=== PATIENT | female | born 1950 | race Caucasian/White ===

== ENCOUNTER → 2017-10-22 10:01 | Outpatient (CLI) | payer OTHER, SELFPAY ==
[2017-10-22 11:21] LABS: Add Manual Diff / Slide Review NO; Basophils Percent Auto 0.7 % (0-2); Eosinophils Percent Auto 2.8 % (2-4); Hematocrit 38.4 % (36-46); Hemoglobin 13.3 g/dL (12.0-16.0); Mean Corpuscular HGB Conc 34.7 % (30-36); Mean Corpuscular Hemoglobin 31.6 PG (26-34); Mean Corpuscular Volume 91.2 fL (80-100); Monocytes Percent Auto 7.3 % (3-14); Neutrophils Absolute Auto 2100 /uL (3000-5900); Neutrophils Percent Auto 48.2 % (50-75); Platelet Count 231 X10^3/uL (150-400); Red Blood Cell Count 4.21 X10^6/uL (4.0-5.2); Red Cell Distribution Width 13.8 % (11.6-14.8); White Blood Cell Count 4.4 X10^3/uL (4.5-11.0)
[2017-10-22 11:26] LABS: Alanine Aminotransferase 29 IU/L (9-52); Albumin 4.1 g/dL (3.5-5.0); Albumin Globulin Ratio 1.5 (1.0-2.8); Alkaline Phosphatase 59 U/L (38-126); Aspartate Aminotransferase 22 IU/L (14-36); Bilirubin Total 0.4 mg/dL (0.2-1.3); Bilirubin Unconjugated 0.1 mg/dL (0.0-1.1); Globulin 2.8 g/dL (1.7-4.1); HEMOLYSIS < 15 (0-50); Total Protein 6.9 g/dL (6.3-8.2)
[2017-10-22 11:48] LABS: Thyroid Stimulating Hormone 1.51 uIU/mL (0.47-4.68)
[2017-10-22 12:36] LABS: Erythrocyte Sedimentation Rate 41 MM/HR (0-20)
== END ==
PROVIDERS: Family Provider Family Medicine; PCP Family Medicine; Visit Provider Physician Assistant Medical
DX: L50.8 Other urticaria (principal)
CPT/HCPCS: 36415; 80076; 84443; 85025; 85651

== ENCOUNTER → 2017-11-09 10:58 | Outpatient (CLI) | payer OTHER, SELFPAY ==
--- NOTE | 2017-11-09 | DI.MG.S_ITS ---
BILATERAL DIGITAL SCREENING MAMMOGRAM 3D/2D WITH CAD: 11/09/2017 CLINICAL: Routine screening. Comparison is made to exams dated: 11/04/2016 mammogram, 11/04/2015 mammogram, and 11/02/2014 mammogram - [facility]. There are scattered fibroglandular elements in both breasts. Current study was also evaluated with a Computer Aided Detection (CAD) system. No significant masses, calcifications, or other findings are seen in either breast. There has been no significant interval change. IMPRESSION: NEGATIVE There is no mammographic evidence of malignancy. A 1 year screening mammogram is recommended. This exam was interpreted at Station ID: [id number]. NOTE: For mammograms, a report in lay terms will be sent to the patient. Approximately 15% of breast malignancies will not be visualized mammographically. In the management of a palpable breast mass, a negative mammogram must not discourage biopsy of a clinically suspicious lesion. Electronically Signed By: Hernán [email or web address]:11/09/2017 15:58:26 letter sent: Normal Exam ACR BI-RADS Category 1: Negative [id number]
== END ==
PROVIDERS: Family Provider Family Medicine; PCP Family Medicine; Visit Provider Family Medicine
DX: Z12.31 Encounter for screening mammogram for malignant neoplasm of breast (principal)
CPT/HCPCS: 77063; 77067

== ENCOUNTER 2018-02-10 11:15 | Outpatient (RCR) | payer OTHER, SELFPAY ==
--- NOTE | 2018-01-17 16:56 | PT.OIE ---
Current Diagnoses Trochanteric bursitis, right hip (01/17/18) Difficulty in walking, not elsewhere classified (01/17/18) Weakness (01/17/18) Past Medical History (Last Reviewed 11/18/17 @ 11:58 by Zackary Soni MD) Mixed hyperlipidemia (Chronic 04/11/15) Osteopenia (Chronic 04/11/15) Other seasonal allergic rhinitis (Chronic 04/11/15) Chronic fatigue (Chronic 11/07/15) Weakness of shoulder (Chronic 11/07/15) Weakness of both hips (Chronic 11/07/15) History of cervical spinal arthrodesis (Chronic 03/06/16) Vertigo (Chronic 03/06/16) Gastroesophageal reflux disease (Chronic 06/05/16) Paresthesia of upper extremity (Chronic 10/08/16) Hearing loss (Chronic 06/10/17) Sacroiliac joint pain (Chronic 06/10/17) Hives (Chronic 08/09/17) Allergic rhinitis (Chronic Unknown) DJD (degenerative joint disease) of cervical spine (Chronic Unknown) GERD (gastroesophageal reflux disease) (Chronic Unknown) Hyperlipemia (Chronic Unknown) Migraines (Chronic Unknown) Osteopenia (Chronic Unknown) Osteoporosis (Chronic Unknown) Persistent postural-perceptual dizziness (Chronic Unknown) Psoriasis (Chronic Unknown) Carpal tunnel syndrome (Resolved Unknown) Past Surgical History (Last Reviewed 11/18/17 @ 11:58 by Zackary Soni MD) Hx of cervical discectomy (Resolved Unknown) Provider Visit Care Team Role Provider Type Zackary Soni MD Family Provider Physician Primary Care Provider Specialty: Family Practice Address: [address] [place] [address], [id number] Email: [email or web address] Brayden Hooks MD Attending Provider Physician Specialty: Orthopedic Surgery Address: [address] [place] [address], [id number] Email: Physical Therapy Initial Evaluation PT-OP-A Visit Information Start: 01/17/18 15:17 Freq: Status: Active Protocol: Document 01/17/18 15:18 [facility] (Rec: 01/17/18 15:19 [facility] [id number]) Out-Patient Physical Therapy Visit Information Visit Information Visit Type Initial Evaluation Visit Start Time 15:18 Visit Stop Time 16:15 Total Visit Minutes 57 Visit Number 1 Evaluation Information Evaluation Date 01/17/18 PT-OP-B Current Condition Start: 01/17/18 15:17 Freq: Status: Active Protocol: Document 01/17/18 15:18 [facility] (Rec: 01/17/18 16:18 [facility] [id number]) Current Condition History of Current Condition History of Current Condition May 2017, right knee buckled almost fell experiencing severe pain, felt like bones rubbing together. After that states she just lived with the pain hoping it would go away. Had similar pain may 2015 eliminated with cortisone shot. Had shot again 08/18/17, no improvement . In constant fear of leg giving out again, difficulty driving and getting in and out of car, not taking walks as previously, feels like leg constantly wanting to do a charley horse, uncomfortable in bed. Prior PT for other issues including vertigo, not for this current pain. Pain varies 2-9/10. No significant N/T. Cervical spine surgery May 2012. Prior Treatments and Tests x-ray right hip and spine negative Treatment Goals Patient/Caregiver Goals Decrease pain, allow her to resume usual activities including walking for 1 hour, driving without increase in pain. Prior Functional Status Baseline Function- ADL's Independent Baseline Function- Mobility Independent Baseline Function- Gait indep, no device up to 1 hour, hills. 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 PT-OP-C Subjective Start: 01/17/18 15:17 Freq: Status: Active Protocol: Document 01/17/18 15:18 [facility] (Rec: 01/17/18 16:54 [facility] [id number]) Patient Questionnaires Lower Extremity Functional Scale LEFS Impairment 40 to 59% Impaired (Score 32- 47) OP-PT Pain Assessment Pain Assessment Grid Paper Pain Assessment Grid Completed Yes Location Right Lateral Hip Pain Location Details entire right LE Intensity 9 Scale Used Numeric (1 - 10) Description Aching Burning Pressure Radiating Spasm Tender Throbbing Frequency Frequent Pain Aggravating Factors Activity Standing Walking Pain Alleviating Factors Inactivity Lying Supine Home Pain Medication Use Pain Medications Used No Pain Behaviors Pain Behaviors Facial Grimacing Guarding Wincing PT-OP-F Manual Assessment Start: 01/17/18 15:17 Freq: Status: Active Protocol: Document 01/17/18 15:18 [facility] (Rec: 01/17/18 16:54 [facility] [id number]) Manual Assessments Soft Tissue Assessment Soft Tissue Mobility Assessment Palpable tightness hollie IT bands right greater than left PT-OP-G Mobility & Gait Start: 01/17/18 15:17 Freq: Status: Active Protocol: Document 01/17/18 15:18 [facility] (Rec: 01/17/18 16:54 [facility] [id number]) OP Mobility Evaluation Bed Mobility Rolling indep Supine to and from Sit indep OP Gait Assessment Gait Gait Assistance Required: Independent Assistive Devices Assistive Device None Orthotic/Prosthetic Devices or Brace: No Gait Deviations General Gait Pattern Antalgic Factors Limiting Gait Function Factors Limiting Gait Function Decreased Strength Pain Comments Gait Comments increased eversion right foot and ER right hip with gait. PT-OP-H Neuro Start: 01/17/18 15:17 Freq: Status: Active Protocol: Document 01/17/18 15:18 [facility] (Rec: 01/17/18 16:54 [facility] [id number]) Sensation Evaluation Gross Sensation Gross Sensation WNL PT-OP-J Posture/Palpation/Skin Start: 01/17/18 15:17 Freq: Status: Active Protocol: Document 01/17/18 15:18 [facility] (Rec: 01/17/18 16:54 [facility] [id number]) Posture Evaluation Position Standing Head/C-Spine Posture Forward Head T-Spine Posture Increased Kyphosis Shoulder Posture (R) Rounded (R) Elevated Hip Posture (R) Externally Rotated Foot Arch (L) Medium Arch (R) Medium Arch Palpation Assessment Location One Palpation Location lateral hip, greater trochanter Palpation Findings Tenderness PT-OP-K Range of Motion Start: 01/17/18 15:17 Freq: Status: Active Protocol: Document 01/17/18 15:18 [facility] (Rec: 01/17/18 16:54 [facility] [id number]) Lumbar Spine Range of Motion Lumbar Spine Active ROM Limitations Soft Tissue Tightness Comments mild decrease all motions Hip Goniometric Range of Motion Hip Measured in Degrees Left Hip ROM WFL No Flexion w/Knee Flexed 120 Straight Leg Raise 70 Extension 0 Internal Rotation 20 External Rotation 55 Right Hip ROM WFL No Testing Position Supine Flexion w/Knee Flexed 100 Straight Leg Raise 65 Extension 0 Internal Rotation 10 External Rotation 40 Hip ROM Limitations Hip ROM Limitations Soft Tissue Tightness Muscle Weakness Pain Knee Goniometric Range of Motion Knee ROM Limitations Comments hollie knee ROM WNL Ankle and Foot Goniometric Range of Motion Ankle and Foot ROM Limitations ROM Limitations Soft Tissue Tightness Comments hollie ankles limited in df: left 5, right 0 PT-OP-M Strength Start: 01/17/18 15:17 Freq: Status: Active Protocol: Document 01/17/18 15:18 [facility] (Rec: 01/17/18 16:54 [facility] [id number]) Trunk Strength Trunk Manual Muscle Testing Flexion 3+ Fair+ Extension 3 Fair Hip Strength Hip Manual Muscle Testing Left Flexion (L2) 4+ Good+ Extension (S1) 4- Good- Abduction 4- Good- External Rotation 4- Good- Internal Rotation 4+ Good+ Right Flexion (L2) 4- Good- Extension (S1) 3+ Fair+ Abduction 3+ Fair+ External Rotation 3+ Fair+ Internal Rotation 4 Good Knee Strength Knee Manual Muscle Testing Left Flexion (S2) 5 Normal Extension (L3) 5 Normal Right Flexion (S2) 4 Good Extension (L3) 4 Good Ankle/Foot Strength Ankle and Foot Manual Muscle Testing Left Dorsiflexion (L4) 5 Normal Plantarflexion (S1) 5 Normal Inversion 5 Normal Eversion (S1) 5 Normal Right Dorsiflexion (L4) 4- Good- Plantarflexion (S1) 4- Good- Inversion 4- Good- Eversion (S1) 4 Good PT-OP-Q Treatments Start: 01/17/18 15:17 Freq: Status: Active Protocol: Document 01/17/18 15:18 [facility] (Rec: 01/17/18 16:54 [facility] [id number]) Self-Care/Home Management Treatment Education Patient Education Home Exercise Program Other Education Bed positioning; pillow between legs on side PT-OP-R Modalities Start: 01/17/18 15:17 Freq: Status: Active Protocol: Document 01/17/18 15:18 [facility] (Rec: 01/17/18 16:54 [facility] [id number]) Hot Pack/Cold Pack Treatment Cold Pack Location right lateral hip Patient Position Hooklying Treatment Duration (minutes) 10 PT-OP-T Assessment and Plan Start: 01/17/18 15:17 Freq: Status: Active Protocol: Document 01/17/18 15:18 [facility] (Rec: 01/17/18 16:54 [facility] [id number]) Physical Therapy Assessment Rehab Potential Rehabilitation Potential Good Evaluation Complexity Number of Personal Factors/Comorbidities 1-2 Number of Body Systems Impaired 4 or More Clinical Presentation at Evaluation Evolving Impairments Impairments Activity Tolerance Functional Mobility Gait Pain ROM Strength Goals Five Impairment Interrupted sleep due to pain Short Term Goal (STG) Instruct patient in correct, supported sleeping positions STG Duration 2 wks Mcfp Goal (LTG) Patient able to resume normal sleeping pattern without being limited by pain LTG Duration 12 wks Four Impairment Strength Short Term Goal (STG) Initiate LE strengthening including instructing in HEP STG Duration 2 wks Interior Mechanic Goal (LTG) Patient to demonstrate 5/5 muscle strength hollie LE's and be independent with HEP for mcc fitness and pain management LTG Duration 12 wks Three Impairment ROM Short Term Goal (STG) Instruct patient in HEP for ROM/flexibility for right hip STG Duration 2 wks Interior Mechanic Goal (LTG) Patient to demonstrate WNL ROM right hip and be independent in HEP LTG Duration 12 wks Two Impairment Gait Short Term Goal (STG) Patient to decrease limp by 50 % STG Duration 6 wks Mcfp Goal (LTG) Patient able to ambulate without limp LTG Duration 12 wks One Impairment Activity tolerance Short Term Goal (STG) Patient able to increase her walking ability to 60 min level surfaces with minimal to no increase in pain STG Duration 6 wks Interior Mechanic Goal (LTG) Patient to resume prior walks of 60 min including hills with minimal to no increase in pain LTG Duration 12 wks Assessment Summary Assessment Patient presents with function -limiting right pain with symptoms indicative of trochanteric bursitis right. She would benefit from PT for pain management, ROM, flexibility, strengthening, gait training, patient education to help her resume her normal mobility and activity tolerance without pain. Physical Therapy Plan Frequency and Duration Frequency of Treatment 2x/Week Duration of Treatment 12 wks Plan of Care Start Date 01/17/18 Plan of Care End Date 04/19/18 Therapeutic Interventions Therapeutic Interventions Aquatic Therapy Gait Training Home Exercise Program Manual Therapy Neuromuscular Re-education Patient/Caregiver Education Self-Care/Home Management Soft Tissue Mobilization Therapeutic Activities Therapeutic Exercises Modalities Cold Pack/Ice Massage Electric Stimulation Hot Packs Iontophoresis Ultrasound Next Visit Focus/Plan Next Note Type Treatment Note Next Visit Plan Review HEP, progress ther ex for strengthening, ROM, flexibility, gait, modalities and manual therapy as indicated.
--- NOTE | 2018-01-17 16:56 | PT.OPPOC ---
Current Diagnoses Trochanteric bursitis, right hip (01/17/18) Difficulty in walking, not elsewhere classified (01/17/18) Weakness (01/17/18) Provider Visit Care Team Role Provider Type Zackary Soni MD Family Provider Physician Primary Care Provider Specialty: Family Practice Address: [address] [place] [address], [id number] Email: [email or web address] Brayden Hooks MD Attending Provider Physician Specialty: Orthopedic Surgery Address: [address] [place] [address], [id number] Email: [email or web address] Plan Of Care PT-OP-T Assessment and Plan Start: 01/17/18 15:17 Freq: Status: Active Protocol: Document 01/17/18 15:18 [facility] (Rec: 01/17/18 16:54 [facility] [id number]) Physical Therapy Assessment Rehab Potential Rehabilitation Potential Good Evaluation Complexity Number of Personal Factors/Comorbidities 1-2 Number of Body Systems Impaired 4 or More Clinical Presentation at Evaluation Evolving Impairments Impairments Activity Tolerance Functional Mobility Gait Pain ROM Strength Goals Five Impairment Interrupted sleep due to pain Short Term Goal (STG) Instruct patient in correct, supported sleeping positions STG Duration 2 wks Shoe Clerk Goal (LTG) Patient able to resume normal sleeping pattern without being limited by pain LTG Duration 12 wks Four Impairment Strength Short Term Goal (STG) Initiate LE strengthening including instructing in HEP STG Duration 2 wks Shoe Clerk Goal (LTG) Patient to demonstrate 5/5 muscle strength hollie LE's and be independent with HEP for manager intermediate fitness and pain management LTG Duration 12 wks Three Impairment ROM Short Term Goal (STG) Instruct patient in HEP for ROM/flexibility for right hip STG Duration 2 wks Mcc Goal (LTG) Patient to demonstrate WNL ROM right hip and be independent in HEP LTG Duration 12 wks Two Impairment Gait Short Term Goal (STG) Patient to decrease limp by 50 % STG Duration 6 wks Shoe Clerk Goal (LTG) Patient able to ambulate without limp LTG Duration 12 wks One Impairment Activity tolerance Short Term Goal (STG) Patient able to increase her walking ability to 60 min level surfaces with minimal to no increase in pain STG Duration 6 wks Shoe Clerk Goal (LTG) Patient to resume prior walks of 60 min including hills with minimal to no increase in pain LTG Duration 12 wks Assessment Summary Assessment Patient presents with function -limiting right pain with symptoms indicative of trochanteric bursitis right. She would benefit from PT for pain management, ROM, flexibility, strengthening, gait training, patient education to help her resume her normal mobility and activity tolerance without pain. Physical Therapy Plan Frequency and Duration Frequency of Treatment 2x/Week Duration of Treatment 12 wks Plan of Care Start Date 01/17/18 Plan of Care End Date 04/19/18 Therapeutic Interventions Therapeutic Interventions Aquatic Therapy Gait Training Home Exercise Program Manual Therapy Neuromuscular Re-education Patient/Caregiver Education Self-Care/Home Management Soft Tissue Mobilization Therapeutic Activities Therapeutic Exercises Modalities Cold Pack/Ice Massage Electric Stimulation Hot Packs Iontophoresis Ultrasound Next Visit Focus/Plan Next Note Type Treatment Note Next Visit Plan Review HEP, progress ther ex for strengthening, ROM, flexibility, gait, modalities and manual therapy as indicated. Plan of Care Dates Plan of Care Start Date 01/17/18 Plan of Care End Date 04/19/18 Please Sign and Return: I have reviewed this Plan of Care and certify that the skilled therapy services above are required to meet the patient?s needs. Physician Signature Date Printed Name and Credentials Clinical Instructor Signature Printed Name and Credentials
--- NOTE | 2018-01-20 16:15 | PT.OTN ---
Current Diagnoses Trochanteric bursitis, right hip (01/20/18) Physical Therapy Treatment Note PT-OP-A Visit Information Start: 01/17/18 15:17 Freq: Status: Active Protocol: Document 01/20/18 15:14 SAK (Rec: 01/20/18 16:[address] 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 After that states she just lived with the pain hoping it would go away. Had similar pain may 2015 eliminated with cortisone shot. Had shot again 08/18/17, no improvement . In constant fear of leg giving out again, difficulty driving and getting in and out of car, not taking walks as previously, feels like leg constantly wanting to do a charley horse, uncomfortable in bed. Prior PT for other issues including vertigo, not for this current pain. Pain varies 2-9/10. No significant N/T. Cervical spine surgery May 2012. Prior Treatments and Tests x-ray right hip and spine negative Treatment Goals Patient/Caregiver Goals Decrease pain, allow her to resume usual activities including walking for 1 hour, driving without increase in pain. Prior Functional Status Baseline Function- ADL's Independent Baseline Function- Mobility Independent Baseline Function- Gait indep, no device up to 1 hour, hills. 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 (Rec: 01/17/18 16:[address] [facility] [id number]) Manual Assessments Soft Tissue Assessment Soft Tissue Mobility Assessment Palpable tightness hollie IT bands right greater than left PT-OP-G Mobility & Gait Start: 01/17/18 15:17 Freq: Status: Active Protocol: Document 01/17/18 15:[address] [facility] (Rec: 01/17/18 16:[address] [facility] [id number]) OP Mobility Evaluation Bed Mobility Rolling indep Supine to and from Sit indep OP Gait Assessment Gait Gait Assistance Required: Independent Assistive Devices Assistive Device None Orthotic/Prosthetic Devices or Brace: No Gait Deviations General Gait Pattern Antalgic Factors Limiting Gait Function Factors Limiting Gait Function Decreased Strength Pain Comments Gait Comments increased eversion right foot and ER right hip with gait. PT-OP-H Neuro Start: 01/17/18 15:17 Freq: Status: Active Protocol: Document 01/17/18 15:[address] [facility] (Rec: 01/17/18 16:[address] [facility] [id number]) Sensation Evaluation Gross Sensation Gross Sensation WNL PT-OP-J Posture/Palpation/Skin Start: 01/17/18 15:17 Freq: Status: Active Protocol: Document 01/17/18 15:[address] [facility] (Rec: 01/17/18 16:[address] [facility] [id number]) Posture Evaluation Position Standing Head/C-Spine Posture Forward Head T-Spine Posture Increased Kyphosis Shoulder Posture (R) Rounded (R) Elevated Hip Posture (R) Externally Rotated Foot Arch (L) Medium Arch (R) Medium Arch Palpation Assessment Location One Palpation Location lateral hip, greater trochanter Palpation Findings Tenderness PT-OP-K Range of Motion Start: 01/17/18 15:17 Freq: Status: Active Protocol: Document 01/17/18 15:[address] [facility] (Rec: 01/17/18 16:[address] [facility] [id number]) Lumbar Spine Range of Motion Lumbar Spine Active ROM Limitations Soft Tissue Tightness Comments mild decrease all motions Hip Goniometric Range of Motion Hip Measured in Degrees Left Hip ROM WFL No Flexion w/Knee Flexed 120 Straight Leg Raise 70 Extension 0 Internal Rotation 20 External Rotation 55 Right Hip ROM WFL No Testing Position Supine Flexion w/Knee Flexed 100 Straight Leg Raise 65 Extension 0 Internal Rotation 10 External Rotation 40 Hip ROM Limitations Hip ROM Limitations Soft Tissue Tightness Muscle Weakness Pain Knee Goniometric Range of Motion Knee ROM Limitations Comments hollie knee ROM WNL Ankle and Foot Goniometric Range of Motion Ankle and Foot ROM Limitations ROM Limitations Soft Tissue Tightness Comments hollie ankles limited in df: left 5, right 0 PT-OP-M Strength Start: 01/17/18 15:17 Freq: Status: Active Protocol: Document 01/17/18 15:[address] [facility] (Rec: 01/17/18 16:[address] [facility] [id number]) Trunk Strength Trunk Manual Muscle Testing Flexion 3+ Fair+ Extension 3 Fair Hip Strength Hip Manual Muscle Testing Left Flexion (L2) 4+ Good+ Extension (S1) 4- Good- Abduction 4- Good- External Rotation 4- Good- Internal Rotation 4+ Good+ Right Flexion (L2) 4- Good- Extension (S1) 3+ Fair+ Abduction 3+ Fair+ External Rotation 3+ Fair+ Internal Rotation 4 Good Knee Strength Knee Manual Muscle Testing Left Flexion (S2) 5 Normal Extension (L3) 5 Normal Right Flexion (S2) 4 Good Extension (L3) 4 Good Ankle/Foot Strength Ankle and Foot Manual Muscle Testing Left Dorsiflexion (L4) 5 Normal Plantarflexion (S1) 5 Normal Inversion 5 Normal Eversion (S1) 5 Normal Right Dorsiflexion (L4) 4- Good- Plantarflexion (S1) 4- Good- Inversion 4- Good- Eversion (S1) 4 Good PT-OP-Q Treatments Start: 01/17/18 15:17 Freq: Status: Active Protocol: Document 01/20/18 15:[address] [facility] (Rec: 01/20/18 16:[address] [facility] [id number]) Cardio Equipment Recumbent Stepper (Sci-Fit) Duration (Minutes) 7 Resistance 2 Seat Position 7 Gym Equipment Shuttle Recovery Unilateral Squats Resistance 37 Shuttle Recovery Platform Stable Bilateral Squats Resistance 50 Shuttle Recovery Platform Stable Therapeutic Exercises Supine Exercises 2 Supine Exercise Name SKTC, piriformis stretch, hamstring stretch Reps/Minutes 2x 1 Supine Exercise Name gluteal set, pillow squeeze Reps/Minutes 10x Sidelying Exercises 1 Sidelying Exercise Name clamshell, reverse clamshell Reps/Minutes 10x Standing Exercises 1 Standing Exercise Name HC stretch Equipment Used CAM Reps/Minutes 2x Self-Care/Home Management Treatment Education Patient Education Home Exercise Program Pain Management Other Education Corrections made to HEP performance, cues to exercise in pain-free ROM and intensity PT-OP-R Modalities Start: 01/17/18 15:17 Freq: Status: Active Protocol: Document 01/20/18 15:14 SAK (Rec: 01/20/18 16:15 [facility]AK [id number]) Hot Pack/Cold Pack Treatment Cold Pack Location right lateral hip Patient Position Hooklying Treatment Duration (minutes) 10 Ultrasound Therapy Treatment Right Lateral Hip Treatment Duration (minutes) 8 Patient Position Sidelying Mode Setting Pulsed Duty Cycle 50% Intensity Setting (w/cm2) 1.5 Comments piriformis PT-OP-T Assessment and Plan Start: 01/17/18 15:17 Freq: Status: Active Protocol: Document 01/20/18 15:[address] [facility] (Rec: 01/20/18 16:[address] 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 LTG Duration 12 wks Three Impairment ROM Short Term Goal (STG) Instruct patient in HEP for ROM/flexibility for right hip STG Duration 2 wks Half-Way Goal (LTG) Patient to demonstrate WNL ROM right hip and be independent in HEP LTG Duration 12 wks Two Impairment Gait Short Term Goal (STG) Patient to decrease limp by 50 % STG Duration 6 wks Vehicle Trimmer Goal (LTG) Patient able to ambulate without limp LTG Duration 12 wks One Impairment Activity tolerance Short Term Goal (STG) Patient able to increase her walking ability to 60 min level surfaces with minimal to no increase in pain STG Duration 6 wks Half-Way Goal (LTG) Patient to resume prior walks of 60 min including hills with minimal to no increase in pain LTG Duration 12 wks Assessment Summary Assessment Patient required frequent verbal and manual cues for correct form with exercise performance. Did not like iontophoresis; states patch started to itch after 10 min and she removed it. Physical Therapy Plan Frequency and Duration Frequency of Treatment 2x/Week Duration of Treatment 12 wks Plan of Care Start Date 01/17/18 Plan of Care End Date 04/19/18 Therapeutic Interventions Therapeutic Interventions Aquatic Therapy Gait Training Home Exercise Program Manual Therapy Neuromuscular Re-education Patient/Caregiver Education Self-Care/Home Management Soft Tissue Mobilization Therapeutic Activities Therapeutic Exercises Modalities Cold Pack/Ice Massage Electric Stimulation Hot Packs Iontophoresis Ultrasound Next Visit Focus/Plan Next Note Type Treatment Note Next Visit Plan Assess response to today's appointment, gently progress exercises as tolerated. Consider kinesiotape, e-stim.
--- NOTE | 2018-01-27 16:36 | PT.OTN ---
Current Diagnoses Trochanteric bursitis, right hip (01/27/18) Physical Therapy Treatment Note PT-OP-A Visit Information Start: 01/17/18 15:17 Freq: Status: Active Protocol: Document 01/27/18 15:17 [facility] (Rec: 01/27/18 16:34 [facility] [id number]) Out-Patient Physical Therapy Visit Information Visit Information Visit Type Treatment Note Visit Start Time 15:15 Visit Stop Time 16:08 Total Visit Minutes 53 Visit Number 3 Number of CLINICAL VETERINARIAN Visits 0 Evaluation Information Evaluation Date 01/17/18 PT-OP-B Current Condition Start: 01/17/18 15:17 Freq: Status: Active Protocol: Document 01/17/18 15:18 SAK (Rec: 01/17/18 16:18 [facility] [id number]) Current Condition History of Current Condition History of Current Condition May 2017, right knee buckled almost fell experiencing severe pain, felt like bones rubbing together. After that states she just lived with the pain hoping it would go away. Had similar pain may 2015 eliminated with cortisone shot. Had shot again 08/18/17, no improvement . In constant fear of leg giving out again, difficulty driving and getting in and out of car, not taking walks as previously, feels like leg constantly wanting to do a charley horse, uncomfortable in bed. Prior PT for other issues including vertigo, not for this current pain. Pain varies 2-9/10. No significant N/T. Cervical spine surgery May 2012. Prior Treatments and Tests x-ray right hip and spine negative Treatment Goals Patient/Caregiver Goals Decrease pain, allow her to resume usual activities including walking for 1 hour, driving without increase in pain. Prior Functional Status Baseline Function- ADL's Independent Baseline Function- Mobility Independent Baseline Function- Gait indep, no device up to 1 hour, hills. 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 Feels her exercises help loosen up her hip. PT-OP-F Manual Assessment Start: 01/17/18 15:17 Freq: Status: Active Protocol: Document 01/17/18 15:18 [facility] (Rec: 01/17/18 16:54 [facility] [id number]) Manual Assessments Soft Tissue Assessment Soft Tissue Mobility Assessment Palpable tightness hollie IT bands right greater than left PT-OP-G Mobility & Gait Start: 01/17/18 15:17 Freq: Status: Active Protocol: Document 01/17/18 15:18 [facility] (Rec: 01/17/18 16:54 [facility] [id number]) OP Mobility Evaluation Bed Mobility Rolling indep Supine to and from Sit indep OP Gait Assessment Gait Gait Assistance Required: Independent Assistive Devices Assistive Device None Orthotic/Prosthetic Devices or Brace: No Gait Deviations General Gait Pattern Antalgic Factors Limiting Gait Function Factors Limiting Gait Function Decreased Strength Pain Comments Gait Comments increased eversion right foot and ER right hip with gait. PT-OP-H Neuro Start: 01/17/18 15:17 Freq: Status: Active Protocol: Document 01/17/18 15:18 [facility] (Rec: 01/17/18 16:54 [facility] [id number]) Sensation Evaluation Gross Sensation Gross Sensation WNL PT-OP-J Posture/Palpation/Skin Start: 01/17/18 15:17 Freq: Status: Active Protocol: Document 01/17/18 15:18 [facility] (Rec: 01/17/18 16:54 [facility] [id number]) Posture Evaluation Position Standing Head/C-Spine Posture Forward Head T-Spine Posture Increased Kyphosis Shoulder Posture (R) Rounded (R) Elevated Hip Posture (R) Externally Rotated Foot Arch (L) Medium Arch (R) Medium Arch Palpation Assessment Location One Palpation Location lateral hip, greater trochanter Palpation Findings Tenderness PT-OP-K Range of Motion Start: 01/17/18 15:17 Freq: Status: Active Protocol: Document 01/17/18 15:18 [facility] (Rec: 01/17/18 16:54 [facility] [id number]) Lumbar Spine Range of Motion Lumbar Spine Active ROM Limitations Soft Tissue Tightness Comments mild decrease all motions Hip Goniometric Range of Motion Hip Measured in Degrees Left Hip ROM WFL No Flexion w/Knee Flexed 120 Straight Leg Raise 70 Extension 0 Internal Rotation 20 External Rotation 55 Right Hip ROM WFL No Testing Position Supine Flexion w/Knee Flexed 100 Straight Leg Raise 65 Extension 0 Internal Rotation 10 External Rotation 40 Hip ROM Limitations Hip ROM Limitations Soft Tissue Tightness Muscle Weakness Pain Knee Goniometric Range of Motion Knee ROM Limitations Comments hollie knee ROM WNL Ankle and Foot Goniometric Range of Motion Ankle and Foot ROM Limitations ROM Limitations Soft Tissue Tightness Comments hollie ankles limited in df: left 5, right 0 PT-OP-M Strength Start: 01/17/18 15:17 Freq: Status: Active Protocol: Document 01/17/18 15:18 [facility] (Rec: 01/17/18 16:54 [facility] [id number]) Trunk Strength Trunk Manual Muscle Testing Flexion 3+ Fair+ Extension 3 Fair Hip Strength Hip Manual Muscle Testing Left Flexion (L2) 4+ Good+ Extension (S1) 4- Good- Abduction 4- Good- External Rotation 4- Good- Internal Rotation 4+ Good+ Right Flexion (L2) 4- Good- Extension (S1) 3+ Fair+ Abduction 3+ Fair+ External Rotation 3+ Fair+ Internal Rotation 4 Good Knee Strength Knee Manual Muscle Testing Left Flexion (S2) 5 Normal Extension (L3) 5 Normal Right Flexion (S2) 4 Good Extension (L3) 4 Good Ankle/Foot Strength Ankle and Foot Manual Muscle Testing Left Dorsiflexion (L4) 5 Normal Plantarflexion (S1) 5 Normal Inversion 5 Normal Eversion (S1) 5 Normal Right Dorsiflexion (L4) 4- Good- Plantarflexion (S1) 4- Good- Inversion 4- Good- Eversion (S1) 4 Good PT-OP-Q Treatments Start: 01/17/18 15:17 Freq: Status: Active Protocol: Document 01/27/18 15:17 [facility] (Rec: 01/27/18 16:34 [facility] [id number]) Cardio Equipment Recumbent Stepper (Sci-Fit) Duration (Minutes) 8 Resistance 2 Seat Position 7 Gym Equipment Shuttle Recovery Unilateral Squats Resistance 37 Shuttle Recovery Platform Stable Bilateral Squats Resistance 50 Shuttle Recovery Platform Stable Therapeutic Exercises Supine Exercises 6 Supine Exercise Name SLR Reps/Minutes 10x 4 Supine Exercise Name bridge Reps/Minutes 10 3 Supine Exercise Name manual hamstring stretch Reps/Minutes 2x 2 Supine Exercise Name SKTC, piriformis stretch, hamstring stretch Reps/Minutes 2x 1 Supine Exercise Name gluteal set, pillow squeeze Reps/Minutes 10x Standing Exercises 1 Standing Exercise Name HC stretch Equipment Used CAM Reps/Minutes 2x Self-Care/Home Management Treatment Education Patient Education Home Exercise Program Other Education updated HEP with SLR and bridge added PT-OP-R Modalities Start: 01/17/18 15:17 Freq: Status: Active Protocol: Document 01/27/18 15:17 [facility] (Rec: 01/27/18 16:34 [facility] [id number]) Hot Pack/Cold Pack Treatment Cold Pack Location right lateral hip Patient Position Hooklying Treatment Duration (minutes) 10 Ultrasound Therapy Treatment Right Lateral Hip Treatment Duration (minutes) 8 Patient Position Sidelying Mode Setting Pulsed Duty Cycle 50% Intensity Setting (w/cm2) 1.5 Comments piriformis PT-OP-T Assessment and Plan Start: 01/17/18 15:17 Freq: Status: Active Protocol: Document 01/27/18 15:17 [facility] (Rec: 01/27/18 16:34 [facility] [id number]) Physical Therapy Assessment Goals Five Impairment Interrupted sleep due to pain Short Term Goal (STG) Instruct patient in correct, supported sleeping positions STG Duration 2 wks Half-Way Goal (LTG) Patient able to resume normal sleeping pattern without being limited by pain LTG Duration 12 wks Four Impairment Strength Short Term Goal (STG) Initiate LE strengthening including instructing in HEP STG Duration 2 wks Half-Way Goal (LTG) Patient to demonstrate 5/5 muscle strength hollie LE's and be independent with HEP for senior living fitness and pain management LTG Duration 12 wks Three Impairment ROM Short Term Goal (STG) Instruct patient in HEP for ROM/flexibility for right hip STG Duration 2 wks Half-Way Goal (LTG) Patient to demonstrate WNL ROM right hip and be independent in HEP LTG Duration 12 wks Two Impairment Gait Short Term Goal (STG) Patient to decrease limp by 50 % STG Duration 6 wks Half-Way Goal (LTG) Patient able to ambulate without limp LTG Duration 12 wks One Impairment Activity tolerance Short Term Goal (STG) Patient able to increase her walking ability to 60 min level surfaces with minimal to no increase in pain STG Duration 6 wks Paid Search Specialist Goal (LTG) Patient to resume prior walks of 60 min including hills with minimal to no increase in pain LTG Duration 12 wks Assessment Summary Assessment Good tolerance for HEP. Pain easily exacerbated with activity. Physical Therapy Plan Frequency and Duration Frequency of Treatment 2x/Week Duration of Treatment 12 wks Plan of Care Start Date 01/17/18 Plan of Care End Date 04/19/18 Therapeutic Interventions Therapeutic Interventions Aquatic Therapy Gait Training Home Exercise Program Manual Therapy Neuromuscular Re-education Patient/Caregiver Education Self-Care/Home Management Soft Tissue Mobilization Therapeutic Activities Therapeutic Exercises Modalities Cold Pack/Ice Massage Electric Stimulation Hot Packs Iontophoresis Ultrasound Next Visit Focus/Plan Next Note Type Treatment Note Next Visit Plan Progression of ther ex as tolerated, modalities and manual therapy as needed.
--- NOTE | 2018-01-31 16:33 | PT.OTN ---
Current Diagnoses Trochanteric bursitis, right hip (01/31/18) Physical Therapy Treatment Note PT-OP-A Visit Information Start: 01/17/18 15:17 Freq: Status: Active Protocol: Document 01/31/18 15:25 SAK (Rec: 01/31/18 16:13 [facility] [id number]) Out-Patient Physical Therapy Visit Information Visit Information Visit Type Treatment Note Visit Start Time 15:15 Visit Stop Time 16:10 Total Visit Minutes 55 Visit Number 4 Number of ENVIRONMENT ARTIST Visits 0 Evaluation Information Evaluation Date 01/17/18 PT-OP-B Current Condition Start: 01/17/18 15:17 Freq: Status: Active Protocol: Document 01/17/18 15:18 SAK (Rec: 01/17/18 16:18 [facility] [id number]) Current Condition History of Current Condition History of Current Condition May 2017, right knee buckled almost fell experiencing severe pain, felt like bones rubbing together. After that states she just lived with the pain hoping it would go away. Had similar pain may 2015 eliminated with cortisone shot. Had shot again 08/18/17, no improvement . In constant fear of leg giving out again, difficulty driving and getting in and out of car, not taking walks as previously, feels like leg constantly wanting to do a charley horse, uncomfortable in bed. Prior PT for other issues including vertigo, not for this current pain. Pain varies 2-9/10. No significant N/T. Cervical spine surgery May 2012. Prior Treatments and Tests x-ray right hip and spine negative Treatment Goals Patient/Caregiver Goals Decrease pain, allow her to resume usual activities including walking for 1 hour, driving without increase in pain. Prior Functional Status Baseline Function- ADL's Independent Baseline Function- Mobility Independent Baseline Function- Gait indep, no device up to 1 hour, hills. 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 [id number]) OP-PT Subjective Patient Comments Patient Comments Increased pain yesterday and today, unsure why. PT-OP-F Manual Assessment Start: 01/17/18 15:17 Freq: Status: Active Protocol: Document 01/17/18 15:18 [facility] (Rec: 01/17/18 16:54 [facility] [id number]) Manual Assessments Soft Tissue Assessment Soft Tissue Mobility Assessment Palpable tightness hollie IT bands right greater than left PT-OP-G Mobility & Gait Start: 01/17/18 15:17 Freq: Status: Active Protocol: Document 01/17/18 15:18 [facility] (Rec: 01/17/18 16:54 [facility] [id number]) OP Mobility Evaluation Bed Mobility Rolling indep Supine to and from Sit indep OP Gait Assessment Gait Gait Assistance Required: Independent Assistive Devices Assistive Device None Orthotic/Prosthetic Devices or Brace: No Gait Deviations General Gait Pattern Antalgic Factors Limiting Gait Function Factors Limiting Gait Function Decreased Strength Pain Comments Gait Comments increased eversion right foot and ER right hip with gait. PT-OP-H Neuro Start: 01/17/18 15:17 Freq: Status: Active Protocol: Document 01/17/18 15:18 [facility] (Rec: 01/17/18 16:54 [facility] [id number]) Sensation Evaluation Gross Sensation Gross Sensation WNL PT-OP-J Posture/Palpation/Skin Start: 01/17/18 15:17 Freq: Status: Active Protocol: Document 01/17/18 15:18 [facility] (Rec: 01/17/18 16:54 [facility] [id number]) Posture Evaluation Position Standing Head/C-Spine Posture Forward Head T-Spine Posture Increased Kyphosis Shoulder Posture (R) Rounded (R) Elevated Hip Posture (R) Externally Rotated Foot Arch (L) Medium Arch (R) Medium Arch Palpation Assessment Location One Palpation Location lateral hip, greater trochanter Palpation Findings Tenderness PT-OP-K Range of Motion Start: 01/17/18 15:17 Freq: Status: Active Protocol: Document 01/17/18 15:18 [facility] (Rec: 01/17/18 16:54 [facility] [id number]) Lumbar Spine Range of Motion Lumbar Spine Active ROM Limitations Soft Tissue Tightness Comments mild decrease all motions Hip Goniometric Range of Motion Hip Measured in Degrees Left Hip ROM WFL No Flexion w/Knee Flexed 120 Straight Leg Raise 70 Extension 0 Internal Rotation 20 External Rotation 55 Right Hip ROM WFL No Testing Position Supine Flexion w/Knee Flexed 100 Straight Leg Raise 65 Extension 0 Internal Rotation 10 External Rotation 40 Hip ROM Limitations Hip ROM Limitations Soft Tissue Tightness Muscle Weakness Pain Knee Goniometric Range of Motion Knee ROM Limitations Comments hollie knee ROM WNL Ankle and Foot Goniometric Range of Motion Ankle and Foot ROM Limitations ROM Limitations Soft Tissue Tightness Comments hollie ankles limited in df: left 5, right 0 PT-OP-M Strength Start: 01/17/18 15:17 Freq: Status: Active Protocol: Document 01/17/18 15:18 [facility] (Rec: 01/17/18 16:54 [facility] [id number]) Trunk Strength Trunk Manual Muscle Testing Flexion 3+ Fair+ Extension 3 Fair Hip Strength Hip Manual Muscle Testing Left Flexion (L2) 4+ Good+ Extension (S1) 4- Good- Abduction 4- Good- External Rotation 4- Good- Internal Rotation 4+ Good+ Right Flexion (L2) 4- Good- Extension (S1) 3+ Fair+ Abduction 3+ Fair+ External Rotation 3+ Fair+ Internal Rotation 4 Good Knee Strength Knee Manual Muscle Testing Left Flexion (S2) 5 Normal Extension (L3) 5 Normal Right Flexion (S2) 4 Good Extension (L3) 4 Good Ankle/Foot Strength Ankle and Foot Manual Muscle Testing Left Dorsiflexion (L4) 5 Normal Plantarflexion (S1) 5 Normal Inversion 5 Normal Eversion (S1) 5 Normal Right Dorsiflexion (L4) 4- Good- Plantarflexion (S1) 4- Good- Inversion 4- Good- Eversion (S1) 4 Good PT-OP-Q Treatments Start: 01/17/18 15:17 Freq: Status: Active Protocol: Document 01/31/18 15:25 [facility] (Rec: 01/31/18 16:13 [facility] [id number]) Cardio Equipment Recumbent Stepper (Sci-Fit) Duration (Minutes) 5 Resistance 2 Seat Position 7 Bicycle (Upright) Duration (Minutes) 5 Resistance 3 Seat Position 3 Gym Equipment Shuttle Recovery Unilateral Squats Resistance 37 Shuttle Recovery Platform Stable Reps/Time 10x2 Bilateral Squats Resistance 62 Shuttle Recovery Platform Stable Reps/Time 10x2 Therapeutic Exercises Supine Exercises 2 Supine Exercise Name SKTC, piriformis stretch, ITband stretch Reps/Minutes 2x Sitting Exercises 1 Sitting Exercise Name HS curl Resistance 20 Reps/Minutes 2 x 10 Standing Exercises 3 Standing Exercise Name monster walks side, fwd, bck Resistance L1 band Comments sideways painful and discontinued 2 Standing Exercise Name HS stretch Equipment Used stair Reps/Minutes 2x 1 Standing Exercise Name HC stretch Equipment Used CAM Reps/Minutes 2x PT-OP-R Modalities Start: 01/17/18 15:17 Freq: Status: Active Protocol: Document 01/31/18 15:25 [facility] (Rec: 01/31/18 16:13 [facility] [id number]) Hot Pack/Cold Pack Treatment Hot Pack Location right ITband Patient Position Sidelying Treatment Duration (minutes) 15 Patient Tolerance Good Comments After treatment reported she prefers ice. Ultrasound Therapy Treatment Right Lateral Hip Treatment Duration (minutes) 8 Patient Position Sidelying Mode Setting Pulsed Duty Cycle 50% Intensity Setting (w/cm2) 1.2 Comments trochanteric bursa PT-OP-T Assessment and Plan Start: 01/17/18 15:17 Freq: Status: Active Protocol: Document 01/31/18 15:25 [facility] (Rec: 01/31/18 16:32 [facility] [id number]) Physical Therapy Assessment Goals Five Impairment Interrupted sleep due to pain Short Term Goal (STG) Instruct patient in correct, supported sleeping positions STG Duration 2 wks Senior Care Goal (LTG) Patient able to resume normal sleeping pattern without being limited by pain LTG Duration 12 wks Four Impairment Strength Short Term Goal (STG) Initiate LE strengthening including instructing in HEP STG Duration 2 wks Senior Care Goal (LTG) Patient to demonstrate 5/5 muscle strength hollie LE's and be independent with HEP for retirement fitness and pain management LTG Duration 12 wks Three Impairment ROM Short Term Goal (STG) Instruct patient in HEP for ROM/flexibility for right hip STG Duration 2 wks Timber Appraiser Goal (LTG) Patient to demonstrate WNL ROM right hip and be independent in HEP LTG Duration 12 wks Two Impairment Gait Short Term Goal (STG) Patient to decrease limp by 50 % STG Duration 6 wks Senior Care Goal (LTG) Patient able to ambulate without limp LTG Duration 12 wks One Impairment Activity tolerance Short Term Goal (STG) Patient able to increase her walking ability to 60 min level surfaces with minimal to no increase in pain STG Duration 6 wks Senior Care Goal (LTG) Patient to resume prior walks of 60 min including hills with minimal to no increase in pain LTG Duration 12 wks Assessment Summary Assessment Better tolerance for exercise bike vs recumbant stepper. Appears ITband may be contributing to pain more than piriformis. Trial heat today after ultrasound instead of ice, though after session patient reports she prefers ice. Physical Therapy Plan Frequency and Duration Frequency of Treatment 2x/Week Duration of Treatment 12 wks Plan of Care Start Date 01/17/18 Plan of Care End Date 04/19/18 Therapeutic Interventions Therapeutic Interventions Aquatic Therapy Gait Training Home Exercise Program Manual Therapy Neuromuscular Re-education Patient/Caregiver Education Self-Care/Home Management Soft Tissue Mobilization Therapeutic Activities Therapeutic Exercises Modalities Cold Pack/Ice Massage Electric Stimulation Hot Packs Iontophoresis Ultrasound Next Visit Focus/Plan Next Note Type Treatment Note Next Visit Plan Return to use of ice at end of session. Initiate manual treatment of ITband
--- NOTE | 2018-02-03 16:29 | PT.OTN ---
Current Diagnoses Trochanteric bursitis, right hip (02/03/18) Physical Therapy Treatment Note PT-OP-A Visit Information Start: 01/17/18 15:17 Freq: Status: Active Protocol: Document 02/03/18 14:34 SAK (Rec: 02/03/18 15:15 [facility] [id number]) Out-Patient Physical Therapy Visit Information Visit Information Visit Type Treatment Note Visit Start Time 14:30 Visit Stop Time 15:25 Total Visit Minutes 55 Visit Number 5 Number of CASING TIER Visits 0 Evaluation Information Evaluation Date 01/17/18 PT-OP-B Current Condition Start: 01/17/18 15:17 Freq: Status: Active Protocol: Document 01/17/18 15:18 SAK (Rec: 01/17/18 16:18 [facility] [id number]) Current Condition History of Current Condition History of Current Condition May 2017, right knee buckled almost fell experiencing severe pain, felt like bones rubbing together. After that states she just lived with the pain hoping it would go away. Had similar pain may 2015 eliminated with cortisone shot. Had shot again 08/18/17, no improvement . In constant fear of leg giving out again, difficulty driving and getting in and out of car, not taking walks as previously, feels like leg constantly wanting to do a charley horse, uncomfortable in bed. Prior PT for other issues including vertigo, not for this current pain. Pain varies 2-9/10. No significant N/T. Cervical spine surgery May 2012. Prior Treatments and Tests x-ray right hip and spine negative Treatment Goals Patient/Caregiver Goals Decrease pain, allow her to resume usual activities including walking for 1 hour, driving without increase in pain. Prior Functional Status Baseline Function- ADL's Independent Baseline Function- Mobility Independent Baseline Function- Gait indep, no device up to 1 hour, hills. 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 [id number]) OP-PT Subjective Patient Comments Patient Comments Worst pain is in afternoon/ evening; this has been going on a long time. Reports her has gotten her exercise bike set up, has not used yet. PT-OP-F Manual Assessment Start: 01/17/18 15:17 Freq: Status: Active Protocol: Document 01/17/18 15:18 [facility] (Rec: 01/17/18 16:54 [facility] [id number]) Manual Assessments Soft Tissue Assessment Soft Tissue Mobility Assessment Palpable tightness hollie IT bands right greater than left PT-OP-G Mobility & Gait Start: 01/17/18 15:17 Freq: Status: Active Protocol: Document 01/17/18 15:18 [facility] (Rec: 01/17/18 16:54 [facility] [id number]) OP Mobility Evaluation Bed Mobility Rolling indep Supine to and from Sit indep OP Gait Assessment Gait Gait Assistance Required: Independent Assistive Devices Assistive Device None Orthotic/Prosthetic Devices or Brace: No Gait Deviations General Gait Pattern Antalgic Factors Limiting Gait Function Factors Limiting Gait Function Decreased Strength Pain Comments Gait Comments increased eversion right foot and ER right hip with gait. PT-OP-H Neuro Start: 01/17/18 15:17 Freq: Status: Active Protocol: Document 01/17/18 15:18 [facility] (Rec: 01/17/18 16:54 [facility] [id number]) Sensation Evaluation Gross Sensation Gross Sensation WNL PT-OP-J Posture/Palpation/Skin Start: 01/17/18 15:17 Freq: Status: Active Protocol: Document 01/17/18 15:18 [facility] (Rec: 01/17/18 16:54 [facility] [id number]) Posture Evaluation Position Standing Head/C-Spine Posture Forward Head T-Spine Posture Increased Kyphosis Shoulder Posture (R) Rounded (R) Elevated Hip Posture (R) Externally Rotated Foot Arch (L) Medium Arch (R) Medium Arch Palpation Assessment Location One Palpation Location lateral hip, greater trochanter Palpation Findings Tenderness PT-OP-K Range of Motion Start: 01/17/18 15:17 Freq: Status: Active Protocol: Document 01/17/18 15:18 [facility] (Rec: 01/17/18 16:54 [facility] [id number]) Lumbar Spine Range of Motion Lumbar Spine Active ROM Limitations Soft Tissue Tightness Comments mild decrease all motions Hip Goniometric Range of Motion Hip Measured in Degrees Left Hip ROM WFL No Flexion w/Knee Flexed 120 Straight Leg Raise 70 Extension 0 Internal Rotation 20 External Rotation 55 Right Hip ROM WFL No Testing Position Supine Flexion w/Knee Flexed 100 Straight Leg Raise 65 Extension 0 Internal Rotation 10 External Rotation 40 Hip ROM Limitations Hip ROM Limitations Soft Tissue Tightness Muscle Weakness Pain Knee Goniometric Range of Motion Knee ROM Limitations Comments hollie knee ROM WNL Ankle and Foot Goniometric Range of Motion Ankle and Foot ROM Limitations ROM Limitations Soft Tissue Tightness Comments hollie ankles limited in df: left 5, right 0 PT-OP-M Strength Start: 01/17/18 15:17 Freq: Status: Active Protocol: Document 01/17/18 15:18 [facility] (Rec: 01/17/18 16:54 [facility] [id number]) Trunk Strength Trunk Manual Muscle Testing Flexion 3+ Fair+ Extension 3 Fair Hip Strength Hip Manual Muscle Testing Left Flexion (L2) 4+ Good+ Extension (S1) 4- Good- Abduction 4- Good- External Rotation 4- Good- Internal Rotation 4+ Good+ Right Flexion (L2) 4- Good- Extension (S1) 3+ Fair+ Abduction 3+ Fair+ External Rotation 3+ Fair+ Internal Rotation 4 Good Knee Strength Knee Manual Muscle Testing Left Flexion (S2) 5 Normal Extension (L3) 5 Normal Right Flexion (S2) 4 Good Extension (L3) 4 Good Ankle/Foot Strength Ankle and Foot Manual Muscle Testing Left Dorsiflexion (L4) 5 Normal Plantarflexion (S1) 5 Normal Inversion 5 Normal Eversion (S1) 5 Normal Right Dorsiflexion (L4) 4- Good- Plantarflexion (S1) 4- Good- Inversion 4- Good- Eversion (S1) 4 Good PT-OP-Q Treatments Start: 01/17/18 15:17 Freq: Status: Active Protocol: Document 02/03/18 14:34 [facility] (Rec: 02/03/18 15:15 [facility] [id number]) Cardio Equipment Bicycle (Upright) Duration (Minutes) 6 Resistance 3 Seat Position min Gym Equipment Shuttle Recovery Unilateral Squats Resistance 37 Shuttle Recovery Platform Stable Reps/Time 10x2 Bilateral Squats Resistance 62 Shuttle Recovery Platform Stable Reps/Time 10x2 Therapeutic Exercises Supine Exercises 5 Supine Exercise Name TA activation, TA with march Reps/Minutes 5x 6 Supine Exercise Name SLR Reps/Minutes 10x 4 Supine Exercise Name bridge Reps/Minutes 10 2 Supine Exercise Name SKTC, piriformis stretch, ITband stretch Reps/Minutes 2x Sitting Exercises 1 Sitting Exercise Name HS curl Resistance 20 Reps/Minutes 2 x 10 Standing Exercises 2 Standing Exercise Name HS stretch Equipment Used stair Reps/Minutes 2x PT-OP-R Modalities Start: 01/17/18 15:17 Freq: Status: Active Protocol: Document 02/03/18 14:34 [facility] (Rec: 02/03/18 15:15 [facility] [id number]) Hot Pack/Cold Pack Treatment Cold Pack Location right lateral hip Patient Position Hooklying Treatment Duration (minutes) 10 Ultrasound Therapy Treatment Right Lateral Hip Treatment Duration (minutes) 8 Patient Position Sidelying Mode Setting Pulsed Duty Cycle 50% Intensity Setting (w/cm2) 1.2 Comments trochanteric bursa PT-OP-T Assessment and Plan Start: 01/17/18 15:17 Freq: Status: Active Protocol: Document 02/03/18 14:34 [facility] (Rec: 02/03/18 16:29 [facility] [id number]) Physical Therapy Assessment Goals Five Impairment Interrupted sleep due to pain Short Term Goal (STG) Instruct patient in correct, supported sleeping positions STG Duration 2 wks Assisted Goal (LTG) Patient able to resume normal sleeping pattern without being limited by pain LTG Duration 12 wks Four Impairment Strength Short Term Goal (STG) Initiate LE strengthening including instructing in HEP STG Duration 2 wks Head Of Visual Merchandising Goal (LTG) Patient to demonstrate 5/5 muscle strength hollie LE's and be independent with HEP for fdc fitness and pain management LTG Duration 12 wks Three Impairment ROM Short Term Goal (STG) Instruct patient in HEP for ROM/flexibility for right hip STG Duration 2 wks Head Of Visual Merchandising Goal (LTG) Patient to demonstrate WNL ROM right hip and be independent in HEP LTG Duration 12 wks Two Impairment Gait Short Term Goal (STG) Patient to decrease limp by 50 % STG Duration 6 wks Assisted Goal (LTG) Patient able to ambulate without limp LTG Duration 12 wks One Impairment Activity tolerance Short Term Goal (STG) Patient able to increase her walking ability to 60 min level surfaces with minimal to no increase in pain STG Duration 6 wks Head Of Visual Merchandising Goal (LTG) Patient to resume prior walks of 60 min including hills with minimal to no increase in pain LTG Duration 12 wks Assessment Summary Assessment [employer] time on exercise bike, progression of ther ex today. Trial kinesiotape for pain management. Physical Therapy Plan Frequency and Duration Frequency of Treatment 2x/Week Duration of Treatment 12 wks Plan of Care Start Date 01/17/18 Plan of Care End Date 04/19/18 Therapeutic Interventions Therapeutic Interventions Aquatic Therapy Gait Training Home Exercise Program Manual Therapy Neuromuscular Re-education Patient/Caregiver Education Self-Care/Home Management Soft Tissue Mobilization Therapeutic Activities Therapeutic Exercises Modalities Cold Pack/Ice Massage Electric Stimulation Hot Packs Iontophoresis Ultrasound Next Visit Focus/Plan Next Note Type Treatment Note Next Visit Plan Manual treatment of IT band
--- NOTE | 2018-02-07 16:11 | PT.OTN ---
Current Diagnoses Trochanteric bursitis, right hip (02/07/18) Physical Therapy Treatment Note PT-OP-A Visit Information Start: 01/17/18 15:17 Freq: Status: Active Protocol: Document 02/07/18 15:17 [facility] (Rec: 02/07/18 15:46 [facility] [id number]) Out-Patient Physical Therapy Visit Information Visit Information Visit Type Treatment Note Visit Start Time 14:30 Visit Stop Time 15:25 Total Visit Minutes 53 Visit Number 6 Number of RRT Visits 0 Evaluation Information Evaluation Date 01/17/18 PT-OP-B Current Condition Start: 01/17/18 15:17 Freq: Status: Active Protocol: Document 01/17/18 15:18 [facility] (Rec: 01/17/18 16:18 [facility] [id number]) Current Condition History of Current Condition History of Current Condition May 2017, right knee buckled almost fell experiencing severe pain, felt like bones rubbing together. After that states she just lived with the pain hoping it would go away. Had similar pain may 2015 eliminated with cortisone shot. Had shot again 08/18/17, no improvement . In constant fear of leg giving out again, difficulty driving and getting in and out of car, not taking walks as previously, feels like leg constantly wanting to do a charley horse, uncomfortable in bed. Prior PT for other issues including vertigo, not for this current pain. Pain varies 2-9/10. No significant N/T. Cervical spine surgery May 2012. Prior Treatments and Tests x-ray right hip and spine negative Treatment Goals Patient/Caregiver Goals Decrease pain, allow her to resume usual activities including walking for 1 hour, driving without increase in pain. Prior Functional Status Baseline Function- ADL's Independent Baseline Function- Mobility Independent Baseline Function- Gait indep, no device up to 1 hour, hills. 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 Worse after a walk, forgot to ice. PT-OP-F Manual Assessment Start: 01/17/18 15:17 Freq: Status: Active Protocol: Document 01/17/18 15:18 [facility] (Rec: 01/17/18 16:54 [facility] [id number]) Manual Assessments Soft Tissue Assessment Soft Tissue Mobility Assessment Palpable tightness hollie IT bands right greater than left PT-OP-G Mobility & Gait Start: 01/17/18 15:17 Freq: Status: Active Protocol: Document 01/17/18 15:18 [facility] (Rec: 01/17/18 16:54 [facility] [id number]) OP Mobility Evaluation Bed Mobility Rolling indep Supine to and from Sit indep OP Gait Assessment Gait Gait Assistance Required: Independent Assistive Devices Assistive Device None Orthotic/Prosthetic Devices or Brace: No Gait Deviations General Gait Pattern Antalgic Factors Limiting Gait Function Factors Limiting Gait Function Decreased Strength Pain Comments Gait Comments increased eversion right foot and ER right hip with gait. PT-OP-H Neuro Start: 01/17/18 15:17 Freq: Status: Active Protocol: Document 01/17/18 15:18 [facility] (Rec: 01/17/18 16:54 [facility] [id number]) Sensation Evaluation Gross Sensation Gross Sensation WNL PT-OP-J Posture/Palpation/Skin Start: 01/17/18 15:17 Freq: Status: Active Protocol: Document 01/17/18 15:18 [facility] (Rec: 01/17/18 16:54 [facility] [id number]) Posture Evaluation Position Standing Head/C-Spine Posture Forward Head T-Spine Posture Increased Kyphosis Shoulder Posture (R) Rounded (R) Elevated Hip Posture (R) Externally Rotated Foot Arch (L) Medium Arch (R) Medium Arch Palpation Assessment Location One Palpation Location lateral hip, greater trochanter Palpation Findings Tenderness PT-OP-K Range of Motion Start: 01/17/18 15:17 Freq: Status: Active Protocol: Document 01/17/18 15:18 [facility] (Rec: 01/17/18 16:54 [facility] [id number]) Lumbar Spine Range of Motion Lumbar Spine Active ROM Limitations Soft Tissue Tightness Comments mild decrease all motions Hip Goniometric Range of Motion Hip Measured in Degrees Left Hip ROM WFL No Flexion w/Knee Flexed 120 Straight Leg Raise 70 Extension 0 Internal Rotation 20 External Rotation 55 Right Hip ROM WFL No Testing Position Supine Flexion w/Knee Flexed 100 Straight Leg Raise 65 Extension 0 Internal Rotation 10 External Rotation 40 Hip ROM Limitations Hip ROM Limitations Soft Tissue Tightness Muscle Weakness Pain Knee Goniometric Range of Motion Knee ROM Limitations Comments hollie knee ROM WNL Ankle and Foot Goniometric Range of Motion Ankle and Foot ROM Limitations ROM Limitations Soft Tissue Tightness Comments hollie ankles limited in df: left 5, right 0 PT-OP-M Strength Start: 01/17/18 15:17 Freq: Status: Active Protocol: Document 01/17/18 15:18 [facility] (Rec: 01/17/18 16:54 [facility] [id number]) Trunk Strength Trunk Manual Muscle Testing Flexion 3+ Fair+ Extension 3 Fair Hip Strength Hip Manual Muscle Testing Left Flexion (L2) 4+ Good+ Extension (S1) 4- Good- Abduction 4- Good- External Rotation 4- Good- Internal Rotation 4+ Good+ Right Flexion (L2) 4- Good- Extension (S1) 3+ Fair+ Abduction 3+ Fair+ External Rotation 3+ Fair+ Internal Rotation 4 Good Knee Strength Knee Manual Muscle Testing Left Flexion (S2) 5 Normal Extension (L3) 5 Normal Right Flexion (S2) 4 Good Extension (L3) 4 Good Ankle/Foot Strength Ankle and Foot Manual Muscle Testing Left Dorsiflexion (L4) 5 Normal Plantarflexion (S1) 5 Normal Inversion 5 Normal Eversion (S1) 5 Normal Right Dorsiflexion (L4) 4- Good- Plantarflexion (S1) 4- Good- Inversion 4- Good- Eversion (S1) 4 Good PT-OP-Q Treatments Start: 01/17/18 15:17 Freq: Status: Active Protocol: Document 02/07/18 15:17 [facility] (Rec: 02/07/18 15:46 [facility] [id number]) Cardio Equipment Bicycle (Upright) Duration (Minutes) 8 Resistance 3 Seat Position min Gym Equipment Shuttle Recovery Unilateral Squats Resistance 37 Shuttle Recovery Platform Stable Reps/Time 15x2 Bilateral Squats Resistance 62 Shuttle Recovery Platform Stable Reps/Time 15x2 Therapeutic Exercises Supine Exercises 2 Supine Exercise Name SKTC, piriformis stretch, ITband stretch Reps/Minutes 2x 1 Supine Exercise Name gluteal set, pillow squeeze Reps/Minutes 10x Sitting Exercises 1 Sitting Exercise Name HS curl Resistance 20 Reps/Minutes 2 x 10 Standing Exercises 3 Standing Exercise Name monster walks fwd, bck Resistance L1 band 2 Standing Exercise Name HS stretch Equipment Used stair Reps/Minutes 2x 1 Standing Exercise Name HC stretch Equipment Used CAM Reps/Minutes 2x Manual Therapy Treatment Taping greater trochanter Treatment Focus space correction Type of Tape Kinesio Tape Comments star pattern PT-OP-R Modalities Start: 01/17/18 15:17 Freq: Status: Active Protocol: Document 02/07/18 15:17 [facility] (Rec: 02/07/18 15:46 [facility] [id number]) Hot Pack/Cold Pack Treatment Cold Pack Location right lateral hip Patient Position Hooklying Treatment Duration (minutes) 10 Ultrasound Therapy Treatment Right Lateral Hip Treatment Duration (minutes) 8 Patient Position Sidelying Mode Setting Pulsed Duty Cycle 50% Intensity Setting (w/cm2) 1.2 Comments trochanteric bursa PT-OP-T Assessment and Plan Start: 01/17/18 15:17 Freq: Status: Active Protocol: Document 02/07/18 15:17 [facility] (Rec: 02/07/18 15:46 [facility] [id number]) Physical Therapy Assessment Goals Five Impairment Interrupted sleep due to pain Short Term Goal (STG) Instruct patient in correct, supported sleeping positions STG Duration 2 wks Senior Care Goal (LTG) Patient able to resume normal sleeping pattern without being limited by pain LTG Duration 12 wks Four Impairment Strength Short Term Goal (STG) Initiate LE strengthening including instructing in HEP STG Duration 2 wks Senior Care Goal (LTG) Patient to demonstrate 5/5 muscle strength hollie LE's and be independent with 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 management LTG Duration 12 wks Three Impairment ROM Short Term Goal (STG) Instruct patient in HEP for ROM/flexibility for right hip STG Duration 2 wks Senior Care Goal (LTG) Patient to demonstrate WNL ROM right hip and be independent in HEP LTG Duration 12 wks Two Impairment Gait Short Term Goal (STG) Patient to decrease limp by 50 % STG Duration 6 wks Senior Care Goal (LTG) Patient able to ambulate without limp LTG Duration 12 wks One Impairment Activity tolerance Short Term Goal (STG) Patient able to increase her walking ability to 60 min level surfaces with minimal to no increase in pain STG Duration 6 wks Senior Care Goal (LTG) Patient to resume prior walks of 60 min including hills with minimal to no increase in pain LTG Duration 12 wks Assessment Summary Assessment Good pain relief last session. Patient continues to need reminders to use ice at home afer activity. [place] kinesiotape helpful Physical Therapy Plan Frequency and Duration Frequency of Treatment 2x/Week Duration of Treatment 12 wks Plan of Care Start Date 01/17/18 Plan of Care End Date 04/19/18 Therapeutic Interventions Therapeutic Interventions Aquatic Therapy Gait Training Home Exercise Program Manual Therapy Neuromuscular Re-education Patient/Caregiver Education Self-Care/Home Management Soft Tissue Mobilization Therapeutic Activities Therapeutic Exercises Modalities Cold Pack/Ice Massage Electric Stimulation Hot Packs Iontophoresis Ultrasound Next Visit Focus/Plan Next Note Type Treatment Note Next Visit Plan progress ther ex as tolerated, continue pain management modalities and manual therapy as indicated.
--- NOTE | 2018-02-10 12:00 | PT.OTN ---
Current Diagnoses Trochanteric bursitis, right hip (02/10/18) Physical Therapy Treatment Note PT-OP-A Visit Information Start: 01/17/18 15:17 Freq: Status: Active Protocol: Document 02/10/18 12:00 [facility] (Rec: 02/10/18 13:28 [facility] [id number]) Out-Patient Physical Therapy Visit Information Visit Information Visit Type Treatment Note Visit Start Time 11:16 Visit Stop Time 12:00 Total Visit Minutes 44 Visit Number 7 Number of LEAD BI DEVELOPER Visits 0 Evaluation Information Evaluation Date 01/17/18 PT-OP-B Current Condition Start: 01/17/18 15:17 Freq: Status: Active Protocol: Document 01/17/18 15:18 [facility] (Rec: 01/17/18 16:18 [facility] [id number]) Current Condition History of Current Condition History of Current Condition May 2017, right knee buckled almost fell experiencing severe pain, felt like bones rubbing together. After that states she just lived with the pain hoping it would go away. Had similar pain may 2015 eliminated with cortisone shot. Had shot again 08/18/17, no improvement . In constant fear of leg giving out again, difficulty driving and getting in and out of car, not taking walks as previously, feels like leg constantly wanting to do a charley horse, uncomfortable in bed. Prior PT for other issues including vertigo, not for this current pain. Pain varies 2-9/10. No significant N/T. Cervical spine surgery May 2012. Prior Treatments and Tests x-ray right hip and spine negative Treatment Goals Patient/Caregiver Goals Decrease pain, allow her to resume usual activities including walking for 1 hour, driving without increase in pain. Prior Functional Status Baseline Function- ADL's Independent Baseline Function- Mobility Independent Baseline Function- Gait indep, no device up to 1 hour, hills. 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 PT-OP-F Manual Assessment Start: 01/17/18 15:17 Freq: Status: Active Protocol: Document 01/17/18 15:18 [facility] (Rec: 01/17/18 16:54 [facility] [id number]) Manual Assessments Soft Tissue Assessment Soft Tissue Mobility Assessment Palpable tightness hollie IT bands right greater than left PT-OP-G Mobility & Gait Start: 01/17/18 15:17 Freq: Status: Active Protocol: Document 01/17/18 15:18 [facility] (Rec: 01/17/18 16:54 [facility] [id number]) OP Mobility Evaluation Bed Mobility Rolling indep Supine to and from Sit indep OP Gait Assessment Gait Gait Assistance Required: Independent Assistive Devices Assistive Device None Orthotic/Prosthetic Devices or Brace: No Gait Deviations General Gait Pattern Antalgic Factors Limiting Gait Function Factors Limiting Gait Function Decreased Strength Pain Comments Gait Comments increased eversion right foot and ER right hip with gait. PT-OP-H Neuro Start: 01/17/18 15:17 Freq: Status: Active Protocol: Document 01/17/18 15:18 [facility] (Rec: 01/17/18 16:54 [facility] [id number]) Sensation Evaluation Gross Sensation Gross Sensation WNL PT-OP-J Posture/Palpation/Skin Start: 01/17/18 15:17 Freq: Status: Active Protocol: Document 01/17/18 15:18 [facility] (Rec: 01/17/18 16:54 [facility] [id number]) Posture Evaluation Position Standing Head/C-Spine Posture Forward Head T-Spine Posture Increased Kyphosis Shoulder Posture (R) Rounded (R) Elevated Hip Posture (R) Externally Rotated Foot Arch (L) Medium Arch (R) Medium Arch Palpation Assessment Location One Palpation Location lateral hip, greater trochanter Palpation Findings Tenderness PT-OP-K Range of Motion Start: 01/17/18 15:17 Freq: Status: Active Protocol: Document 01/17/18 15:18 [facility] (Rec: 01/17/18 16:54 [facility] [id number]) Lumbar Spine Range of Motion Lumbar Spine Active ROM Limitations Soft Tissue Tightness Comments mild decrease all motions Hip Goniometric Range of Motion Hip Measured in Degrees Left Hip ROM WFL No Flexion w/Knee Flexed 120 Straight Leg Raise 70 Extension 0 Internal Rotation 20 External Rotation 55 Right Hip ROM WFL No Testing Position Supine Flexion w/Knee Flexed 100 Straight Leg Raise 65 Extension 0 Internal Rotation 10 External Rotation 40 Hip ROM Limitations Hip ROM Limitations Soft Tissue Tightness Muscle Weakness Pain Knee Goniometric Range of Motion Knee ROM Limitations Comments hollie knee ROM WNL Ankle and Foot Goniometric Range of Motion Ankle and Foot ROM Limitations ROM Limitations Soft Tissue Tightness Comments hollie ankles limited in df: left 5, right 0 PT-OP-M Strength Start: 01/17/18 15:17 Freq: Status: Active Protocol: Document 01/17/18 15:18 [facility] (Rec: 01/17/18 16:54 [facility] [id number]) Trunk Strength Trunk Manual Muscle Testing Flexion 3+ Fair+ Extension 3 Fair Hip Strength Hip Manual Muscle Testing Left Flexion (L2) 4+ Good+ Extension (S1) 4- Good- Abduction 4- Good- External Rotation 4- Good- Internal Rotation 4+ Good+ Right Flexion (L2) 4- Good- Extension (S1) 3+ Fair+ Abduction 3+ Fair+ External Rotation 3+ Fair+ Internal Rotation 4 Good Knee Strength Knee Manual Muscle Testing Left Flexion (S2) 5 Normal Extension (L3) 5 Normal Right Flexion (S2) 4 Good Extension (L3) 4 Good Ankle/Foot Strength Ankle and Foot Manual Muscle Testing Left Dorsiflexion (L4) 5 Normal Plantarflexion (S1) 5 Normal Inversion 5 Normal Eversion (S1) 5 Normal Right Dorsiflexion (L4) 4- Good- Plantarflexion (S1) 4- Good- Inversion 4- Good- Eversion (S1) 4 Good PT-OP-Q Treatments Start: 01/17/18 15:17 Freq: Status: Active Protocol: Document 02/10/18 12:00 [facility] (Rec: 02/10/18 13:28 [facility] [id number]) Cardio Equipment Bicycle (Upright) Duration (Minutes) 8 Resistance 3 Seat Position min Gym Equipment Shuttle Recovery Unilateral Squats Resistance 37 Shuttle Recovery Platform Stable Reps/Time 15x2 Bilateral Squats Resistance 50 Shuttle Recovery Platform Stable Reps/Time 15x2 Therapeutic Exercises Supine Exercises 2 Supine Exercise Name SKTC, piriformis stretch, ITband stretch Reps/Minutes 2x Standing Exercises 2 Standing Exercise Name HS stretch Equipment Used stair Reps/Minutes 2x 1 Standing Exercise Name HC stretch Equipment Used CAM Reps/Minutes 2x Manual Therapy Treatment Taping greater trochanter Treatment Focus space correction Type of Tape Kinesio Tape Comments star pattern PT-OP-R Modalities Start: 01/17/18 15:17 Freq: Status: Active Protocol: Document 02/10/18 12:00 [facility] (Rec: 02/10/18 13:28 [facility] [id number]) Ultrasound Therapy Treatment Right Lateral Hip Treatment Duration (minutes) 8 Patient Position Sidelying Mode Setting Pulsed Duty Cycle 50% Intensity Setting (w/cm2) 1.2 Comments trochanteric bursa PT-OP-T Assessment and Plan Start: 01/17/18 15:17 Freq: Status: Active Protocol: Document 02/10/18 12:00 [facility] (Rec: 02/10/18 13:28 [facility] [id number]) Physical Therapy Assessment Assessment Summary Assessment Pt with less antalgic gait with taping and after ultrasound. She tolerated less resistance on leg press today , due to weakness and not pain . Physical Therapy Plan Frequency and Duration Frequency of Treatment 2x/Week Duration of Treatment 12 wks Plan of Care Start Date 01/17/18 Plan of Care End Date 04/19/18 Next Visit Focus/Plan Next Note Type Treatment Note Next Visit Plan cont. hip strengthening and management of pain and tension with modalities and stretching.
--- NOTE | 2018-02-23 13:46 | PT.OPDS ---
Current Diagnoses Trochanteric bursitis, right hip (02/10/18) Provider Visit Care Team Role Provider Type Zackary Soni MD Family Provider Physician Primary Care Provider Specialty: Family Practice Address: [address] [place] [address], [id number] Email: [email or web address] Brayden Hooks MD Attending Provider Physician Specialty: Orthopedic Surgery Address: [address] [place] [address], [id number] Email: [email or web address] Visit Number Visit Number 7 Discharge Summary PT-OP-B Current Condition Start: 01/17/18 15:17 Freq: Status: Active Protocol: Document 01/17/18 15:18 SAK (Rec: 01/17/18 16:18 SAK [id number]) Current Condition History of Current Condition History of Current Condition May 2017, right knee buckled almost fell experiencing severe pain, felt like bones rubbing together. After that states she just lived with the pain hoping it would go away. Had similar pain may 2015 eliminated with cortisone shot. Had shot again 08/18/17, no improvement . In constant fear of leg giving out again, difficulty driving and getting in and out of car, not taking walks as previously, feels like leg constantly wanting to do a charley horse, uncomfortable in bed. Prior PT for other issues including vertigo, not for this current pain. Pain varies 2-9/10. No significant N/T. Cervical spine surgery May 2012. Prior Treatments and Tests x-ray right hip and spine negative Treatment Goals Patient/Caregiver Goals Decrease pain, allow her to resume usual activities including walking for 1 hour, driving without increase in pain. Prior Functional Status Baseline Function- ADL's Independent Baseline Function- Mobility Independent Baseline Function- Gait indep, no device up to 1 hour, hills. 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 PT-OP-F Manual Assessment Start: 01/17/18 15:17 Freq: Status: Active Protocol: Document 01/17/18 15:18 SAK (Rec: 01/17/18 16:54 [facility] [id number]) Manual Assessments Soft Tissue Assessment Soft Tissue Mobility Assessment Palpable tightness hollie IT bands right greater than left PT-OP-G Mobility & Gait Start: 01/17/18 15:17 Freq: Status: Active Protocol: Document 01/17/18 15:18 SAK (Rec: 01/17/18 16:54 [facility] [id number]) OP Mobility Evaluation Bed Mobility Rolling indep Supine to and from Sit indep OP Gait Assessment Gait Gait Assistance Required: Independent Assistive Devices Assistive Device None Orthotic/Prosthetic Devices or Brace: No Gait Deviations General Gait Pattern Antalgic Factors Limiting Gait Function Factors Limiting Gait Function Decreased Strength Pain Comments Gait Comments increased eversion right foot and ER right hip with gait. PT-OP-H Neuro Start: 01/17/18 15:17 Freq: Status: Active Protocol: Document 01/17/18 15:18 [facility] (Rec: 01/17/18 16:54 [facility] [id number]) Sensation Evaluation Gross Sensation Gross Sensation WNL PT-OP-J Posture/Palpation/Skin Start: 01/17/18 15:17 Freq: Status: Active Protocol: Document 01/17/18 15:18 [facility] (Rec: 01/17/18 16:54 [facility] [id number]) Posture Evaluation Position Standing Head/C-Spine Posture Forward Head T-Spine Posture Increased Kyphosis Shoulder Posture (R) Rounded (R) Elevated Hip Posture (R) Externally Rotated Foot Arch (L) Medium Arch (R) Medium Arch Palpation Assessment Location One Palpation Location lateral hip, greater trochanter Palpation Findings Tenderness PT-OP-K Range of Motion Start: 01/17/18 15:17 Freq: Status: Active Protocol: Document 01/17/18 15:18 [facility] (Rec: 01/17/18 16:54 [facility] [id number]) Lumbar Spine Range of Motion Lumbar Spine Active ROM Limitations Soft Tissue Tightness Comments mild decrease all motions Hip Goniometric Range of Motion Hip Measured in Degrees Left Hip ROM WFL No Flexion w/Knee Flexed 120 Straight Leg Raise 70 Extension 0 Internal Rotation 20 External Rotation 55 Right Hip ROM WFL No Testing Position Supine Flexion w/Knee Flexed 100 Straight Leg Raise 65 Extension 0 Internal Rotation 10 External Rotation 40 Hip ROM Limitations Hip ROM Limitations Soft Tissue Tightness Muscle Weakness Pain Knee Goniometric Range of Motion Knee ROM Limitations Comments hollie knee ROM WNL Ankle and Foot Goniometric Range of Motion Ankle and Foot ROM Limitations ROM Limitations Soft Tissue Tightness Comments hollie ankles limited in df: left 5, right 0 PT-OP-M Strength Start: 01/17/18 15:17 Freq: Status: Active Protocol: Document 01/17/18 15:18 [facility] (Rec: 01/17/18 16:54 [facility] [id number]) Trunk Strength Trunk Manual Muscle Testing Flexion 3+ Fair+ Extension 3 Fair Hip Strength Hip Manual Muscle Testing Left Flexion (L2) 4+ Good+ Extension (S1) 4- Good- Abduction 4- Good- External Rotation 4- Good- Internal Rotation 4+ Good+ Right Flexion (L2) 4- Good- Extension (S1) 3+ Fair+ Abduction 3+ Fair+ External Rotation 3+ Fair+ Internal Rotation 4 Good Knee Strength Knee Manual Muscle Testing Left Flexion (S2) 5 Normal Extension (L3) 5 Normal Right Flexion (S2) 4 Good Extension (L3) 4 Good Ankle/Foot Strength Ankle and Foot Manual Muscle Testing Left Dorsiflexion (L4) 5 Normal Plantarflexion (S1) 5 Normal Inversion 5 Normal Eversion (S1) 5 Normal Right Dorsiflexion (L4) 4- Good- Plantarflexion (S1) 4- Good- Inversion 4- Good- Eversion (S1) 4 Good PT-OP-T Assessment and Plan Start: 01/17/18 15:17 Freq: Status: Active Protocol: Document 02/23/18 13:43 [facility] (Rec: 02/23/18 13:45 [facility] [id number]) Physical Therapy Assessment Assessment Summary Assessment Patient left message to discharge her; feels better for short time after PT, then pain returns. No long-term benefit felt from PT, requests discharge. No discharge assessment due to phone call request. Physical Therapy Plan Discharge Physical Therapy Discharge Reasons Patient Request Discharge Comments as above
== END 2018-05-09 16:28 ==
LOC: PHYS 11:15
PROVIDERS: Family Provider Family Medicine; PCP Family Medicine; Visit Provider Orthopaedic Surgery
DX: M70.61 Trochanteric bursitis, right hip (principal)
CPT/HCPCS: 97010; 97035; 97110; 97162; 97535

== ENCOUNTER 2018-05-31 07:06 | Day surgery (SDC) | payer OTHER, SELFPAY ==
[2018-05-31] MEDS: PROPARACAINE 0.5% OPHTH SOL 2 DROPS EYE-OP (07:38)
[2018-05-31 07:42] VITALS: BP 108/62; PULSE 84; RESP 16; TEMP 36.2; O2SAT 100; BMI 27.1
[2018-05-31] MEDS: CATARACT EYE COMPOUND (10 DROPS/SYRINGE) 3 DROPS EYE-OP (07:52)
--- NOTE | 2018-05-31 08:42 | PM.PREOP ---
Pre-operative Note Interval Note History & Physical reviewed/Exam performed by Physician: No Changes to H&P: No
--- NOTE | 2018-05-31 08:44 | P.OP_ITS ---
Operative Date/Time/Diagnoses Pre-op diagnosis: Nuclear cataract right eye Procedure & Clinicians Procedure: Cataract Surgery Same procedure as scheduled: Yes Surgeon: Gerald Allison Anesthesia Type: MAC +/- and Sedation Operative Notes Procedure in detail: Patient brought to the operating suite. Tetracaine drops placed in the right eye. Patient was prepped and draped in sterile manner. Wire lid speculum was placed in the eye. Betadine drops were placed on the eye. This was irrigated. Lidocaine jelly was placed on the eye. A paracentesis port was created with a side-port blade. 0.1 mL 1% preservative free lidocaine was injected into the anterior chamber. The anterior chamber was deepened with viscoelastic. 2.6 mm keratome was used to create a temporal clear corneal incision. Cystotome and Utrata forceps were used to create continuous tear capsulorrhexis. Balanced salt solution was used to hydro dissect the nucleus. The phacoemulsification handpiece was inserted and the nucleus was removed using the stop and chop technique. The irrigation aspiration handpiece was inserted and the remaining cortex was removed. Anterior chamber was deepened with viscoelastic. An Garrido ZCB00 intraocular lens with a power of 23.0 was injected into the capsular bag. Irrigation aspiration handpiece was inserted and the remaining viscoelastic was removed. Incision was hydrated with balanced salt solution and found to be leak free with pressure with Weck- Leana sponges. 0.1 mL Vigamox injected anterior chamber. 0.3 mL Kenalog 10 mg was injected subconjunctivally. Lid speculum was removed. The patient left the operating room in excellent condition. Complications: none Condition: stable Disposition: same day surgery
[2018-05-31] MEDS: MOXIFLOXACIN OPHTH DROPS 3 ML BOTTLE 2 DROPS INJ (09:19)
[2018-05-31] MEDS: PHENYLEPHRINE/LIDOCAINE VIAL (OR) 0.2 ML EYE-OP (09:19)
[2018-05-31] MEDS: CHONDROIDTIN/SOD HYALURONATE 1.05 ML SYRINGE INTRAOCULA (09:20)
[2018-05-31] MEDS: LIDOCAINE JELLY 2% 5 ML 1 APPLIC TOP (09:20)
[2018-05-31] MEDS: TRIAMCINOLONE 50 MG/5 ML VIAL INJ (09:20)
[2018-05-31] MEDS: TETRACAINE 0.5% OPHTH DROPS 15 ML 2 DROPS EYE-RIGHT (09:21)
[2018-05-31] MEDS: BALANCED SALT IRRIG SOLN NO.2 500 ML, EPINEPHrine 1 MG IRR (09:21)
[2018-05-31 09:34] VITALS: BP 110/67; PULSE 75; RESP 15; TEMP 36; O2SAT 99
== END 2018-05-31 09:46 ==
LOC: OR 07:06
PROVIDERS: PCP Student in an Organized Health Care Education/Training Program; Visit Provider Ophthalmology
DX: H25.11 Age-related nuclear cataract, right eye (principal)
CPT/HCPCS: J0171; J2250; J3010; J3301

== ENCOUNTER 2018-06-14 08:01 | Day surgery (SDC) | payer OTHER, SELFPAY ==
[2018-06-14 09:12] VITALS: BMI 27.1
[2018-06-14 09:20] VITALS: BP 116/70; PULSE 86; RESP 16; TEMP 36.4; O2SAT 97
[2018-06-14] MEDS: PROPARACAINE 0.5% OPHTH SOL 2 DROPS EYE-OP (09:21)
[2018-06-14] MEDS: CATARACT EYE COMPOUND (10 DROPS/SYRINGE) 3 DROPS EYE-OP (09:23)
--- NOTE | 2018-06-14 10:05 | PM.PREOP ---
Pre-operative Note Interval Note History & Physical reviewed/Exam performed by Physician: No Changes to H&P: No
--- NOTE | 2018-06-14 10:06 | P.OP_ITS ---
Operative Date/Time/Diagnoses Pre-op diagnosis: Nuclear Cataract Left eye Post-op diagnosis: same Procedure & Clinicians Surgeon: Gerald Allison Anesthesia Type: MAC +/- and Sedation Operative Notes Procedure in detail: Patient brought to the operating suite. Tetracaine drops placed in the left eye. Patient was prepped and draped in sterile manner. Wire lid speculum was placed in the eye. Betadine drops were placed on the eye. This was irrigated. Lidocaine jelly was placed on the eye. A paracentesis port was created with a side-port blade. 0.1 mL 1% preservative free lidocaine was injected into the anterior chamber. The anterior chamber was deepened with viscoelastic. 2.6 mm keratome was used to create a temporal clear corneal incision. Cystotome and Utrata forceps were used to create continuous tear capsulorrhexis. Balanced salt solution was used to hydro dissect the nucleus. The phacoemulsification handpiece was inserted and the nucleus was removed using the stop and chop technique. The irrigation aspiration handpiece was inserted and the remaining cortex was removed. Anterior chamber was deepened with viscoelastic. An Garrido ZCB00 intraocular lens with a power of 24.0 was injected into the capsular bag. Irrigation aspiration handpiece was inserted and the remaining viscoelastic was removed. Incision was hydrated with balanced salt solution and found to be leak free with pressure with Weck- Leana sponges. 0.1 mL Vigamox injected anterior chamber. 0.3 mL Kenalog 10 mg was injected subconjunctivally. Lid speculum was removed. The patient left the operating room in excellent condition. Complications: none Condition: stable Disposition: same day surgery
[2018-06-14] MEDS: MOXIFLOXACIN OPHTH DROPS 3 ML BOTTLE 2 DROPS INJ (10:16)
[2018-06-14] MEDS: TRIAMCINOLONE 50 MG/5 ML VIAL INJ (10:17)
[2018-06-14] MEDS: CHONDROIDTIN/SOD HYALURONATE 1.05 ML SYRINGE INTRAOCULA (10:17)
[2018-06-14] MEDS: LIDOCAINE JELLY 2% 5 ML 1 APPLIC TOP (10:17)
[2018-06-14] MEDS: BALANCED SALT IRRIG SOLN NO.2 500 ML, EPINEPHrine 1 MG IRR (10:18)
[2018-06-14] MEDS: TETRACAINE 0.5% OPHTH DROPS 4 ML 2 DROPS EYE-OP (10:18)
[2018-06-14] MEDS: PHENYLEPHRINE/LIDOCAINE VIAL (OR) 0.2 ML EYE-OP (10:19)
[2018-06-14 10:35] VITALS: BP 112/79; PULSE 69; RESP 16; TEMP 36.1; O2SAT 98
== END 2018-06-14 10:42 | disposition home or self-care (01) ==
LOC: OR 08:03
PROVIDERS: PCP Student in an Organized Health Care Education/Training Program; Visit Provider Ophthalmology
DX: H25.12 Age-related nuclear cataract, left eye (principal); R42 Dizziness and giddiness; G43.909 Migraine, unspecified, not intractable, without status migrainosus
CPT/HCPCS: J0171; J2250; J3010; J3301

== ENCOUNTER → 2018-10-27 08:46 | Outpatient (CLI) | payer OTHER, SELFPAY ==
[2018-10-27 09:47] LABS: BUN Creatinine Ratio 28.8 (6-22); Blood Urea Nitrogen 23 mg/dL (7-17); Calcium 9.5 mg/dL (8.4-10.2); Carbon Dioxide 32 mmol/L (22-32); Chloride 101 mmol/L (98-107); Cholesterol 222 mg/dL (140-199); Estimated Glomerular Filt Rate > 60.0 mL/min (>60); Glucose 85 mg/dL (80-110); HDL Cholesterol 48 mg/dL (40-60); HEMOLYSIS < 15 (0-50); LDL Cholesterol Calculated 122 mg/dL (<100); Potassium 4.2 mmol/L (3.4-5.1); Sodium 140 mmol/L (137-145); Triglycerides 260 mg/dL (35-150)
== END ==
PROVIDERS: PCP Student in an Organized Health Care Education/Training Program; Visit Provider Student in an Organized Health Care Education/Training Program
DX: M85.88 Other specified disorders of bone density and structure, other site (principal); Z78.0 Asymptomatic menopausal state; E78.2 Mixed hyperlipidemia; Z98.1 Arthrodesis status; Z82.62 Family history of osteoporosis; Z92.29 Personal history of other drug therapy
CPT/HCPCS: 36415; 77080; 80048; 80061

== ENCOUNTER → 2018-12-01 10:22 | Outpatient (CLI) | payer OTHER, SELFPAY ==
--- NOTE | 2018-12-01 | DI.MG.S_ITS ---
BILATERAL DIGITAL SCREENING MAMMOGRAM 3D/2D WITH CAD: 12/01/2018 CLINICAL: Routine screening. Comparison is made to exams dated: 11/09/2017 mammogram, 11/04/2016 mammogram, and 11/04/2015 mammogram - [facility]. There are scattered fibroglandular elements in both breasts. Current study was also evaluated with a Computer Aided Detection (CAD) system. No significant masses, calcifications, or other findings are seen in either breast. There has been no significant interval change. IMPRESSION: NEGATIVE There is no mammographic evidence of malignancy. A 1 year screening mammogram is recommended. This exam was interpreted at Station ID: [id number]. NOTE: For mammograms, a report in lay terms will be sent to the patient. Approximately 15% of breast malignancies will not be visualized mammographically. In the management of a palpable breast mass, a negative mammogram must not discourage biopsy of a clinically suspicious lesion. Electronically Signed By: Ryley damon/maricarmen:12/01/2018 11:16:44 letter sent: Normal Exam ACR BI-RADS Category 1: Negative 3341F
== END ==
PROVIDERS: PCP Student in an Organized Health Care Education/Training Program; Visit Provider Student in an Organized Health Care Education/Training Program
DX: Z12.31 Encounter for screening mammogram for malignant neoplasm of breast (principal)
CPT/HCPCS: 77063; 77067

== ENCOUNTER → 2020-01-02 11:14 | Outpatient (CLI) | payer MEDICARE, SELFPAY ==
--- NOTE | 2020-01-02 | DI.MG.S_ITS ---
BILATERAL DIGITAL SCREENING MAMMOGRAM 3D/2D WITH CAD: 01/02/2020 CLINICAL: Routine screening. Comparison is made to exams dated: 12/01/2018 mammogram, 11/09/2017 mammogram, and 11/04/2016 mammogram - [facility]. There are scattered fibroglandular elements in both breasts. Current study was also evaluated with a Computer Aided Detection (CAD) system. No significant masses, calcifications, or other findings are seen in either breast. There has been no significant interval change. IMPRESSION: NEGATIVE There is no mammographic evidence of malignancy. A 1 year screening mammogram is recommended. This exam was interpreted at Station ID: [id number]. NOTE: For mammograms, a report in lay terms will be sent to the patient. Approximately 15% of breast malignancies will not be visualized mammographically. In the management of a palpable breast mass, a negative mammogram must not discourage biopsy of a clinically suspicious lesion. Electronically Signed By: Khalif norman/maricarmen:01/02/2020 14:07:42 letter sent: Normal Exam ACR BI-RADS Category 1: Negative 3341F
== END ==
PROVIDERS: PCP Student in an Organized Health Care Education/Training Program; Referring Provider Student in an Organized Health Care Education/Training Program; Visit Provider Student in an Organized Health Care Education/Training Program
DX: Z12.31 Encounter for screening mammogram for malignant neoplasm of breast (principal)
CPT/HCPCS: 77063; 77067

== ENCOUNTER → 2020-01-18 10:50 | Outpatient (CLI) | payer MEDICARE, SELFPAY ==
[2020-01-18 11:51] LABS: Add Manual Diff / Slide Review NO; Basophils Absolute Auto 0 /uL (0-100); Basophils Percent Auto 0.3 % (0-2); Eosinophils Absolute Auto 200 /uL (0-450); Eosinophils Percent Auto 3.5 % (2-4); Hematocrit 39.1 % (36-46); Hemoglobin 13.1 g/dL (12.0-16.0); Lymphocytes Absolute Auto 2200 /uL (1100-4500); Lymphocytes Percent Auto 43.3 % (25-40); Mean Corpuscular HGB Conc 33.6 % (30-36); Mean Corpuscular Hemoglobin 31.2 PG (26-34); Monocytes Absolute Auto 300 /uL (0-900); Monocytes Percent Auto 6.1 % (3-14); Neutrophils Absolute Auto 2400 /uL (1500-7000); Neutrophils Percent Auto 46.8 % (50-75); Platelet Count 176 X10^3/uL (150-400); Red Cell Distribution Width 12.9 % (11.6-14.8); White Blood Cell Count 5.1 X10^3/uL (4.5-11.0)
[2020-01-18 12:05] LABS: Erythrocyte Sedimentation Rate 21 MM/HR (0-20)
[2020-01-18 12:19] LABS: Blood Urea Nitrogen 19 mg/dL (7-17); Calcium 9.9 mg/dL (8.4-10.2); Carbon Dioxide 29 mmol/L (22-32); Chloride 101 mmol/L (98-107); Estimated Glomerular Filt Rate > 60.0 mL/min (>60); Glucose 77 mg/dL (80-110); HEMOLYSIS < 15 (0-50); Potassium 4.2 mmol/L (3.4-5.1); Sodium 137 mmol/L (137-145)
[2020-01-18 12:49] LABS: TSH w/ Reflex to FT4 1.53 uIU/mL (0.47-4.68)
[2020-01-18 13:13] LABS: Vitamin B12 540 pg/mL (239-931)
== END ==
PROVIDERS: PCP Student in an Organized Health Care Education/Training Program; Referring Provider Student in an Organized Health Care Education/Training Program; Visit Provider Student in an Organized Health Care Education/Training Program
DX: R53.82 Chronic fatigue, unspecified (principal); G47.19 Other hypersomnia
CPT/HCPCS: 36415; 80048; 82607; 84443; 85025; 85651

== ENCOUNTER → 2020-03-03 08:55 | Outpatient (CLI) | payer MEDICARE, SELFPAY ==
[2020-03-04 17:00] LABS: COVID19 Sendout Not Detected (Not Detect)
== END ==
PROVIDERS: PCP Student in an Organized Health Care Education/Training Program; Visit Provider Physician Assistant
DX: Z01.812 Encounter for preprocedural laboratory examination (principal)
CPT/HCPCS: 87635

== ENCOUNTER → 2021-01-09 10:44 | Outpatient (CLI) | payer MEDICARE, SELFPAY ==
--- NOTE | 2021-01-09 | DI.MG.S_ITS ---
BILATERAL DIGITAL SCREENING MAMMOGRAM 3D/2D WITH CAD: 01/09/2021 CLINICAL: Routine screening. Comparison is made to exams dated: 01/02/2020 mammogram, 12/01/2018 mammogram, and 11/09/2017 mammogram - [facility]. There are scattered fibroglandular elements in both breasts. Current study was also evaluated with a Computer Aided Detection (CAD) system. No significant masses, calcifications, or other findings are seen in either breast. There has been no significant interval change. IMPRESSION: NEGATIVE There is no mammographic evidence of malignancy. A 1 year screening mammogram is recommended. This exam was interpreted at Station ID: [id number]. NOTE: For mammograms, a report in lay terms will be sent to the patient. Approximately 15% of breast malignancies will not be visualized mammographically. In the management of a palpable breast mass, a negative mammogram must not discourage biopsy of a clinically suspicious lesion. Electronically Signed By: Hernán lewis/maricarmen:01/09/2021 11:14:42 letter sent: Normal Exam ACR BI-RADS Category 1: Negative 3341F
== END ==
PROVIDERS: PCP Student in an Organized Health Care Education/Training Program; Referring Provider Student in an Organized Health Care Education/Training Program; Visit Provider Student in an Organized Health Care Education/Training Program
DX: Z12.31 Encounter for screening mammogram for malignant neoplasm of breast (principal)
CPT/HCPCS: 77063; 77067

== ENCOUNTER → 2021-07-08 14:17 | Outpatient (CLI) | payer MEDICARE, SELFPAY ==
--- NOTE | 2021-07-08 14:18 | DI.CT.S_ITS ---
PROCEDURE: CT ABDOMEN PELVIS W CON INDICATIONS: early satiety, nausea TECHNIQUE: After the administration of intravenous contrast, axial sections acquired from the lung bases to the pubic symphysis. Coronal and sagittal reformats were performed. For radiation dose reduction, the following was used: automated exposure control, adjustment of mA and/or kV according to patient size. COMPARISON: None. FINDINGS: Included portions of the lung bases are clear. At least moderate hepatic steatosis with diffuse hypoattenuation of the liver when compared with the spleen. The liver is at the upper limits of normal for size. Gallbladder, spleen, pancreas, adrenal glands, and kidneys are normal. No abnormally dilated or thickened loop of bowel. No pericolonic or mesenteric inflammatory changes. Extensive sigmoid and distal descending colonic diverticulosis without findings of diverticulitis. Stomach and small bowel are within normal limits. Nonaneurysmal abdominal aorta. No threshold enlarged intra-abdominal, retroperitoneal, pelvic, or inguinal lymph node. Urinary bladder, uterus, and ovaries are within normal limits. No pathologic free fluid identified. Degenerative changes in the spine. No acute or suspicious osseous lesion. IMPRESSION: Moderate hepatic steatosis with borderline hepatomegaly. Otherwise no significant abnormality. Dictated by: Huy Reyes M.D. on 07/08/2021 at 16:14 Approved by: Huy Reyes M.D. on 07/08/2021 at 16:15
[2021-07-08 14:42] LABS: BUN Creatinine Ratio 28.4 (6-22); Blood Urea Nitrogen 21 mg/dL (7-17); Calcium 9.8 mg/dL (8.4-10.2); Carbon Dioxide 30 mmol/L (22-32); Chloride 104 mmol/L (98-107); Estimated Glomerular Filt Rate > 60.0 mL/min (>60); Glucose 93 mg/dL (80-110); HEMOLYSIS < 15 (0-50); Potassium 3.9 mmol/L (3.4-5.1); Sodium 140 mmol/L (137-145)
[2021-07-09 15:05] LABS: Alanine Aminotransferase 31 IU/L (<35); Albumin 4.6 g/dL (3.5-5.0); Albumin Globulin Ratio 1.3 (1.0-2.8); Alkaline Phosphatase 71 U/L (38-126); Aspartate Aminotransferase 38 IU/L (14-36); Bilirubin Total 0.4 mg/dL (0.2-1.3); Bilirubin Unconjugated 0.4 mg/dL (0.0-1.1); Gamma Glutamyl Transpeptidase 33 U/L (12-43); Globulin 3.6 g/dL (1.7-4.1); HEMOLYSIS 19 (0-50); Total Protein 8.2 g/dL (6.3-8.2)
== END ==
PROVIDERS: PCP Student in an Organized Health Care Education/Training Program; Referring Provider Student in an Organized Health Care Education/Training Program; Visit Provider Student in an Organized Health Care Education/Training Program
DX: Z01.812 Encounter for preprocedural laboratory examination (principal); K76.0 Fatty (change of) liver, not elsewhere classified; R68.81 Early satiety; K21.9 Gastro-esophageal reflux disease without esophagitis; K59.1 Functional diarrhea
CPT/HCPCS: 36415; 74177; 80048; 80076; 82977; Q9967

== ENCOUNTER 2021-10-01 11:57 | Emergency (ER) | payer MEDICARE, SELFPAY ==
--- NOTE | 2021-10-01 12:05 | DI.RAD.S_ITS ---
PROCEDURE: XR CHEST 1V INDICATIONS: chest pain TECHNIQUE: One view of the chest was acquired. COMPARISON: None. FINDINGS: Surgical changes and devices: Partially visualized cervical spine fixation hardware. Lungs and pleura: Lungs are clear. No pleural effusions or pneumothorax. Mediastinum: Mediastinal contours appear normal. Heart size is normal. Bones and chest wall: No suspicious bony lesions. Overlying soft tissues appear unremarkable. IMPRESSION: No acute cardiopulmonary disease process. Dictated by: Marjan Howard MD, PhD on 10/01/2021 at 12:21 Approved by: Marjan Howard MD, PhD on 10/01/2021 at 12:24
[2021-10-01 12:48] LABS: Add Manual Diff / Slide Review NO; Basophils Absolute Auto 100 /uL (0-100); Basophils Percent Auto 0.8 % (0-2); Eosinophils Absolute Auto 100 /uL (0-450); Eosinophils Percent Auto 1.9 % (2-4); Hematocrit 40.4 % (36-46); Hemoglobin 13.7 g/dL (12.0-16.0); Lymphocytes Absolute Auto 2000 /uL (1100-4500); Mean Corpuscular HGB Conc 33.8 % (30-36); Mean Corpuscular Volume 91.6 fL (80-100); Monocytes Absolute Auto 400 /uL (0-900); Neutrophils Absolute Auto 3900 /uL (1500-7000); Neutrophils Percent Auto 60.3 % (50-75); Platelet Count 208 X10^3/uL (150-400); Red Blood Cell Count 4.41 X10^6/uL (4.0-5.2); White Blood Cell Count 6.5 X10^3/uL (4.5-11.0)
[2021-10-01 12:56] LABS: Alanine Aminotransferase 24 IU/L (<35); Albumin 4.8 g/dL (3.5-5.0); Albumin Globulin Ratio 1.4 (1.0-2.8); Alkaline Phosphatase 82 U/L (38-126); Aspartate Aminotransferase 35 IU/L (14-36); BUN Creatinine Ratio 31.9 (6-22); Bilirubin Total 0.4 mg/dL (0.2-1.3); Blood Urea Nitrogen 23 mg/dL (7-17); Carbon Dioxide 25 mmol/L (22-32); Chloride 105 mmol/L (98-107); Creatine Kinase 74 U/L (30-135); Estimated Glomerular Filt Rate > 60 mL/min (>60); Globulin 3.4 g/dL (1.7-4.1); Glucose 101 mg/dL (80-110); HEMOLYSIS 21 (0-50); Lipase 274 U/L (23-300); Sodium 139 mmol/L (137-145); Total Protein 8.2 g/dL (6.3-8.2)
[2021-10-01 13:06] LABS: Troponin I < 0.012 ng/mL (0.01-0.034)
[2021-10-01 14:09] VITALS: PULSE 79; RESP 26; O2SAT 95
[2021-10-01 14:30] VITALS: BP 123/58; PULSE 77; RESP 18; O2SAT 95
[2021-10-01 15:00] VITALS: BP 131/61; PULSE 76; RESP 16; O2SAT 96
--- NOTE | 2021-10-01 15:25 | ED.CHESTPAIN ---
HPI - Chest Pain General Chief Complaint: Chest Pain Stated Complaint: Chest pains Time Seen by Provider: 10/01/21 14:43 Source: patient Mode of arrival: Ambulatory Limitations: no limitations History of Present Illness HPI narrative: Patient is a 71-year-old female with history of GERD, hyperlipidemia, degenerative disc disease presenting today with palpitations. She said that she has had palpitations off and on since . Today she has significant palpitations well drinking extra strong coffee. She said it persisted for about 3-4 hours. Now being in the emergency department for 3 hours she says she still occasionally has it. But not now. She remains in normal sinus rhythm. She denies any dizziness lightheadedness or shortness of breath. She has not been evaluated for these palpitations in the past. Related Data Home Medications Medication Instructions Recorded Confirmed CHOLECALCIFEROL (VITAMIN D3) 2,400 u PO QDAY #0 11/21/10 07/29/21 (VITAMIN D3) [MAGNESIUM] #0 11/21/10 07/29/21 [CALCIUM] 1,000 mg PO DAILY #0 11/26/10 07/29/21 Allergies Allergy/AdvReac Type Severity Reaction Status Date / Time doxycycline Allergy Severe NIGHTMARES Verified 07/29/21 10:57 hydrocodone Allergy Severe rash/itchy Verified 07/29/21 10:57 levofloxacin Allergy Severe rash/itchy Verified 07/29/21 10:57 penicillin G Allergy Severe RASH Verified 07/29/21 10:57 pseudoephedrine Allergy Severe PIERCE, Verified 07/29/21 10:57 NERVOUS, HYPER Sulfa (Sulfonamide Allergy Severe RASH Verified 07/29/21 10:57 Antibiotics) latex Allergy Intermediate Rash Verified 07/29/21 10:57 famotidine Allergy Mild Nausea Verified 07/29/21 10:57 metal Allergy Intermediate Rash, Itchy Uncoded 07/29/21 10:57 Review of Systems Review of Systems Narrative: GENERAL: Denies chills, fatigue, malaise, fever, sweats, travel HEENT: Denies sinus pain, ear pain, sore throat, difficulty swallowing, neck pain RESPIRATORY: Denies dyspnea, cough, wheezing, hemoptysis, sputum. CARDIOVASCULAR: See HPI GASTROINTESTINAL: Denies nausea, vomiting, abdominal pain, diarrhea, constipation, melena. : Denies dysuria, frequency, incontinence, hematuria, urinary retention, flank pain. MUSCULOSKELETAL: Denies weakness, joint pain, or bony pain SKIN: No rash, no erythema, no pruritus NEUROLOGIC: Denies weakness, dizziness, headache, numbness, change in speech, confusion PSYCHIATRIC: No concerning psychosocial issues. 12 point review of systems is negative except for those stated above and HPI Patient History Medical History (Updated 10/01/21 @ 15:41 by Lolita Still DO) Allergic rhinitis (Unknown) Carpal tunnel syndrome (Unknown) Chronic fatigue (11/07/15) DJD (degenerative joint disease) of cervical spine (Unknown) Gastroesophageal reflux disease (06/05/16) GERD (gastroesophageal reflux disease) (Unknown) Hearing loss (06/10/17) History of cervical spinal arthrodesis (03/06/16) Hyperlipemia (Unknown) Migraines (Unknown) Mixed hyperlipidemia (04/11/15) Osteopenia (04/11/15) Osteoporosis (Unknown) Other seasonal allergic rhinitis (04/11/15) Paresthesia of upper extremity (10/08/16) Persistent postural-perceptual dizziness (Unknown) Psoriasis (Unknown) Sacroiliac joint pain (06/10/17) Vertigo (03/06/16) Weakness of both hips (11/07/15) Weakness of shoulder (11/07/15) Surgical History Hx of cervical discectomy (Unknown) Family History Father Congestive heart failure Diabetes mellitus Heart disease Dementia Mother Loud snoring Obesity Hypertension Depression Grandfather No problems noted. Grandmother Cancer Family/Other Sleep apnea Hypertension Diabetes mellitus Anxiety Social History marital status: household members: spouse Smoking Status: Never smoker alcohol intake: current substance use type: does not use Smoking Status: Never smoker Substance Use Type: does not use Exam Initial Vital Signs Initial Vital Signs: Vital Signs Pulse Rate 79 10/01/21 14:09 Respiratory Rate 26 H 10/01/21 14:09 Pulse Oximetry 95 10/01/21 14:09 GENERAL: Alert well-appearing 71-year-old female no acute distress in no acute distress. HEENT: Head atraumatic,EOMI, pupils reactive, face symmetric, moist mucous membranes CARDIOVASCULAR: Regular rate and rhythm without murmurs, rubs or gallops. RESPIRATORY: Breath sounds equal bilaterally, no wheezes rales or rhonchi. ABDOMEN: Soft, nontender. Normoactive bowel sounds all 4 quadrants. No guarding or rebound. EXTREMITIES: Normal range of motion, no clubbing or edema. Neurovascularly intact NEUROLOGICAL: Alert and oriented x4.Normal gait and speech. SKIN: Warm, dry, no laceration, no petechiae, no rashes or lesions. Course Orders Ordered: ED Orders 10/01/21 12:05 XR chest 1V Stat EKG-12 Lead Stat 10/01/21 12:25 Complete Blood Count AUTO DIFF Stat Comprehensive Metabolic Panel Stat Lipase Stat Magnesium Stat Troponin & CK Cardiac Panel Stat Vital Signs Vital signs: Vital Signs - 8 hr 10/01/21 14:09 10/01/21 14:30 Pulse Rate 79 77 Respiratory Rate 26 H 18 Blood Pressure 123/58 L Pulse Oximetry 95 95 MDM - Chest Pain Lab Data Result diagrams: 10/01/21 12:25 10/01/21 12:25 Labs: Lab Results 10/01/21 10/01/21 Range/Units 12:25 12:25 WBC 6.5 (4.5-11.0) X10^3/uL RBC 4.41 (4.0-5.2) X10^6/uL Hgb 13.7 (12.0-16.0) g/dL Hct 40.4 (36-46) % MCV 91.6 (80-100) fL MCH 31.0 (26-34) PG MCHC 33.8 (30-36) % RDW 13.0 (11.6-14.8) % Plt Count 208 (150-400) X10^3/uL Neut % (Auto) 60.3 (50-75) % Lymph % (Auto) 31.0 (25-40) % Grant % (Auto) 6.0 (3-14) % Eos % (Auto) 1.9 L (2-4) % Baso % (Auto) 0.8 (0-2) % Neut # (Auto) 3900 (7671-2844) /uL Lymph # (Auto) 2000 (1989-4453) /uL Grant # (Auto) 400 (0-900) /uL Eos # (Auto) 100 (0-450) /uL Baso # (Auto) 100 (0-100) /uL Sodium 139 (137-145) mmol/L Potassium 4.0 (3.4-5.1) mmol/L Chloride 105 (98-107) mmol/L Carbon Dioxide 25 (22-32) mmol/L BUN 23 H (7-17) mg/dL Creatinine 0.72 (0.52-1.04) mg/dL Estimated GFR > 60 (>60) mL/min BUN/Creatinine Ratio 31.9 H (6-22) Glucose 101 (80-110) mg/dL Calcium 10.0 (8.4-10.2) mg/dL Magnesium 2.0 (1.6-2.3) mg/dL Total Bilirubin 0.4 (0.2-1.3) mg/dL AST 35 (14-36) IU/L ALT 24 (<35) IU/L Alkaline Phosphatase 82 (38-126) U/L Total Creatine Kinase 74 (30-135) U/L CK-MB (CK-2) TNP CK-MB (CK-2) Rel Index TNP Troponin I < 0.012 (0.01-0.034) ng/mL Total Protein 8.2 (6.3-8.2) g/dL Albumin 4.8 (3.5-5.0) g/dL Globulin 3.4 (1.7-4.1) g/dL Albumin/Globulin Ratio 1.4 (1.0-2.8) Lipase 274 (23-300) U/L Imaging Data Chest x-ray: Radiologist's Impression: [facility] [address] [place] [id number] XRay Report Signed Patient: Debbie Zhong MR#: [id number] : 1950 Acct:[id number] Age/Sex: 71 / F Date of Service: 10/01/21 Loc: ED Accession Number: [id number] ?? Procedure: XR chest 1V Ordering Provider: Lolita Still D.O. PROCEDURE:? XR CHEST 1V ? INDICATIONS:? chest pain ? TECHNIQUE:? One view of the chest was acquired.? ? COMPARISON:? None. ? FINDINGS:? ? Surgical changes and devices:? Partially visualized cervical spine fixation hardware.? ? Lungs and pleura:? Lungs are clear.? No pleural effusions or pneumothorax.? ? Mediastinum:? Mediastinal contours appear normal.? Heart size is normal.? ? Bones and chest wall:? No suspicious bony lesions.? Overlying soft tissues appear unremarkable.? ? IMPRESSION:? No acute cardiopulmonary disease process. ? Dictated by: Marjan Howard MD, PhD on 10/01/2021 at 12:21? ECG Data Interpretation: Normal sinus rhythm rate 82 AZ interval 152 QRS [address] changes right bundle-branch block noted new from previous EKG in 2011 MDM Narrative Medical decision making narrative: This is patient is complaining of palpitations. She has had them off and on. She has a normal sinus rhythm without PVCs or arrhythmia as the monitor. EKG in workup in the emergency department is negative. Palpitations started today will drinking extra strong coffee recommended she hold off on coffee and I do recommend an outpatient Holter monitor. Discharge Plan Departure Patient Disposition: Home Clinical Impression: Heart palpitations Instructions: DI for Arrhythmias Activity Restrictions/Additional Instructions: *You have been diagnosed with palpitations *What to do: At this time unclear what is causing her palpitations. I recommend you see your primary care provider for a Holter monitor. I also recommend decreasing her caffeine intake to see if it helps or palpitations *Continue to take medications as directed *Follow up with your primary care provider in 2-3 days or call [phone] *Return to ER if you should have increasing palpitations chest pain dizziness shortness of breath or any new, worsening or concerning symptoms Prescriptions: No Action [MAGNESIUM] Qty: 0 0RF CHOLECALCIFEROL (VITAMIN D3) (VITAMIN D3) 2,400 u PO QDAY Qty: 0 0RF [CALCIUM] 1,000 mg PO DAILY Qty: 0 0RF Referrals: Ja Roland MD [Primary Care Provider] -
[2021-10-01 15:30] VITALS: BP 142/66; PULSE 78; RESP 39; O2SAT 97
== END 2021-10-01 15:53 | disposition home or self-care (01) ==
PROVIDERS: Emergency Provider Emergency Medicine; PCP Student in an Organized Health Care Education/Training Program
DX: R00.2 Palpitations (principal); R07.9 Chest pain, unspecified
CPT/HCPCS: 36415; 71045; 80053; 82550; 83690; 83735; 84484; 85025; 93005; 99283; 99284

== ENCOUNTER → 2021-11-07 13:53 | Outpatient (CLI) | payer MEDICARE, SELFPAY | PROVIDERS: PCP Student in an Organized Health Care Education/Training Program; Referring Provider Student in an Organized Health Care Education/Training Program; Visit Provider Student in an Organized Health Care Education/Training Program | DX: Z78.0 Asymptomatic menopausal state (principal); M85.89 Other specified disorders of bone density and structure, multiple sites | CPT/HCPCS: 77080 ==

== ENCOUNTER → 2021-12-11 14:14 | Outpatient (CLI) | payer MEDICARE, SELFPAY ==
--- NOTE | 2021-12-11 14:15 | DI.ECHO.S_ITS ---
[facility] +---------+ : : [address] : : : : [address] : : : : Phone: [phone]+ Echocardiogram Report + + :Name: RAJENDRA LOYOLA Study Date: 12/11/2021 Height: 61.5 in: :[facility] ReadingLocation: Weight: 150 lb : : Gender: Female BSA: 1.7 m2 : :: 1950 Age: 71 yrs BP: 140/73 mmHg: :Reason For Study: ANGINA : :Ordering Physician: MY, : :MALCOLM Performed By: Ely Yap : :Referring: MALCOLM PEPE : + + Interpretation Summary The left ventricle is normal in size and wall thickness. The ejection fraction is estimated to be 60-65%. The right ventricle is normal in size and function. There is mild to moderate mitral regurgitation. There is mild tricuspid regurgitation. The right ventricular systolic pressure is estimated to be at least 21 mmHg based on an estimated right atrial pressure of 3 mm Hg. Procedure: A two-dimensional transthoracic echocardiogram with color flow and Doppler was performed. The study quality was technically adequate. There is no prior echocardiogram noted for this patient. The patient was in sinus rhythm with heart rates between 67-76 bpm during the exam. Left Ventricle: The left ventricle is normal in size and wall thickness. There is no thrombus. The ejection fraction is estimated to be 60-65%. Left ventricular systolic function is normal. There are no focal wall motion abnormalities. Diastolic parameters suggest a relaxation abnormality of the left ventricle, consistent with probable normal filling pressures. Right Ventricle: The right ventricle is normal in size and function. Atria: The left atrial size is normal. Right atrial size is normal. There is no Doppler evidence for an interatrial shunt. Mitral Valve: There is mild mitral annular calcification. The mitral valve leaflets are slightly calcified. There is mild to moderate mitral regurgitation. Aortic Valve: The aortic valve is trileaflet. The aortic valve opens well. There is no aortic valve stenosis. No aortic regurgitation is present. Tricuspid Valve: The tricuspid valve is normal in structure and function. There is mild tricuspid regurgitation. The right ventricular systolic pressure is estimated to be at least 21 mmHg based on an estimated right atrial pressure of 3 mm Hg. Pulmonic Valve: The pulmonic valve leaflets are thin and pliable; valve motion is normal. There is no pulmonic valvular regurgitation. Great Vessels: The aortic root is normal size. The dimensions of the ascending aorta are normal. The IVC is of normal diameter and collapses greater than 50% with a sniff. This suggests a low right atrial pressure of 3 mm Hg. Pericardium/ Pleura There is no pericardial effusion. There is no pleural effusion. MMode/2D Measurements & Calculations LVIDd: 4.5 cm LVOT diam: 2.0 cm LVIDs: 3.0 cm Ao root diam: 3.0 cm FS: 33.1 % asc Aorta Diam: 2.7 cm EPSS: 0.59 cm Ao Arch Diam (Prox Trans): 2.8 cm IVSd: 0.64 cm LVPWd: 0.68 cm LV sanon. diameter/BSA (cm/m^2): 2.7 LV sys. diameter/BSA (cm/m^2): 1.8 LA A2 area: 16.1 cm2 RA long axis: 4.0 cm LA A4 area: 15.3 cm2 RA area: 11.3 cm2 LA length (vol): 4.7 cm RA vol: 27.6 ml LA vol: 44.2 ml RA : 16.4 ml/m2 LA vol index: 26.3 ml/m2 IVC diam: 1.4 cm RVD1 (basal): 3.8 cm RVD2 (mid): 2.9 cm TAPSE: 1.9 cm Doppler Measurements & Calculations Ao V2 max: 115.0 cm/sec LVOT Max Anjel: 82.6 cm/sec Ao V2 mean: 80.6 cm/sec LV V1 max P.7 mmHg Ao max P.3 mmHg LV V1 VTI: 19.9 cm Ao mean P.9 mmHg ASHLEY(I,D): 2.4 cm2 Ao V2 VTI: 25.9 cm ASHLEY(V,D): 2.2 cm2 sev ratio: 0.77 ASHLEY indexed to BSA (cm^2/m^2): 1.4 MV E max anjel: 68.4 cm/sec TR max anjel: 215.3 cm/sec MV A max anjel: 79.1 cm/sec TR max P.5 mmHg MV E/A: 0.86 PA V2 max: 80.2 cm/sec Med Peak E' Anjel: 5.5 cm/sec PA V2 mean: 54.1 cm/sec E/E' med: 12.5 PA mean P.3 mmHg Lat Peak E' Anjel: 8.2 cm/sec PA pr(Accel): 10.5 mmHg E/E' lat: 8.4 E/e' average: 10.4 MV dec time: 0.24 sec SV(HUNTER): 61.1 ml Reading Physician:08:11 AM
== END ==
PROVIDERS: PCP Student in an Organized Health Care Education/Training Program; Referring Provider Student in an Organized Health Care Education/Training Program; Visit Provider Student in an Organized Health Care Education/Training Program
DX: I08.1 Rheumatic disorders of both mitral and tricuspid valves (principal); I20.8 Other forms of angina pectoris
CPT/HCPCS: 93306

== ENCOUNTER → 2021-12-19 09:30 | Outpatient (CLI) | payer MEDICARE, SELFPAY ==
[2021-12-22 08:27] LABS: COVID19 -Nasal RAPID Negative (Negative)
--- NOTE | 2021-12-22 09:17 | P.PCN_ITS ---
Cardiac Stress Test Report Referral & Results Date Patient Seen: 12/22/21 Time Patient Seen: 09:00 Requesting provider: Ja Roland Indication: Anginal symptoms Rest ECG: Normal sinus rhythm Procedure Note: Today, following both written and verbal informed consent, the patient was exercised according to a standard Lucius protocol. The patient went for a total of 6 minutes achieving a maximum heart rate of 146 maximum systolic blood pressure of 200. This is approximately 7.0 METs. Exercise was terminated at this point because of fatigue. Patient was also given Cardiolite through a previously started Hep-Lock IV by the nuclear plant instrument technician approximately 1 minute prior to the cessation of exercise. Normal hemodynamic response to exercise. No EKG changes. No signs or symptoms of angina. Normal exercise capacity (FA I 0% on active scale). Impression: Low probability for ischemia. Perfusion imaging pending. Please note: Actual ECG tracings can be found in the PACS system.
--- NOTE | 2021-12-22 18:11 | DI.NM.S_ITS ---
DATE OF SERVICE: 12/19/2021 PROCEDURE PERFORMED: Exercise perfusion study. INDICATION: Angina pectoris, hyperlipidemia, palpitation. RADIOPHARMACEUTICAL: 26.6 millicurie technetium-99m Myoview IV was injected at stress and 26.4 millicurie technetium-99m Myoview IV was injected at rest. CARDIAC STRESS: The patient underwent exercise perfusion study under the supervision of an attending staff, as per standard protocol. The patient walked on Lucius protocol for 7 minutes and achieved 97 percent of target heart rate. Baseline blood pressure 140/80. Peak blood pressure 200/70 mmHg. Maximum heart rate 146 beats per minute. Baseline rhythm was sinus with partial right bundle branch block. During stress, no convincing ischemic changes or significant arrhythmias seen. The patient achieved 7 METs of workload. BOYD is 0 percent. No anginal symptoms. The patient felt fatigue. No significant arrhythmias seen. RAW DATA: There was breast shadow seen. GATED STUDY: Resting LV ejection fraction 86 percent and stress LV ejection fraction 93 percent. No significant wall motion abnormalities. Resting end- diastolic volume 63 mL. TID ratio 0.85, which is within normal limits. Lung/heart ratio 0.30, which is within normal limits. MYOCARDIAL PERFUSION SCAN: Stress supine and resting supine images revealed minimally decreased, very small mid anterior wall defect, which got resolved during stress prone images, suggestive of breast tissue attenuation artifact. Stress prone images revealed normal myocardial perfusion. CONCLUSION: This is a normal myocardial perfusion study with some evidence of breast tissue attenuation artifact, which got completely resolved during stress prone images. Fair exercise tolerance. Mildly hypertensive blood pressure response. No ischemic electrocardiographic changes. No significant arrhythmias. No recurrence of angina during exercise. Overall low-risk exercise stress test. Debbie Zhong - MEAGHAN/dennis/lemuel doc#: [id number]/job#: [id number] dd: 12/22/2021 16:29:00 dt: 12/22/2021 17:39:00 DICTATING MD/COPIES TO: Ena Peralta MD COPIES MNE: JAMIE;
== END ==
PROVIDERS: PCP Student in an Organized Health Care Education/Training Program; Referring Provider Student in an Organized Health Care Education/Training Program; Visit Provider Student in an Organized Health Care Education/Training Program
DX: I20.8 Other forms of angina pectoris (principal); E78.5 Hyperlipidemia, unspecified; R00.2 Palpitations; Z20.822 Contact with and (suspected) exposure to COVID-19
CPT/HCPCS: 78452; 87635; 93016; 93017; 93018; A9502

== ENCOUNTER → 2022-01-12 14:16 | Outpatient (CLI) | payer MEDICARE, SELFPAY ==
--- NOTE | 2022-01-12 | DI.MG.S_ITS ---
BILATERAL DIGITAL SCREENING MAMMOGRAM 3D/2D WITH CAD: 01/12/2022 CLINICAL: Routine screening. Comparison is made to exams dated: 01/09/2021 mammogram, 01/02/2020 mammogram, and 12/01/2018 mammogram - [facility]. There are scattered fibroglandular elements in both breasts. Current study was also evaluated with a Computer Aided Detection (CAD) system. No significant masses, calcifications, or other findings are seen in either breast. There has been no significant interval change. IMPRESSION: NEGATIVE There is no mammographic evidence of malignancy. A 1 year screening mammogram is recommended. Based on the Tyrer Cuzick model (a risk assessment model) the patient's lifetime risk is 5.2% and her 10 year risk is 3.3%. According to the ACR, ACS, and NCCN guidelines, an annual breast MRI exam along with mammogram is recommended if the patient's lifetime risk is 20% or greater. This exam was interpreted at Station ID: [id number]. NOTE: For mammograms, a report in lay terms will be sent to the patient. Approximately 15% of breast malignancies will not be visualized mammographically. In the management of a palpable breast mass, a negative mammogram must not discourage biopsy of a clinically suspicious lesion. Electronically Signed By: Khalif norman/maricarmen:01/12/2022 15:53:41 letter sent: Normal Exam ACR BI-RADS Category 1: Negative [id number]
== END ==
PROVIDERS: PCP Student in an Organized Health Care Education/Training Program; Referring Provider Student in an Organized Health Care Education/Training Program; Visit Provider Student in an Organized Health Care Education/Training Program
DX: Z12.31 Encounter for screening mammogram for malignant neoplasm of breast (principal)
CPT/HCPCS: 77063; 77067

== ENCOUNTER → 2022-06-08 14:46 | Outpatient (CLI) | payer MEDICARE, SELFPAY ==
--- NOTE | 2022-06-08 14:48 | DI.RAD.S_ITS ---
PROCEDURE: XR KNEE RT 3V INDICATIONS: Knee inflammation w/o trauma. TECHNIQUE: 3 views of the knee were acquired. COMPARISON: [facility], , KNEE 3V RIGHT, 06/09/2016, 12:00. FINDINGS: Bones: No fractures or dislocations. No suspicious bony lesions. Mild narrowing of the lateral femoral tibial and patellofemoral knee joint with mild periarticular osteophyte formation. Soft tissues: Small joint effusion. No suspicious soft tissue calcifications. IMPRESSION: Knee joint degeneration, most notably involving the lateral femoral tibial joint. Dictated by: Mohamud PULLIAM Interpreted: Saurav Horner MD on 06/08/2022 at 15:40 Transcribed by: ROCIO on 06/08/2022 at 15:40 Approved by: Saurav Horner M.D. on 06/08/2022 at 20:57
== END ==
PROVIDERS: PCP Student in an Organized Health Care Education/Training Program; Referring Provider Student in an Organized Health Care Education/Training Program; Visit Provider Student in an Organized Health Care Education/Training Program
DX: M25.561 Pain in right knee (principal); M17.11 Unilateral primary osteoarthritis, right knee
CPT/HCPCS: 73562

== ENCOUNTER → 2022-09-02 11:31 | Outpatient (CLI) | payer MEDICARE, SELFPAY ==
--- NOTE | 2022-09-02 11:31 | DI.MRI.S_ITS ---
PROCEDURE: MR KNEE RT WO CON INDICATIONS: Right knee pain not improving with conservative management TECHNIQUE: Noncontrast sagittal PD fast spin echo and T2 fast spin echo with fat saturation, sagittal 3-D FLASH with fat saturation; coronal T1 spin echo and PD fast spin echo with fat saturation, and axial PD fast spin echo with fat saturation through the knee. COMPARISON: [facility], CR, XR KNEE RT 3V, 06/08/2022, 15:07. FINDINGS: Image quality: Good Menisci: Medial: Suspected degenerative signal abnormality of the posterior horn. Meniscocapsular junction is intact. Lateral: Tiny horizontal tear in the peripheral body (10/20). Cruciate ligaments: Intact Medial structures: MCL: Intact Pes anserine tendons: Intact Semimembranosus: Intact Lateral structures: LCL: Intact Biceps femoris: Intact IT band: Intact Popliteus tendon: Intact Anterior structures: Extensor mechanism: Intact. There is trace edema anterior to the tibial tuberosity and distal patellar tendon. Fat pads: No pathologic edema Medial retinaculum: Intact. Trochlea: Unremarkable morphology. Bone and joint: Bones: No fracture, dislocation, or suspicious edema Cartilage: Mild heterogeneity of the medial lateral compartments, without significant defect. High-grade focal fissuring at the median ridge of the patella, without underlying marrow edema. Joint space: Physiologic fluid. No measureable loose body. Marrero's cyst: Trace Marrero's cyst. Soft tissues: No significant vascular or other soft tissue pathology. IMPRESSION: Intact cruciate ligaments. Tiny horizontal tear of the peripheral lateral meniscal body. The medial meniscus appears intact, with only trace internal degenerative signal. High-grade focal fissuring of the patellar median ridge (5/9) without underlying marrow edema. Mild overall degenerative changes. Trace edema anterior to the tibial tuberosity and distal patellar tendon. Dictated by: Fortino Son M.D. on 09/02/2022 at 13:57 Approved by: Fortino Son M.D. on 09/02/2022 at 14:04
== END ==
PROVIDERS: PCP Student in an Organized Health Care Education/Training Program; Referring Provider Student in an Organized Health Care Education/Training Program; Visit Provider Student in an Organized Health Care Education/Training Program
DX: M25.561 Pain in right knee (principal)
CPT/HCPCS: 73721

== ENCOUNTER 2022-10-11 11:46 | Emergency (ER) | payer MEDICARE, SELFPAY ==
[2022-10-11 11:57] VITALS: BP 136/69; PULSE 81; RESP 16; TEMP 36.4; O2SAT 97; BMI 27.4
--- NOTE | 2022-10-11 12:02 | PC.NURSE ---
Pt reports she believes a piece of her hearing aid is stuck in her R ear. No foreign body noted on inspection of R ear with otoscope. Pt denies pain.
--- NOTE | 2022-10-11 12:06 | ED.SKABFB ---
HPI - Skin/Abscess/Foreign Bdy General Chief complaint: Skin/Abscess/Foreign Body Stated complaint: hearing aide piece inside rt ear Time Seen by Provider: 10/11/22 12:02 History of Present Illness HPI narrative: 72-year-old female nonsmoker with noncontributory medical history presents with a concern of the possibility of a portion of her hearing aid stuck in her right ear. She states that she is not having any pain, drainage, bleeding or other issues but she is missing a small black plastic part of her hearing aid and her took a look with a flashlight and was able to see with the thought was this remaining piece. She is otherwise well and free of complaint Related Data Home Medications Medication Instructions Recorded Confirmed CHOLECALCIFEROL (VITAMIN D3) 2,400 u PO QDAY ##0 11/21/10 08/20/22 (VITAMIN D3) [MAGNESIUM] ##0 11/21/10 08/20/22 [CALCIUM] 1,000 mg PO DAILY ##0 11/26/10 08/20/22 Previous Rx's Medication Instructions Recorded clobetasol 0.05 % lotion 1 applic topical BID PRN Psoriasis 07/10/22 #118 mL Allergies Allergy/AdvReac Type Severity Reaction Status Date / Time doxycycline Allergy Severe NIGHTMARES Verified 08/20/22 11:15 hydrocodone Allergy Severe rash/itchy Verified 08/20/22 11:15 levofloxacin Allergy Severe rash/itchy Verified 08/20/22 11:15 penicillin G Allergy Severe RASH Verified 08/20/22 11:15 pseudoephedrine Allergy Severe PIERCE, Verified 08/20/22 11:15 NERVOUS, HYPER Sulfa (Sulfonamide Allergy Severe RASH Verified 08/20/22 11:15 Antibiotics) latex Allergy Intermediate Rash Verified 08/20/22 11:15 famotidine Allergy Mild Nausea Verified 08/20/22 11:15 metal Allergy Intermediate Rash, Itchy Uncoded 08/20/22 11:15 Review of Systems Review of Systems Narrative: GENERAL: Denies chills, fatigue, malaise, fever, sweats. HEENT: Denies sinus pain, ear pain, sore throat, difficulty swallowing, dizziness. RESPIRATORY: Denies dyspnea, cough, wheezing, hemoptysis, sputum. CARDIOVASCULAR: Denies chest pain, palpitations, orthopnea, edema, 12 point review of systems is negative except for those stated above Patient History Medical History Allergic rhinitis (Unknown) Carpal tunnel syndrome (Unknown) Chronic fatigue (11/07/15) DJD (degenerative joint disease) of cervical spine (Unknown) Gastroesophageal reflux disease (06/05/16) GERD (gastroesophageal reflux disease) (Unknown) Hearing loss (06/10/17) History of cervical spinal arthrodesis (03/06/16) Hyperlipemia (Unknown) Migraines (Unknown) Mixed hyperlipidemia (04/11/15) Osteopenia (04/11/15) Osteoporosis (Unknown) Other seasonal allergic rhinitis (04/11/15) Paresthesia of upper extremity (10/08/16) Persistent postural-perceptual dizziness (Unknown) Psoriasis (Unknown) Sacroiliac joint pain (06/10/17) Vertigo (03/06/16) Weakness of both hips (11/07/15) Weakness of shoulder (11/07/15) Surgical History Hx of cervical discectomy (Unknown) Family History Father Congestive heart failure Diabetes mellitus Heart disease Dementia Mother Loud snoring Obesity Hypertension Depression Grandfather No problems noted. Grandmother Cancer Family/Other Sleep apnea Hypertension Diabetes mellitus Anxiety Social History marital status: household members: spouse Smoking Status: Never smoker alcohol intake: current substance use type: does not use Smoking Status: Never smoker Substance Use Type: does not use Exam Narrative Exam Narrative: GEN: AOx3 and in mild distress EYES: Pupils are equal, round, and reactive to light and accommodation. Extraoccular muscles are intact bilaterally. There is no subconjunctival hemorrhage or exudate. EARS: R EAC patent, no bleeding, drainage, swelling. TM in tact, clear, no perforation. NO visible foreign body noted CHEST: Lungs are clear to auscultation bilaterally and free of wheezes, rales, or rhonchi. Heart rate is regular rhythm, there are no murmurs, clicks, rubs, or gallops. There is no chest wall tenderness. ABD: Abdomen is soft and nontender. EXT: Full painless ROM of all extremities with no loss of sensation or strength. SKIN: Warm, pink, and dry. No erythema or rash Initial Vital Signs Initial Vital Signs: Vital Signs Temperature 97.6 F 10/11/22 11:57 Pulse Rate 81 10/11/22 11:57 Respiratory Rate 16 10/11/22 11:57 Blood Pressure 136/69 10/11/22 11:57 Pulse Oximetry 97 10/11/22 11:57 Oxygen Delivery Method Room Air 10/11/22 11:57 Course Vital Signs Vital signs: Vital Signs - 8 hr 10/11/22 11:57 Temperature 97.6 F Pulse Rate 81 Respiratory Rate 16 Blood Pressure 136/69 Pulse Oximetry 97 Oxygen Delivery Method Room Air MDM - Skin/Abscess/Foreign Bdy MDM Narrative Medical decision making narrative: [72] year old patient presents with questionable right ear foreign body Multiple etiologies for patient's symptoms considered including, but not limited to: [Foreign body versus other] Prior Charts reviewed in our EMR Primary Historian: patient Patient with reassuring history and physical exam. No evidence of FB, no evidence of injury. Findings and discharge diagnosis discussed with patient/family followed by verbalization of understanding Return precautions discussed with patient/family whom verbalize understanding of diagnosis and plan Discharge Plan Departure Patient Disposition: Home Clinical Impression: Feared complaint without diagnosis Instructions: DI for Removal of Foreign Body From Ear Activity Restrictions/Additional Instructions: *You have been diagnosed with [no obvious retained foreign body in your right ear.] *What to do: *Please continue to take your regular medications as directed. [ ] New medication prescriptions sent to your pharmacy: [ ] [ ] New medication written as a paper prescription [ ] No new medications given *Please follow up with your ENT doctor in 2-3 days, call for an appointment. Let them know you were seen in the Emergency Department and that we ask that you be seen in follow up. We will electronically transmit a record of today's note if your PCP is in our system *Return to Emergency Department if you should have any new, worsening or concerning symptoms Prescriptions: No Action [MAGNESIUM] Qty: 0 CHOLECALCIFEROL (VITAMIN D3) (VITAMIN D3) 2,400 u PO QDAY Qty: 0 [CALCIUM] 1,000 mg PO DAILY Qty: 0 clobetasol 0.05 % lotion 1 applic TOP BID PRN (Reason: Psoriasis) Qty: 118 5RF Referrals: Ja Roland MD [Primary Care Provider] - Stand Alone Forms: Patient Portal/API
== END 2022-10-11 12:05 | disposition home or self-care (01) ==
PROVIDERS: Emergency Provider Emergency Medicine; Family Provider Student in an Organized Health Care Education/Training Program; PCP Student in an Organized Health Care Education/Training Program
DX: T16.1XXA Foreign body in right ear, initial encounter (principal)
CPT/HCPCS: 99281

== ENCOUNTER → 2023-01-19 12:31 | Outpatient (CLI) | payer MEDICARE, SELFPAY ==
[2023-01-19 14:12] LABS: Add Manual Diff / Slide Review NO; Basophils Absolute Auto 0 /uL (0-100); Basophils Percent Auto 0.4 % (0-2); Eosinophils Absolute Auto 100 /uL (0-450); Eosinophils Percent Auto 2.4 % (2-4); Hematocrit 37.5 % (36-46); Lymphocytes Absolute Auto 2000 /uL (1100-4500); Lymphocytes Percent Auto 39.5 % (25-40); Mean Corpuscular HGB Conc 34.6 % (30-36); Mean Corpuscular Hemoglobin 32.1 PG (26-34); Mean Corpuscular Volume 92.7 fL (80-100); Monocytes Absolute Auto 200 /uL (0-900); Monocytes Percent Auto 4.8 % (3-14); Neutrophils Absolute Auto 2700 /uL (1500-7000); Neutrophils Percent Auto 52.9 % (50-75); Platelet Count 191 X10^3/uL (150-400); Red Blood Cell Count 4.05 X10^6/uL (4.0-5.2); Red Cell Distribution Width 13.4 % (11.6-14.8); White Blood Cell Count 5.1 X10^3/uL (4.5-11.0)
[2023-01-19 14:18] LABS: Hemoglobin A1C% w Est Avg Glu 5.5 % (4.0-6.0)
[2023-01-19 14:29] LABS: Erythrocyte Sedimentation Rate 23 MM/HR (0-20)
[2023-01-19 14:31] LABS: Appearance Urine UA CLEAR; Bilirubin Urine UA NEGATIVE (NEGATIVE); Color Urine UA YELLOW; Glucose Urine UA NEGATIVE (Negative); Ketones Urine UA NEGATIVE (NEGATIVE); Leukocyte Esterase Urine UA NEGATIVE (NEGATIVE); Nitrite Urine UA NEGATIVE (Negative); Occult Blood Urine UA NEGATIVE (Negative); Protein Urine UA NEGATIVE (Negative); Specific Gravity Urine UA >=1.030 (1.000-1.035); Urobilinogen Urine UA 0.2 E.U./dL (0.2)
[2023-01-19 14:37] LABS: Alanine Aminotransferase 20 IU/L (<35); Albumin 4.1 g/dL (3.5-5.0); Albumin Globulin Ratio 1.5 (1.0-2.8); Alkaline Phosphatase 73 U/L (38-126); Aspartate Aminotransferase 24 IU/L (14-36); BUN Creatinine Ratio 27.5 (6-22); Bilirubin Total 0.3 mg/dL (0.2-1.3); Blood Urea Nitrogen 22 mg/dL (7-17); C-Reactive Protein Quant < 0.5 mg/dL (<1.0); Calcium 9.3 mg/dL (8.4-10.2); Carbon Dioxide 27 mmol/L (22-32); Chloride 105 mmol/L (98-107); Estimated Glomerular Filt Rate > 60 mL/min (>60); Globulin 2.7 g/dL (1.7-4.1); Glucose 168 mg/dL (80-110); HEMOLYSIS < 15 (0-50); Potassium 4.2 mmol/L (3.4-5.1); Sodium 141 mmol/L (137-145); Total Protein 6.8 g/dL (6.3-8.2)
[2023-01-19 14:41] LABS: pH Urine UA 5.5 (4.5-8.0)
[2023-01-19 14:42] LABS: Rheumatoid Factor < 8.6 IU/mL (<12.0)
[2023-01-19 14:43] LABS: Bacteria Urine None Seen; Culture Indicated Urine Cult Not Indicated; RBC Urine None Seen (0-5/HPF); Squamous Epithelial Cell Urine 0-1 /HPF (0-5/HPF); WBC Urine None Seen (0-5/HPF)
[2023-01-19 16:47] LABS: Vitamin D 25 Hydroxy (D3) 53.8 ng/mL (30.0-100.0)
[2023-01-21 14:54] LABS: ANA Screen, IFA Negative (.)
== END ==
PROVIDERS: Family Provider Student in an Organized Health Care Education/Training Program; PCP Pediatrics; Referring Provider Pediatrics; Visit Provider Pediatrics
DX: L40.9 Psoriasis, unspecified (principal); R53.82 Chronic fatigue, unspecified; M25.50 Pain in unspecified joint; M85.80 Other specified disorders of bone density and structure, unspecified site
CPT/HCPCS: 36415; 80053; 81001; 82306; 83036; 84443; 85025; 85651; 86038; 86140; 86430

== ENCOUNTER 2023-02-22 13:30 | Outpatient (RCR) | payer MEDICARE, SELFPAY ==
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
--- NOTE | 2023-01-18 18:07 | PT.OPPOC ---
Physical, Occupational & Speech Therapy At [facility] Current Diagnoses Unilateral primary osteoarthritis, right knee (02/02/23) Muscle weakness (generalized) (02/02/23) Pain in right thigh (02/02/23) Difficulty in walking, not elsewhere classified (02/02/23) Abnormal posture (02/02/23) Visit Care Team Role Provider Type Ja Roland MD Family Provider Physician Primary Care Provider Specialty: Internal Medicine Address: [address] [place] [address], [address], [address] Email: [email or web address] Gerald Toussaint MD Attending Provider Physician Referring Provider Specialty: Orthopedics Orthopedic Surgery Address: [address] [place] [address], [address] Email: [email or web address] Plan Of Care PT-OP-T Assessment and Plan Start: 10/27/22 15:12 Freq: Status: Active Protocol: Document 02/02/23 17:46 [facility] (Rec: 01/18/23 11:31 [facility] [id number]) Physical Therapy Assessment Goals activity Snf Goal (LTG) Pt will be able to sit w/RLE on L to be able to don socks and shoes w/o pain. 12/14/22: Some pain in R thigh 01/01/23: Pain if first thing in the morning pain w/ RLE, but after loosened up is better; improved since start LTG Duration 03/15 strength Short Term Goal (STG) Pt will be indep w/HEP for mobility, strength and stability. STG Duration achieved advancing as able Forest Patrolman Goal (LTG) Pt will improve LE strength to at least 4+/5 and LPM to at least 3/5 on LPM in order to improve pt ability to do ADLs w/o inc pain. 02/02-slowly imprvoing, noting less pain w/ADLs LTG Duration 03/15 walking Impairment after 10 min of walking - significant pain Short Term Goal (STG) Pt will be able to walk 15 min w/o inc pain greater than / 10. 12/17-pt walked for 20 min w/ relatives and was sore in entire leg-felt really tired and like a bruise 01/01/23 - pt has not tried recently but will try walking this weekend and report back. 01/11: 01/07 and 01/09 pt walked 20 min each with usual slight limp but afterwards pain set in right away to R outer thigh and trickled in to knee. limited walking d/t feeling overall fatigued STG Duration 02/21/23 Snf Goal (LTG) Pt will be able to walk 30 min w/o inc pain greater than 2/ 10. LTG Duration 03/15/23 Assessment Summary Assessment Pt did well with cueing w/ exercises, but has not been doing as much d/t feeling exhausted recently. pt is limited in ER of hip still and does improve w/mnaul. given exercsies to help. Pt had pain when laying flat supine in R knee that improved w/manual treatment. Pt does improve w/ therapy and is noting less pain overall and does have more strength and ROM. She has been limited recently by fatigue so has not been walking d/t this. COnt PT to wrok on pt strength, balance, gait, ROM and dec pain. Physical Therapy Plan Frequency and Duration Frequency of Treatment 1-2x/wk Duration of treatment (weeks) 8 Plan of Care Start Date 01/18/23 Plan of Care End Date 03/15/23 Next Visit Focus/Plan Next Note Type Treatment Note Next Visit Plan review squat for full range & hip rotation exercise; cont to work on pt ability to walk w/ o pain & ability to rotate leg w/o pain for socks Plan of Care Dates Plan of Care Start Date 01/18/23 Plan of Care End Date 03/15/23 Electronically Signed by: Sienna Rojo, PT 02/02/23 0384 If you are in agreement with this Plan of Care, please return a signed and dated copy. I have reviewed this Plan of Care and certify that the skilled therapy services above are required to meet the patient?s needs. Physician Signature Date Printed Name and Credentials Clinical Instructor Signature Printed Name and Credentials
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
== END 2023-02-24 16:48 | disposition home or self-care (01) ==
LOC: PHYS 13:30
PROVIDERS: Family Provider Student in an Organized Health Care Education/Training Program; PCP Student in an Organized Health Care Education/Training Program; Referring Provider Orthopaedic Surgery; Visit Provider Orthopaedic Surgery
DX: M17.11 Unilateral primary osteoarthritis, right knee (principal); R26.2 Difficulty in walking, not elsewhere classified; R29.3 Abnormal posture; M62.81 Muscle weakness (generalized); M79.651 Pain in right thigh
CPT/HCPCS: 97110; 97112; 97140; 97162; 97530; 97535

== ENCOUNTER → 2023-03-02 14:43 | Outpatient (CLI) | payer OTHER, SELFPAY ==
--- NOTE | 2023-03-02 | DI.MG.S_ITS ---
BILATERAL DIGITAL SCREENING MAMMOGRAM 3D/2D WITH CAD: 03/02/2023 CLINICAL: Routine screening. Comparison is made to exams dated: 01/12/2022 mammogram, 01/09/2021 mammogram, 01/02/2020 mammogram, and 12/01/2018 mammogram - [facility]. There are scattered areas of fibroglandular density in both breasts (category b / 25%-50% glandular tissue). Current study was also evaluated with a Computer Aided Detection (CAD) system. No significant masses, calcifications, or other findings are seen in either breast. There has been no significant interval change. IMPRESSION: NEGATIVE There is no mammographic evidence of malignancy. A 1 year screening mammogram is recommended. Based on the Tyrer Cuzick model (a risk assessment model) the patient's lifetime risk is 4.9% and her 10 year risk is 3.4%. According to the ACR, ACS, and NCCN guidelines, an annual breast MRI exam along with mammogram is recommended if the patient's lifetime risk is 20% or greater. This exam was interpreted at Station ID: [id number]. NOTE: For mammograms, a report in lay terms will be sent to the patient. Approximately 15% of breast malignancies will not be visualized mammographically. In the management of a palpable breast mass, a negative mammogram must not discourage biopsy of a clinically suspicious lesion. Electronically Signed By: Saurav armijo/maricarmen:03/02/2023 16:33:20 letter sent: Normal Exam ACR BI-RADS Category 1: Negative [id number]
== END ==
PROVIDERS: Family Provider Student in an Organized Health Care Education/Training Program; PCP Pediatrics; Referring Provider Pediatrics; Visit Provider Pediatrics
DX: Z12.31 Encounter for screening mammogram for malignant neoplasm of breast (principal)
CPT/HCPCS: 77063; 77067

== ENCOUNTER → 2023-04-07 15:31 | Outpatient (CLI) | payer OTHER, SELFPAY ==
--- NOTE | 2023-04-07 15:32 | DI.MRI.S_ITS ---
PROCEDURE: MR HIP RT WO/W CON INDICATIONS: ARTHROPATHY TECHNIQUE: Noncontrast coronal T1 spin echo and STIR through the bony pelvis. Coronal and axial T2 fast spin echo with fat saturation, axial T1 spin echo with fat saturation, sagittal T1 spin echo, and oblique axial T2 fast spin echo with fat saturation through the hip. Post-contrast axial, coronal, and sagittal spin echo with fat saturation through the hip. COMPARISON: None. FINDINGS: Image quality: Excellent. Bones and joints: Asymmetric [id number]-fb-opttskee right hip joint osteoarthritic changes are seen with superior joint space narrowing, subchondral sclerosis and small marginal osteophyte formation. No fracture or dislocation. Subcortical T2 hyperintense signal involving superior medial aspect of humeral head with enhancement which could may represent focal area of erosion. Subcortical T2 hyperintense signal involving anterior and superior aspect of right acetabulum adjacent to right femoral head is also seen and show contrast enhancement concerning for erosive changes. No evidence of avascular necrosis of femoral head. No other area of abnormal signal. Degenerative disc disease at L5-S1 level is seen. Tendons and ligaments: Distal right gluteus medius and minimus tendinosis at their insertion on greater trochanter is seen, without associated muscle atrophy. The nearby proximal iliotibial band also appears intact. The iliopsoas tendon appears intact, without adjacent bursal fluid collections or evidence for impingement syndrome. The origin of the hamstring tendon is intact at the ischial tuberosity, as well as the associated sacrotuberous ligament. The straight and reflected heads of the rectus femoris muscle origin appear intact, as well as the conjoint tendon. The ligamentum teres appears intact where visualized. Labrum and cartilage: There is fraying of superior anterior labrum with signal abnormality at 12 to 2 o'clock position concerning for superior anterior labral tear. Diffuse thinning of cartilage over right femoral head is also noted. Soft tissues: No suspicious soft tissue enhancement. Visualized muscles demonstrate normal bulk and internal signal. Quadratus femoris muscle demonstrates no internal edema to suggest ischiofemoral impingement. The proximal sciatic neurovascular bundle appears normal adjacent to the hamstring tendons. No free pelvic fluid. Bladder wall thickness is normal. Genitourinary structures and bowel loops appear normal where visualized. IMPRESSION: 1. Asymmetric moderate right hip joint osteoarthritis. No acute fracture or dislocation. No evidence of avascular necrosis of femoral head. Small T2 hyperintense signal areas involving medial right femoral head and superior lateral right acetabulum and show subtle contrast enhancement concerning for erosion secondary to inflammatory arthropathy. 2. No enhancing soft tissue mass. No evidence of trochanteric bursitis. No abnormal synovial thickening to suggest synovitis. 3. Distal right gluteus medius and minimus tendinosis. No other muscle or tendon signal abnormalities. 4. Finding is concerning for superior anterior right hip labral tear at 12 to 2 o'clock position. Dictated by: Yogi Carlton M.D. on 04/08/2023 at 9:27 Approved by: Yogi Carlton M.D. on 04/08/2023 at 9:43
== END ==
PROVIDERS: Family Provider Student in an Organized Health Care Education/Training Program; PCP Pediatrics; Referring Provider Internal Medicine Rheumatology; Visit Provider Internal Medicine Rheumatology
DX: M16.11 Unilateral primary osteoarthritis, right hip (principal)
CPT/HCPCS: 73723; A9579

== ENCOUNTER → 2023-06-16 09:01 | Outpatient (CLI) | payer OTHER, SELFPAY ==
[2023-06-16 10:37] LABS: Alanine Aminotransferase 24 IU/L (<35); Albumin 4.4 g/dL (3.5-5.0); Albumin Globulin Ratio 1.4 (1.0-2.8); Alkaline Phosphatase 72 U/L (38-126); Aspartate Aminotransferase 27 IU/L (14-36); BUN Creatinine Ratio 33.8 (6-22); Bilirubin Total 0.4 mg/dL (0.2-1.3); Blood Urea Nitrogen 24 mg/dL (7-17); Calcium 9.8 mg/dL (8.4-10.2); Carbon Dioxide 27 mmol/L (22-32); Chloride 103 mmol/L (98-107); Cholesterol 227 mg/dL (140-199); Estimated Glomerular Filt Rate > 60 mL/min (>60); Globulin 3.1 g/dL (1.7-4.1); Glucose 90 mg/dL (80-110); HDL Cholesterol 61 mg/dL (40-60); HEMOLYSIS < 15 (0-50); LDL Cholesterol Calculated 116 mg/dL (<100); Potassium 4.2 mmol/L (3.4-5.1); Sodium 138 mmol/L (137-145); Total Protein 7.5 g/dL (6.3-8.2); Triglycerides 248 mg/dL (35-150)
[2023-06-17 17:43] LABS: Hep C Virus Ab w/Reflex Quant NEGATIVE s/c (NEGATIVE)
== END ==
PROVIDERS: PCP Family Medicine; Referring Provider Family Medicine; Visit Provider Family Medicine
DX: E78.2 Mixed hyperlipidemia (principal); R03.0 Elevated blood-pressure reading, without diagnosis of hypertension; Z11.59 Encounter for screening for other viral diseases
CPT/HCPCS: 36415; 80053; 80061; 86803

== ENCOUNTER → 2023-12-31 08:35 | Outpatient (CLI) | payer MEDICARE, SELFPAY ==
[2023-12-31 09:39] LABS: Cholesterol 215 mg/dL (140-199); HDL Cholesterol 53 mg/dL (40-60); LDL Cholesterol Calculated 106 mg/dL (<100); Triglycerides 282 mg/dL (35-150)
[2024-01-03 19:09] LABS: Interpretation Negative (Negative)
== END ==
PROVIDERS: PCP Family Medicine; Referring Provider Family Medicine; Visit Provider Family Medicine
DX: E78.2 Mixed hyperlipidemia (principal); K21.9 Gastro-esophageal reflux disease without esophagitis
CPT/HCPCS: 36415; 80061; 83013

== ENCOUNTER → 2024-03-07 11:06 | Outpatient (CLI) | payer MEDICARE, SELFPAY ==
--- NOTE | 2024-03-07 11:07 | DI.MG.S_ITS ---
BILATERAL DIGITAL SCREENING MAMMOGRAM 3D/2D WITH CAD: 03/07/2024 CLINICAL: Routine screening. Comparison is made to exams dated: 03/02/2023 mammogram, 01/12/2022 mammogram, 01/09/2021 mammogram, and 01/02/2020 mammogram - [facility]. There are scattered areas of fibroglandular density (category b / 25%-50% glandular tissue). Current study was also evaluated with a Computer Aided Detection (CAD) system. No significant masses, calcifications, or other findings are seen in either breast. There has been no significant interval change. IMPRESSION: NEGATIVE There is no mammographic evidence of malignancy. A 1 year screening mammogram is recommended. Based on the Tyrer Cuzick model (a risk assessment model) the patient's lifetime risk is 4.7% and her 10 year risk is 3.5%. According to the ACR, ACS, and NCCN guidelines, an annual breast MRI exam along with mammogram is recommended if the patient's lifetime risk is 20% or greater. This exam was interpreted at Station ID: [id number]. NOTE: For mammograms, a report in lay terms will be sent to the patient. Approximately 15% of breast malignancies will not be visualized mammographically. In the management of a palpable breast mass, a negative mammogram must not discourage biopsy of a clinically suspicious lesion. Electronically Signed By: Saurav armijo/maricarmen:03/07/2024 12:21:23 letter sent: Normal Exam ACR BI-RADS Category 1: Negative
== END ==
LOC: MAMMO 11:06
PROVIDERS: PCP Family Medicine; Referring Provider Family Medicine; Visit Provider Family Medicine
DX: Z12.31 Encounter for screening mammogram for malignant neoplasm of breast (principal)
CPT/HCPCS: 77063; 77067

== ENCOUNTER → 2024-07-24 09:49 | Outpatient (CLI) | payer OTHER, SELFPAY ==
[2024-07-24 10:56] LABS: Appearance Urine UA CLEAR; Bilirubin Urine UA NEGATIVE (NEGATIVE); Color Urine UA YELLOW; Glucose Urine UA NEGATIVE (Negative); Ketones Urine UA NEGATIVE (NEGATIVE); Leukocyte Esterase Urine UA NEGATIVE (NEGATIVE); Nitrite Urine UA NEGATIVE (Negative); Occult Blood Urine UA NEGATIVE (Negative); Protein Urine UA NEGATIVE (Negative); Specific Gravity Urine UA >=1.030 (1.000-1.035); Urobilinogen Urine UA 0.2 E.U./dL (0.2)
[2024-07-24 10:58] LABS: Urine Volume 10mL (spun)
[2024-07-24 10:59] LABS: Bacteria Urine None Seen; Culture Indicated Urine Cult Not Indicated; RBC Urine None Seen (0-5/HPF); Squamous Epithelial Cell Urine None Seen (0-5/HPF); WBC Urine None Seen (0-5/HPF)
[2024-07-24 11:11] LABS: Hematocrit 39.8 % (36-46); Hemoglobin 13.3 g/dL (12.0-16.0); Mean Corpuscular HGB Conc 33.5 % (30-36); Mean Corpuscular Hemoglobin 31.3 PG (26-34); Mean Corpuscular Volume 93.6 fL (80-100); Platelet Count 229 X10^3/uL (150-400); Red Blood Cell Count 4.25 X10^6/uL (4.0-5.2); Red Cell Distribution Width 13.4 % (11.6-14.8); White Blood Cell Count 5.1 X10^3/uL (4.5-11.0)
--- NOTE | 2024-07-24 11:13 | EKG_ITS ---
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
[2024-07-24 11:44] LABS: BUN Creatinine Ratio 28.2 (6-22); Blood Urea Nitrogen 20 mg/dL (7-17); Calcium 9.2 mg/dL (8.4-10.2); Carbon Dioxide 26 mmol/L (22-32); Chloride 104 mmol/L (98-107); Cholesterol 223 mg/dL (140-199); Estimated Glomerular Filt Rate > 60 mL/min (>60); Glucose 88 mg/dL (80-110); HDL Cholesterol 58 mg/dL (40-60); HEMOLYSIS < 15 (0-50); LDL Cholesterol Calculated 126 mg/dL (<100); Potassium 4.5 mmol/L (3.4-5.1); Sodium 139 mmol/L (137-145); Triglycerides 193 mg/dL (35-150)
== END ==
PROVIDERS: PCP Family Medicine; Referring Provider Orthopaedic Surgery; Visit Provider Orthopaedic Surgery
DX: Z01.812 Encounter for preprocedural laboratory examination (principal); Z01.818 Encounter for other preprocedural examination; E78.2 Mixed hyperlipidemia; R73.9 Hyperglycemia, unspecified; N39.0 Urinary tract infection, site not specified; Z13.228 Encounter for screening for other metabolic disorders; Z13.9 Encounter for screening, unspecified
CPT/HCPCS: 36415; 80048; 80061; 81001; 85027; 93005

== ENCOUNTER → 2024-11-14 13:41 | Outpatient (CLI) | payer OTHER, SELFPAY ==
--- NOTE | 2024-11-14 13:42 | DI.RAD.S_ITS ---
PROCEDURE: XR DEXA AXIAL SKELETON INDICATIONS: Bone density Test COMPARISON: [facility], CR, XR DEXA AXIAL SKELETON, 11/07/2021, 14:17. FINDINGS: Lumbar Spine: Bone mineral density 0.900 (previously 0.852) g/cm2, T score -1.2 (previously -1.7). Left Femoral Neck: Bone mineral density 0.605 (previously 0.617) g/cm2, T score -2.2 (previously -2.1). Left Hip: Bone mineral density 0.771 (previously 0.784) g/cm2, T score -1.4 (previously -1.3). Fracture Risk Calculation (when applicable): 10-year fracture risk of a major osteoporotic fracture 17 percent and of a hip fracture 4.7 percent. (T score greater or equal to -1.0 to: NORMAL) (T score from -1.1 to -2.4: OSTEOPENIA) (T score less than or equal to -2.5: OSTEOPOROSIS) IMPRESSION: Osteopenia--- recommend repeat DEXA in 2-3 years for reassessment. Follow-up guidelines as follows: Osteoporosis: Consider a repeat DEXA and Vertebral Fracture Assessment (VFA) exam in 2 years or sooner if medically necessary, to reassess this patient's status. Osteopenia: Consider a repeat DEXA in 2-3 years to reassess this patient's status, or if there is a new clinical indication. Normal: Consider a repeat DEXA in 5 years or sooner, or if there is a new clinical indication. All treatment decisions require clinical judgment and consideration of individual patient factors, including patient preferences, comorbidities, previous drug use, risk factors not captured in the FRAX model (e.g., frailty, falls, vitamin D deficiency, increased bone turnover, interval significant decline in bone density ) and possible under- or over-estimation of fracture risk by FRAX. In addition, the NOF Guide recommends that FDA-approved medical therapies be considered in postmenopausal women and men age >= 50 years with a: * Hip or vertebral (clinical or morphometric) fracture * T-score of <=-2.5 at the spine or hip * Ten-year fracture probability by FRAX of >= 3% for hip fracture or >=20% for major osteoporotic fracture. Dictated by: Raymond Sommers M.D. on 11/14/2024 at 18:50 Approved by: Raymond Sommers M.D. on 11/14/2024 at 18:54
== END ==
PROVIDERS: Family Provider Family Medicine; PCP Family Medicine; Referring Provider Family Medicine; Visit Provider Family Medicine
DX: M85.89 Other specified disorders of bone density and structure, multiple sites (principal)
CPT/HCPCS: 77080

== ENCOUNTER → 2024-12-05 10:22 | Outpatient (CLI) | payer OTHER, SELFPAY ==
[2024-12-05 11:25] LABS: Add Manual Diff / Slide Review NO; Hematocrit 39.3 % (36-46); Hemoglobin 13.3 g/dL (12.0-16.0); Lymphocytes Absolute Auto 1900 /uL (1100-4500); Mean Corpuscular HGB Conc 33.8 % (30-36); Mean Corpuscular Hemoglobin 31.6 PG (26-34); Mean Corpuscular Volume 93.5 fL (80-100); Platelet Count 201 X10^3/uL (150-400)
[2024-12-05 11:42] LABS: Hemoglobin A1C% w Est Avg Glu 5.5 % (4.0-6.0)
[2024-12-05 11:53] LABS: Albumin 4.6 g/dL (3.5-5.0); Blood Urea Nitrogen 20 mg/dL (7-17); Calcium 9.9 mg/dL (8.4-10.2); Carbon Dioxide 23 mmol/L (22-32); Chloride 106 mmol/L (98-107); Estimated Glomerular Filt Rate > 60 mL/min (>60); Glucose 100 mg/dL (70-99); HEMOLYSIS < 15 (0-50); Potassium 4.5 mmol/L (3.4-5.1); Sodium 138 mmol/L (137-145)
[2024-12-05 12:01] LABS: Prealbumin 31.4 mg/dL (17.6-36.0)
[2024-12-05 12:08] LABS: Vitamin D 25 Hydroxy (D3) 63.2 ng/mL (30.0-100.0)
== END ==
PROVIDERS: PCP Family Medicine; Referring Provider Family Medicine; Visit Provider Orthopaedic Surgery Adult Reconstructive Orthopaedic Surgery
DX: Z01.812 Encounter for preprocedural laboratory examination (principal)
CPT/HCPCS: 36415; 80048; 82040; 82306; 83036; 84134; 85025

== ENCOUNTER → 2024-12-05 11:28 | Outpatient (CLI) | payer OTHER, SELFPAY ==
--- NOTE | 2024-12-05 11:48 | EKG_ITS ---
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
== END ==
PROVIDERS: PCP Family Medicine; Referring Provider Family Medicine; Visit Provider Orthopaedic Surgery Adult Reconstructive Orthopaedic Surgery
DX: Z01.818 Encounter for other preprocedural examination (principal); Z01.812 Encounter for preprocedural laboratory examination
CPT/HCPCS: 36415; 80048; 82040; 82306; 83036; 84134; 85025; 93005

== ENCOUNTER 2025-01-29 08:17 | Day surgery (SDC) | payer OTHER, SELFPAY ==
[2025-01-11 09:38] VITALS: BMI 28.3
[2025-01-29] VITALS (11 sets, daily range): BP systolic 110–162; BP diastolic 53–92; PULSE 77–103; RESP 16–19; TEMP 36.2–36.6; O2SAT 94–98; BMI 27.8
--- NOTE | 2025-01-29 | DI.RAD.S_ITS ---
PROCEDURE: XR HIP W PEL IF DONE RT 2V INDICATIONS: RT HIP SURGERY TECHNIQUE: 9 intraoperative digital images of the right hip were acquired. COMPARISON: None. FINDINGS: Bones: There are no osseous abnormalities. SI and hip joints: Multiple digital images from the OR submitted. Final film shows right total hip prostheses in anatomic alignment. No complication Soft tissues: No soft tissue swelling, calcification or mass. IMPRESSION: Right total hip prosthesis in anatomic alignment. Dictated by: Sandip Potts M.D. on 01/30/2025 at 11:53 Approved by: Sandip Potts M.D. on 01/30/2025 at 11:54
--- NOTE | 2025-01-29 | DI.RAD.S_ITS ---
PROCEDURE: XR CHEST 1V INDICATIONS: aspiration after surgery TECHNIQUE: One view of the chest was acquired. COMPARISON: [facility], CR, XR CHEST 1V, 10/01/2021, 12:07. FINDINGS: Surgical changes and devices: Postsurgical changes are seen in included portion of cervical spine. Lungs and pleura: There is mild pulmonary vascular congestion. No definite focal infiltrate. No pleural effusions or pneumothorax. Mediastinum: Mediastinal contours appear normal. Heart size is enlarged. Bones and chest wall: No suspicious bony lesions. Overlying soft tissues appear unremarkable. IMPRESSION: No definite focal infiltrate. No pleural effusion or pneumothorax. Mild pulmonary vascular congestion. Dictated by: Yogi Carlton M.D. on 01/29/2025 at 14:57 Approved by: Yogi Carlton M.D. on 01/29/2025 at 15:01
[2025-01-29] MEDS: LACTATED RINGERS 1,000 ML 42 ML IV ×2 (09:39→13:29)
[2025-01-29] MEDS: ACETAMINOPHEN 325 MG TABLET 975 MG PO (09:39)
--- NOTE | 2025-01-29 11:01 | PM.PREOP ---
Pre-operative Note Interval Note History & Physical reviewed/Exam performed by Physician: Yes Changes to H&P: No
[2025-01-29] MEDS: TRANEXAMIC ACID 1,000 MG VIAL 2000 MG INJ ×2 (12:00→13:28)
--- NOTE | 2025-01-29 12:27 | SUR.OPER ---
Patient supine on padded [place] table, both arms on padded arm board at <90, both legs secured in padded traction boots and positioned per surgeon, padded post at patient's groin, pressure points checked and padded. Surgeon in room to assist with positioning and confirm final position.
[2025-01-29] MEDS: KETOROLAC 30 MG/ML VIAL 15 MG INJ (12:49)
--- NOTE | 2025-01-29 13:30 | P.OP_ITS ---
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 Right Uncemented Direct Anterior [place] Total Hip Arthroplasty (12192) 2. Computer-Assisted Musculoskeletal Surgical Navigational Orthopedic Procedure Using Fluoroscopic Image Guidance (0054T) Implants: * G7 PPS size 52 cup? * Z1 femoral stem size 5 high offset? * 36 mm -3.5 ceramic femoral head? Procedure Summary: This 74-year-old female patient had a T-score of-1.4 in her operative hip on her most recent DEXA scan, indicating bone quality of sufficient quality for me to anticipate using uncemented fixation. This did align with my intraoperative findings with her have an good bone quality. The hip was fairly tight and a conjoined tendon release was necessary in order to gain access to the femur for broaching. I utilized the trialed sizes for neck and head implants and had appropriate parameters fluoroscopically with good stability on trialing. I did upsized by 1 stem size after returning to evaluate the hip for final implant hardik cement as the size 4 broach was rotationally unstable. This did not change any of the parameters of the head or neck in this implants system so those definitive implants were placed and fluoroscopic analysis indicated reproduction of the leg length and offset that had been achieved during the trialing process. Procedure in Detail: This patient was seen preoperatively and evaluated for hip pain which was refractory to numerous nonoperative treatment modalities. Their hip pain correlated with radiographic changes demonstrating significant degeneration in the hip joint. The risks and benefits of continued nonoperative management versus operative management were discussed at length and all of the patient?s questions were answered. Additional educational materials providing further details beyond our discussion in clinic were provided via a publicly available patient education video which included the incidence of medical complications associated with total hip arthroplasty, reasons for revision following total hip arthroplasty, and patient satisfaction rates following total hip arthroplasty. With this understanding of the risks inherent to the procedure, the patient elected to move forward with operative management. Following preoperative optimization, the patient was scheduled for surgery. The patient was met in the preoperative holding area the day of the procedure and all questions were answered. The patient?s nares were swabbed in order to decolonize them from MRSA. Informed consent was signed and the right limb was marked with indelible ink.? The patient was brought back to the operating room where anesthesia was induced. The patient was transferred to the [place] table and all bony prominences were padded. The operative site was prepped and draped in the usual sterile fashion. Prior to incision, tranexamic acid and cefazolin were administered. Operative templating images were displayed demonstrating the anticipated implant sizes and correct operative extremity. A timeout procedure was performed verifying the patient?s identity, medical comorbidities, allergies, relevant medications, anesthesia type and the surgical plan. All present were in agreement. The assistance of a physician certified physician assistant was required for positioning, room setup, soft tissue retraction and wound closure. Without this assistance, the procedure would have been significantly more challenging and time consuming.?? A direct anterior approach to the hip was utilized. This was performed with a longitudinal incision through a Heuter interval. The incision was planned 2 cm distal and 2 cm lateral to the ASIS extending towards the lateral patella, in line with the muscle body of the TFL. Following incision, the subcutaneous tissue was dissected while taking care to avoid injury to the lateral femoral cutaneous nerve. The fascia overlying the TFL was identified by dissecting off the overlying fat and identifying perforating vessels to the TFL. The TFL fascia was incised and dissected away from the medial border of the TFL. A retractor was placed over the superior femoral neck between the abductors and the hip capsule and used to reflect the TFL laterally. A [place] self-retainer was then placed in the distal aspect of the wound between the TFL and the rectus femoris. This was tensioned to open up the direct anterior interval and the lateral circumflex vessels were identified and coagulated using electrocautery. The floor of the TFL fascia was incised, exposing the pericapsular fat overlying the hip capsule. A second cobra retractor was placed on the inferior femoral neck. A retractor was placed on the anterior wall of the acetabulum and used to tension the reflected head of rectus femoris, which was then released in order to limit soft tissue tension. A capsulotomy was made in the midline of the anterior hip capsule in line with the femoral neck ending at the vastus tubercle. The anterior retractor was removed as soon as the capsulotomy was completed in order to limit the amount of time that a soft tissue retractor remained on the anterior wall and limit tension on the femoral nerve. Tag stitches were placed in the superior and inferior leaflets of the hip capsule. An David soft tissue retractor was introduced over the tag stitches and tensioned in the interval between the rectus femoris and the TFL in order to retract and protect those muscles. The cobra retractors were replaced intracapsularly, with one over the superior neck in the pocket created by the base of the greater trochanter and the other on the femoral head. The capsulotomy was extended laterally to the base of the greater trochanter and medially to the lesser trochanter. This required externally rotating the hip. Once the lesser trochanter had been identified, a neck cut was planned according to measurements from preoperative templating. A ruler was cut at the length measured between the superior aspect of the lesser trochanter and the collar of the prosthesis. This line was extended towards the inferior aspect of the lateral cobra retractor to plan a cut which would leave minimal residual femoral neck laterally. The neck was cut at 60 degrees of external rotation along that line. A second cut was performed to remove a large napkin ring and facilitate head extraction. The napkin ring cut and femoral head were removed.?? A broad anterior wall retractor was placed between the labrum and the anterior capsule so that the anterior capsule would prevent capturing and pinching the femoral nerve anteriorly. An additional retractor was placed on the posterior wall. External rotation and traction were applied through the [place] table so that the cut surface of the femoral neck would not restrict access to the acetabulum. The labrum was excised sharply and the pulvinar was excised with electrocautery to limit bleeding from branches of the obturator artery. Acetabular reamers were selected based on preoperative templating and measurements of the excised femoral head. These were introduced into the acetabulum. Fluoroscopy was utilized to replicate a standing AP pelvis radiograph by centering over the pelvis, rotating until there was appropriate symmetry between the obturator foramen, and introducing caudal tilt to match the position of the pubic symphysis relative to the sacrococcygeal junction according to the patient?s anatomy. Once satisfied with the reaming depth corresponding to the preoperative template and the pinch fit between the columns, an appropriate sized acetabular cup was selected which would provide 1 mm of press-fit. This cup was introduced and manipulated until appropriate abduction and anteversion angles were obtained with careful attention to appropriate abduction and anteversion angles as evaluated by the position of the cup relative to the anterior and posterior bonilla of the acetabulum and the AP fluoroscopy which recreated the patient?s standing radiograph. The cup was impacted into place. Peripheral osteophytes were removed. The acetabular liner was then placed with care to ensure locking of the locking mechanism. Attention was then turned to the femur. All retractors were removed, traction was released, a retractor was placed in the interval between the hip capsule and the gluteus minimus. The lateral capsule was released using electrocautery. Traction was released and a [place] hook was placed posteriorly around the proximal femur at the level of the vastus ridge. The table height was lowered in order to restrict the tension on the anterior structures during hip hyperextension to limit the risk of femoral nerve palsy. With traction off and the hip at 90 degrees of external rotation, the hip was hyperextended and adducted while manually elevating the femur away from the acetabulum with the [place] hook to avoid hooking the greater trochanter on the pelvis. An asymmetric retractor was placed over the calcar and a broad double-pronged retractor was placed over the greater trochanter. The tag stitch capturing the lateral leaflet of the capsule was moved to the medial side, leaving the conjoined and piriformis tendons isolated in the face of the greater trochanter. The hip was externally rotated and elevated. A release of the conjoined tendon was necessary in order to obtain adequate exposure for broaching. The canal was opened with an opening broach and a rasp was used to remove cancellous bone. A rongeur was used to remove the residual lateral bone at the base of the greater trochanter to avoid placing the stem in varus. The femur was then broached to the appropriate sized stem yielding good rotational fit and fill of the canal as well as appropriate version of the stem trial. Neck and head trials were placed, all retractors were removed and the hip was returned to neutral abduction and extension. I then reduced the hip and manually trialed it before changing surgical gloves. Initial trialing was performed with a size 4 broach, a high offset neck and a - 3.5 head. I initially manually externally rotated the hip and found that I was unable to dislocate the hip. I then locked the hip in 45 degrees of external rotation and dropped it to the floor with traction off which demonstrated no instability. The [employer] software was used to create overlay images of the operative and nonoperative sides and analysis of this indicated that the operative side had slightly increased offset with equivalent leg lengths. The hip was dislocated and I returned to the broaching position. Based on my evaluation during initial trialing I planned to place a definitive implants. On inspection the size 4 broach was rotationally unstable so I broached with a size 5 implant down to the point at which the calcar planer had planed with the size [address]. This was now rotationally stable. The definitive stem was placed and the trunnion was cleaned and dried. I placed a ceramic head onto the trunnion and impacted it into place on the Ng taper.?? All retractors were removed and the hip was reduced. A dilute mixture of betadine and peroxide was used to bathe the soft tissues during final fluoroscopic assessment. Appropriate component positioning was confirmed on an AP pelvis radiograph with the operative and nonoperative legs in 40 degrees of external rotation, evaluating leg length and offset. Appropriate stem fill was evaluated on AP and lateral hip radiographs. No previously unrecognized fractures were identified on these radiographs. There was no hip instability with maximum (120?) external rotation as well as a 45 degree drop test. The hip was copiously irrigated with pulse lavage. The capsule was closed with absorbable interrupted suture. The TFL fascia was closed with barbed suture while carefully protecting the lateral femoral cutaneous nerve from entrapment. A mixture of Ropivacaine, Epinephrine and Toradol was infiltrated throughout the soft tissues. The skin was closed with 2-0 and 3-0 sutures. Surgical glue was applied and a soft dressing was placed.??The sponge, instrument and needle counts were reported as being correct at the end of the case.??No obvious complications occurred. The patient was transferred from the [place] table back to a stretcher. The patient emerged from anesthesia without difficulty and was taken to the PACU in a stable condition.? Plan for aftercare: * No hip precautions * Weightbearing as tolerated * Aspirin 81 twice per day for DVT prophylaxis * Anticipate discharge home today. [place] home so we will only discharge if we are able to reliably do so in time for her to make a [place]. * Multimodal pain regimen with no IV opioids ordered * Follow up at [facility] in 2 weeks Complications: none Post-operative Condition: stable Disposition: PACU
[2025-01-29] MEDS: ALBUTEROL/IPRATROPIUM 3 ML AMPUL INH (14:18)
--- NOTE | 2025-01-29 14:24 | DI.RAD.S_ITS ---
PROCEDURE: XR HIP W PEL IF DONE RT 2V INDICATIONS: surgery TECHNIQUE: AP pelvis and lateral view of the hip acquired. COMPARISON: [facility], CR, XR HIP W PEL RT 2V, 01/29/2025, 12:42. FINDINGS: Bones: Patient is status post right hip arthroplasty, with hardware components in expected positions. The hip joint appears congruent. The visualized bony structures appear intact. Soft tissues: Overlying postoperative changes are noted. No suspicious soft tissue densities. IMPRESSION: Expected post-operative appearance of a hip arthroplasty. Dictated by: Yogi Carlton M.D. on 01/29/2025 at 14:43 Approved by: Yogi Carlotn M.D. on 01/29/2025 at 14:44
[2025-01-29] MEDS: LACTATED RINGERS 1,000 ML 100 ML IV (15:30)
[2025-01-29] MEDS: ACETAMINOPHEN 325 MG TABLET 650 MG PO ×2 (16:34→20:31)
--- NOTE | 2025-01-29 17:04 | PT.IIE ---
Current Diagnoses Unilateral primary osteoarthritis, right hip (01/29/25) Surgery Performed Operation Date: 01/29/25 10:45 Actual Procedures p Total Hip Arthroplasty/Anterior Approach(Right) - Jas Hammond MD Surgical History (Last Updated 08/11/24 @ 19:08 by Huy Singh MD) History of appendectomy (05/02/11) History of cervical spinal arthrodesis (03/06/16) Hx of cervical discectomy (Unknown) [place] teeth removed Medical History (Last Updated 01/11/25 @ 10:32 by Emilie Evans RN) Allergic rhinitis (Unknown) Angina at rest Arthralgia Carpal tunnel syndrome (Unknown) Chronic fatigue (11/07/15) Chronic vasomotor rhinitis DJD (degenerative joint disease) of cervical spine (Unknown) Gastroesophageal reflux disease (06/05/16) GERD (gastroesophageal reflux disease) (Unknown) Hearing loss (06/10/17) Hyperlipemia (Unknown) Migraines (Unknown) Mixed hyperlipidemia (04/11/15) Osteopenia (04/11/15) Osteoporosis (Unknown) Other seasonal allergic rhinitis (04/11/15) Paresthesia of upper extremity (10/08/16) Persistent postural-perceptual dizziness (Unknown) Psoriasis (Unknown) Sacroiliac joint pain (06/10/17) Torn meniscus Vertigo (03/06/16) Weakness of both hips (11/07/15) Weakness of shoulder (11/07/15) Physical Therapy Inpatient Evaluation/Re-Eval M1 PT/OT-IP Prior Functional Status Start: 01/29/25 16:56 Freq: NEEDED Status: Active Protocol: Document 01/29/25 16:56 [facility] (Rec: 01/29/25 17:04 [facility] [id number]) Medical Review Prior Functional Status Medical History Yes Reviewed Diet/Fluid Regular Consistency Communication WNL Mobility and Gait Indep w/o AD, notes was limping Activities of Daily indep with all and drives and cooks/cleans, occ had Living and IADL's help w/sock/shoe d/t pain Social History Household Members spouse Living Arrangements House Number of Floors ( Two Floors Floors) Number of Stairs To 3 stairs with railing to enter. Main floor living Enter/Railing? except shower upstairs Home Environment Standard Height Toilet,Tub/Shower Home Equipment Front Wheel Walker,Straight Cane,Raised Toilet Seat w/ Armrests,Shower Seat without Backrest,Medicaid [place] M2 PT-IP Current Condition Start: 01/29/25 16:56 Freq: NEEDED Status: Active Protocol: Document 01/29/25 16:56 [facility] (Rec: 01/29/25 17:04 [facility] [id number]) Physical Therapy Current Condition Current Condition Evaluation Date 01/29/25 Treatment Diagnosis R ant BROWN M3 PT-IP Subjective Start: 01/29/25 16:56 Freq: NEEDED Status: Active Protocol: Document 01/29/25 16:56 [facility] (Rec: 01/29/25 17:04 [facility] [id number]) Subjective Physical Therapy Visit Type Type Initial Evaluation Visit Start Time 16:00 Visit Stop Time 16:55 Number of FABRICATION ENGINEER Visits 0 Physical Therapy Visit Comments Patient Comments Pt motivated to work with PT Therapy Pain Assessment Pain When Pain Assessed During Mobility Pain Present Pain Present Pain Reported Location R hip Pain Management Apply Cold Techniques M4 PT-IP Mobility and Gait Start: 01/29/25 16:56 Freq: NEEDED Status: Active Protocol: Document 01/29/25 16:56 [facility] (Rec: 01/29/25 17:04 [facility] [id number]) PT-Bed Mobility Assessment Supine to Sit Supine to Sit Standby Assistance Scooting Scooting to Edge of Standby Assistance Bed PT-Transfer Assessment Sit to and From Stand Sit to and from Standby Assistance,Use of Upper Extremities Stand Equipment Transfer Assistive Gait Belt,Front Wheeled Walker Device Orthotic/Prosthetic No Devices or Brace: Gait Assessment Gait Gait Assistance Standby Assistance Required: Distance (Feet) 55 Assistive Devices Assistive Device Front Wheeled Walker Orthotic/Prosthetic No Devices or Brace: Gait Deviations General Gait Pattern Antalgic,Decreased Stride Length,Step-to Gait Factors Limiting Gait Function Factors Limiting Decreased Activity Tolerance,Decreased Strength,Pain Gait Function Comments Gait Comments supine to sit with cues (supine BP 123/78, seated 138/ 66) and scooted to EOB with cues, sit to stand FWW SBA then amb in room about 40ft then to rest room and was able to sit to stand from toilet SBA and wipe indep. Amb to sink to wash hands SBA w/cues to keep walker in front at sink them amb to chair w/FWW SBA. Pt sat in chair and left with call light in reach and edu to call for assist w/mobility. Stair Climbing Assessment Comments Stair Climbing n/t Comments PT-Balance Assessment Sitting Balance and Reactions Static Sitting Normal Balance Ability Dynamic Sitting Normal Balance Ability Standing Balance and Reactions Static Standing Good Balance Ability Dynamic Standing Good Balance Ability Device Used FWW M5 PT-IP Objective Assessments Start: 01/29/25 16:56 Freq: NEEDED Status: Active Protocol: Document 01/29/25 16:56 [facility] (Rec: 01/29/25 17:04 [facility] [id number]) Orientation Orientation/Cognition Level of Alertness Alert Language Function No Deficits Noted Ability Safety Awareness Understands Safety Issues Memory Description No Deficits Noted Gross Range of Motion Lower Extremity ROM Assessment Right Impaired M6 PT-IP Treatment Start: 01/29/25 16:56 Freq: NEEDED Status: Active Protocol: Document 01/29/25 16:56 [facility] (Rec: 01/29/25 17:04 [facility] [id number]) Physical Therapy Treatment Exercises Exercises Ankle Pumps,Gluteal Sets,Quad Sets,Heel Slides Education Education Provided Weight Bearing Status,Post-Op Packet,Safety M7 PT-IP Assessment and Plan Start: 01/29/25 16:56 Freq: NEEDED Status: Active Protocol: Document 01/29/25 16:56 [facility] (Rec: 01/29/25 17:04 [facility] [id number]) PT Summary Assessment and Plan Potential Rehabilitation Excellent Potential Status of Condition Evolving at Evaluation Summary Impairments Pain,ROM,Strength,Bed Mobility,Transfers,Gait,Activity Tolerance Assessment Summary Pt presents day of surgery RTHA with overall good pain control. Pt notes some dizziness/feeling disoriented, but that improves w/mobility. She did well with initial mobility and is able to help further at home as needed. Pt does well with exercises today w/cues. Would benefit from skilled PT to work on stairs and gait mechanics prior to going home. Amb mostly step to d/t pain/dec stability but does improve more to step through throughout session. Goals Bed Mobility Goal Independent Transfer Goal Independent Gait Goal Independent,Front Wheel Walker Gait Distance 125ft Other Goals up/down 3 stairs w/rail SBA Days to Meet Goals 5 Frequency of Treatment Frequency Of Twice a Day Treatment Treatment Plan Physical Therapy Bed Mobility Training,Transfer Training,Gait Training, Treatment Plan Therapeutic Exercise,Balance Retraining,Neuromuscular Re-ed,Manual Therapy Other gait mechanics, stairs Recommendations and Next Treatment Focus Precautions Other Precautions none Weight Bearing Status Weight Bearing Weight Bear as Tolerated Status Recommendations To Nursing Amount of Assist 1 Person Assist Needed Discharge Recommendations PT Discharge Home with Assistance,Outpatient PT Recommendations Transportation Needs Private Vehicle at Discharge - PT assist 1
--- NOTE | 2025-01-29 18:02 | P.PN_ITS ---
Subjective Subjective Interval history: I came by to check on Debbie in her hospital room. She is resting comfortably not on supplemental oxygen eating her dinner. She reports she has no significant pain. She had a small aspiration event but appears to be suffering no untoward complications related to that[place] her to stay overnight for monitoring of her respiratory status to ensure that this continues to be the case and get her a respiratory therapy session in the morning before she departs. She is doing well with respect to her hip. She has intact plantar flexion and dorsiflexion of the hallux and ankle and intact extension of her knee indicative of intact sciatic and femoral nerves. She has a well-perfused foot. Her dressing is clean dry and intact. Exam Vital Signs (past 8 hours): - 01/29/25 14:10 01/29/25 14:15 01/29/25 14:20 Temperature 97.2 F L 97.2 F L Pulse Rate 87 88 84 Respiratory Rate 16 16 16 Blood Pressure 121/77 120/70 110/60 Pulse Oximetry 96 98 98 Oxygen Delivery Method Room Air Room Air Room Air 01/29/25 14:25 01/29/25 14:40 01/29/25 15:00 Temperature 97.2 F L 97.2 F L 97.5 F L Pulse Rate 84 77 90 Respiratory Rate 16 16 16 Blood Pressure 129/70 111/70 115/57 L Pulse Oximetry 95 97 97 Oxygen Delivery Method Room Air Room Air 01/29/25 15:30 01/29/25 16:00 Temperature 97.7 F 97.9 F Pulse Rate 82 83 Respiratory Rate 17 19 Blood Pressure 125/53 L 118/92 H Pulse Oximetry 97 97 Oxygen Delivery Method Oxygen Delivery Method Room Air [facility] Medical History (Updated 01/11/25 @ 10:32 by Emilie Evans RN) Chronic vasomotor rhinitis Torn meniscus Angina at rest Arthralgia Persistent postural-perceptual dizziness (Unknown) GERD (gastroesophageal reflux disease) (Unknown) DJD (degenerative joint disease) of cervical spine (Unknown) Migraines (Unknown) Osteoporosis (Unknown) Hyperlipemia (Unknown) Psoriasis (Unknown) Carpal tunnel syndrome (Unknown) Allergic rhinitis (Unknown) Sacroiliac joint pain (06/10/17) Hearing loss (06/10/17) Paresthesia of upper extremity (05/18/17) Gastroesophageal reflux disease (06/05/16) Vertigo (03/06/16) Weakness of both hips (11/07/15) Weakness of shoulder (11/07/15) Chronic fatigue (11/07/15) Other seasonal allergic rhinitis (04/11/15) Osteopenia (04/11/15) Mixed hyperlipidemia (04/11/15) Surgical History (Updated 08/11/24 @ 19:08 by Huy Singh MD) [place] teeth removed History of appendectomy (05/02/11) History of cervical spinal arthrodesis (03/06/16) Hx of cervical discectomy (Unknown) Family History (Updated 06/15/23 @ 11:48 by Huy Singh MD) Father Congestive heart failure Diabetes mellitus Heart disease Dementia Mother Loud snoring Obesity Hypertension Depression Brain aneurysm Grandfather No problems noted. Grandmother Cancer Family/Other Sleep apnea Hypertension Diabetes mellitus Anxiety Social History (Updated 08/22/24 @ 11:57 by Conchis Dean CMA) marital status: number of children: 0 household members: spouse lives independently: Yes housing: house pets and animals: No education level: college occupational status: other current occupational exposures/hazards: No leisure activities: volunteer work seatbelt use: always do you feel safe at home: Yes Smoking Status: Never smoker alcohol intake: current substance use type: does not use during the past year weight has: remained stable well-balanced diet: daily or most days daily servings fruits/ve-4 caffeine: No (Quit coffee in July 2024) eating out: 1-3 times/week Type(s) of exercise: sedentary lifestyle Assessment & Plan Post-op Postoperative Procedures: Procedures Operation Date: 01/29/25 10:45 Actual Procedure Side Surgeon p Total Hip Arthroplasty/Anterior Approach Right Jas Hammond MD Quality VTE Deep Vein Thrombosis/Pulmonary Embolism Present on Admission: No
[2025-01-29] MEDS: DOCUSATE 100 MG CAPSULE PO (20:31)
[2025-01-30] MEDS: LACTATED RINGERS 1,000 ML 100 ML IV (01:30)
[2025-01-30 02:00] VITALS: BP 137/59; PULSE 80; RESP 16; TEMP 36.5; O2SAT 97
[2025-01-30] MEDS: ACETAMINOPHEN 325 MG TABLET 650 MG PO ×2 (04:41→09:55)
[2025-01-30] MEDS: ONDANSETRON 4 MG ODT PO (05:26)
[2025-01-30 06:14] LABS: Add Manual Diff / Slide Review NO; Hematocrit 32.6 % (36-46); Hemoglobin 11.1 g/dL (12.0-16.0); Lymphocytes Absolute Auto 1100 /uL (1100-4500); Mean Corpuscular HGB Conc 34.2 % (30-36); Mean Corpuscular Hemoglobin 32.3 PG (26-34); Mean Corpuscular Volume 94.3 fL (80-100); Platelet Count 166 X10^3/uL (150-400)
[2025-01-30 06:25] LABS: Blood Urea Nitrogen 13 mg/dL (7-17); Calcium 8.4 mg/dL (8.4-10.2); Carbon Dioxide 22 mmol/L (22-32); Chloride 105 mmol/L (98-107); Estimated Glomerular Filt Rate > 60 mL/min (>60); Glucose 131 mg/dL (70-99); HEMOLYSIS < 15 (0-50); Potassium 3.8 mmol/L (3.4-5.1); Sodium 135 mmol/L (137-145)
--- NOTE | 2025-01-30 07:18 | P.DS_ITS ---
History of Present Illness History of Present Illness Date Patient Seen: 01/30/25 Chief complaint: Right BROWN *OPB* Narrative: 74 presented to [facility] on 01/29/25 for planned primary right anterior total hip arthroplasty by Dr. Hammond. ?This elective procedure was indicated by chronic right hip arthritis limiting her normal activities of enjoyment and living. ?On the date of surgery there were no changes to the medical history, medications or allergies. ?Consent had been obtained and the patient was in agreement to proceed with planned surgery. Discharge Providers Provider Discharge Date: 01/30/25 Primary care physician: Huy Singh MD Consults: 01/29/25 15:40 Consult to Discharge Planning Routine Comment: Consult to Occupational Therapy Evaluate & Treat Comment: No hip precautions Physician Instructions: Evaluate and treat Consult to Physical Therapy Evaluate & Treat Comment: No hip precautions Physician Instructions: Evaluate and Treat Discharge provider: YVROSE [address] Dr Summary Hospital Course Discharge Diagnosis: Right total hip arthroplasty Hospital Course: On 01/29/25 the patient was brought to the operating room for planned primary right total hip arthroplasty by Dr Hammond.? There were no known intraoperative complications.? During her recovery she aspirated gastric contents which were suctioned. A chest x-ray was obtained in PACU which did not show a pulmonary infiltrate. Later the patient was transferred to the acute care unit [facility] for monitoring overnight and physical therapy.? There were no acute events overnight.? On postoperative day 1, the patient's vital signs were stable, hemoglobin was stable at 11.1 and she was making urine spontaneously.? The patient denied chest pain, dyspnea, nausea and emesis on postoperative day 1.? The patient was awaiting physical therapy evaluation during orthopedic rounds.? Pain was well-controlled on oral analgesics and the patient was in agreement with preoperative plan to discharge home on postoperative day 1. She was counseled to monitor for signs on aspiration pneumonia including fever, chills, night sweats, chest pain, cough and dyspnea. Respiratory therapy evaluation was also ordered. Exam Vital Signs (past 8 hours): - 01/30/25 02:00 Temperature 97.7 F Pulse Rate 80 Respiratory Rate 16 Blood Pressure 137/59 L Pulse Oximetry 97 Oxygen Flow Rate 0 Oxygen Delivery Method Room Air Oxygen Flow Rate 0 Narrative Exam Narrative: well developed, well nourished, 74 year old female, no acute distress, pleasance Dressing is dry and intact to right hip without ecchymosis, drainage or hematoma formation Objective Labs 01/30/25 05:22 01/30/25 05:22 Labs: Laboratory Results - last 24 hr 01/30/25 05:22 WBC 10.7 RBC 3.46 L Hgb 11.1 L Hct 32.6 L MCV 94.3 MCH 32.3 MCHC 34.2 RDW 13.1 Plt Count 166 Neut % (Auto) 84.8 H Lymph % (Auto) 9.9 L [place] % (Auto) 5.1 Eos % (Auto) 0.0 L Baso % (Auto) 0.2 Neut # (Auto) 9000 H Lymph # (Auto) 1100 [place] # (Auto) 500 Eos # (Auto) 0 Baso # (Auto) 0 Sodium 135 L Potassium 3.8 Chloride 105 Carbon Dioxide 22 BUN 13 Creatinine 0.65 Estimated GFR > 60 BUN/Creatinine Ratio 20.0 Glucose 131 H Calcium 8.4 PFSH Medical History (Updated 01/11/25 @ 10:32 by Emilie Evans RN) Chronic vasomotor rhinitis Torn meniscus Angina at rest Arthralgia Persistent postural-perceptual dizziness (Unknown) GERD (gastroesophageal reflux disease) (Unknown) DJD (degenerative joint disease) of cervical spine (Unknown) Migraines (Unknown) Osteoporosis (Unknown) Hyperlipemia (Unknown) Psoriasis (Unknown) Carpal tunnel syndrome (Unknown) Allergic rhinitis (Unknown) Sacroiliac joint pain (06/10/17) Hearing loss (06/10/17) Paresthesia of upper extremity (10/08/16) Gastroesophageal reflux disease (06/05/16) Vertigo (03/06/16) Weakness of both hips (11/07/15) Weakness of shoulder (11/07/15) Chronic fatigue (11/07/15) Other seasonal allergic rhinitis (04/11/15) Osteopenia (04/11/15) Mixed hyperlipidemia (04/11/15) Surgical History (Updated 08/11/24 @ 19:08 by Huy Singh MD) [place] teeth removed History of appendectomy (05/02/11) History of cervical spinal arthrodesis (03/06/16) Hx of cervical discectomy (Unknown) Family History (Updated 06/15/23 @ 11:48 by Huy Singh MD) Father Congestive heart failure Diabetes mellitus Heart disease Dementia Mother Loud snoring Obesity Hypertension Depression Brain aneurysm Grandfather No problems noted. Grandmother Cancer Family/Other Sleep apnea Hypertension Diabetes mellitus Anxiety Social History (Updated 08/22/24 @ 11:57 by Conchis Dean [facility]) marital status: number of children: 0 household members: spouse lives independently: Yes housing: house pets and animals: No education level: college occupational status: other current occupational exposures/hazards: No leisure activities: volunteer work seatbelt use: always do you feel safe at home: Yes Smoking Status: Never smoker alcohol intake: current substance use type: does not use during the past year weight has: remained stable well-balanced diet: daily or most days daily servings fruits/ve-4 caffeine: No (Quit coffee in July 2024) eating out: 1-3 times/week Type(s) of exercise: sedentary lifestyle Discharge Assessment & Plan Assessment and Plan Assessment: 74 year old female with a past medical history of GERD, migraines and psoriasis is post operative day 1 from a primary right anterior total hip arthroplasty by Dr. Hammond at [facility] on 01/29/25. The patient is recovering well with appropriate pain control on oral analgesics and is awaiting evaluation by physical therapy and respiratory therapy with plan for discharge home today.? Plan:? * Weightbearing as tolerated to right lower extremity with front wheeled walker? * No hip precautions? * DVT prophylaxis with 81 mg of aspirin twice daily for 6 weeks * Continue multimodal analgesia with Tylenol, ibuprofen, tramadol and oxycodone? as needed * Bowel regimen as needed? * Physical therapy evaluation and treatment today?for planned discharge home * Follow up with orthopedics 2 weeks post operatively? * All post operative medications ordered at pre operative visit? * Ice to surgical site as needed? * Respiratory therapy evaluation today given aspiration post operatively Discharge Plan Discharge Plan Patient Disposition: Home Discharge orders & Medications Discharge Orders: Discharge (Order); Ordered 01/30/25 Ordered By: Hailee Whitfield Prescriptions: Continued omega 7-yiu-ttu-fish oil [Fish Oil] 1,200 (144-216) mg capsule PO [MAGNESIUM] Qty: 0 [CALCIUM] 1,000 mg PO DAILY Qty: 0 clobetasol 0.05 % lotion 1 applic TOP BID PRN (Reason: Psoriasis) Qty: 118 5RF acetaminophen [Acetaminophen Extra Strength] 500 mg tablet 1,000 mg PO TID PRN (Reason: Pain.) Centrum Silver Women 8 mg iron-400 mcg-50 mcg tablet 1 tab PO DAILY cholecalciferol (vitamin D3) [Vitamin D3] 50 mcg (2,000 unit) capsule 50 mcg PO DAILY docusate sodium [Colace] 100 mg capsule 100 mg PO BID PRN (Reason: constipation) Qty: 60 0RF aspirin 81 mg tablet,delayed release (DR/EC) 81 mg PO BID 45 Days Qty: 90 0RF ondansetron 4 mg tablet,disintegrating 4 mg PO Q8H PRN (Reason: nausea and vomiting) Qty: 7 0RF oxycodone 5 mg tablet 5 mg PO Q6H PRN (Reason: pain) Qty: 25 0RF Follow up/Referrals: Huy Singh MD [Primary Care Provider, Family Practice] Jas Hammond MD [Physician, Orthopedic Surgery] Diet/Activity/Treatments Diet: Diet as Tolerated and Low-sodium Activity: Weight bearing as tolerated to the right hip with front wheeled walker No hip precautions Limit your steps to no more than 1000 steps per day in the first week after surgery Cold/Heat Therapy: Ice to right hip throughout the day with breaks Other treatments: Monitor for fever, chills, chest pain, trouble breathing, cough and signs of infection concerning for pneumonia Call our office if you notice these symptoms Skin/Wound/Dressing Care Report to your healthcare provider any signs of infection, such as:: chills, fever, night sweats and unusual drainage Dressing: Leave waterproof dressing in place to right hip You may shower with the dressing in place If the dressing becomes saturated or disrupted call the office for further guidance Visit Report/Discharge Packet Instructions: DI for Hip Replacement, DI for Prescription Opioid Use Stand Alone Forms: Patient Portal/API Print Language: Nigerien Discharge Data Primary Care Provider: Huy Singh Attending Provider: Jas Hammond Quality VTE Deep Vein Thrombosis/Pulmonary Embolism Present on Admission: No IH PROFEE Charge Codes Discharge inpatient/observation: [id number]
[2025-01-30 08:30] VITALS: BP 98/73; PULSE 91; RESP 9; TEMP 36.4; O2SAT 96
--- NOTE | 2025-01-30 09:31 | OT.IP.EVAL ---
Current Diagnoses Unilateral primary osteoarthritis, right hip (01/29/25) Surgery Performed Operation Date: 01/29/25 10:45 Actual Procedures p Total Hip Arthroplasty/Anterior Approach(Right) - Jas Hammond MD Past Medical History (Last Updated 01/11/25 @ 10:32 by Emilie Evans RN) Allergic rhinitis (Unknown) Angina at rest Arthralgia Carpal tunnel syndrome (Unknown) Chronic fatigue (11/07/15) Chronic vasomotor rhinitis DJD (degenerative joint disease) of cervical spine (Unknown) Gastroesophageal reflux disease (06/05/16) GERD (gastroesophageal reflux disease) (Unknown) Hearing loss (06/10/17) Hyperlipemia (Unknown) Migraines (Unknown) Mixed hyperlipidemia (04/11/15) Osteopenia (04/11/15) Osteoporosis (Unknown) Other seasonal allergic rhinitis (04/11/15) Paresthesia of upper extremity (10/08/16) Persistent postural-perceptual dizziness (Unknown) Psoriasis (Unknown) Sacroiliac joint pain (06/10/17) Torn meniscus Vertigo (03/06/16) Weakness of both hips (11/07/15) Weakness of shoulder (11/07/15) Surgical History (Last Updated 08/11/24 @ 19:08 by Huy Singh MD) History of appendectomy (05/02/11) History of cervical spinal arthrodesis (03/06/16) Hx of cervical discectomy (Unknown) [place] teeth removed Occupational Therapy Inpatient Evaluation/Re-Eval M1 PT/OT-IP Prior Functional Status Start: 01/29/25 16:56 Freq: NEEDED Status: Active Protocol: Document 01/30/25 09:22 [facility] (Rec: 01/30/25 09:31 [facility] Desktop) Medical Review Prior Functional Status Medical History Yes Reviewed Diet/Fluid Regular Consistency Communication WNL Mobility and Gait Indep w/o AD, notes was limping Activities of Daily indep with all and drives and cooks/cleans, occ had Living and IADL's help w/sock/shoe d/t pain Social History Household Members spouse Living Arrangements House Number of Floors ( Two Floors Floors) Number of Stairs To 3 stairs with railing to enter. Main floor living Enter/Railing? except shower upstairs Home Environment Standard Height Toilet,Tub/Shower Home Equipment Front Wheel Walker,Straight Cane,Raised Toilet Seat w/ Armrests,Shower Seat without Backrest,Children'S Literature Professor M2 OT-IP Current Condition Start: 01/30/25 09:22 Freq: Status: Active Protocol: Document 01/30/25 09:22 [facility] (Rec: 01/30/25 09:31 [facility] Desktop) Occupational Therapy Current Condition Current Condition Evaluation Date 01/30/25 Treatment Diagnosis S/P R BROWN Diagnosis Onset Date 01/29/25 M3 OT- IP Subjective and Pain Start: 01/30/25 09:22 Freq: Status: Active Protocol: Document 01/30/25 09:22 [facility] (Rec: 01/30/25 09:31 [facility] Desktop) OT- Subjective Occupational Therapy Visit Type Type Initial Evaluation Visit Start Time 08:55 Visit Stop Time 09:23 Occupational Therapy Visit Comments Patient Comments Pt agreed to use the toilet and get dressed and not wanting to shower at this time. Patient/Caregiver TO go home. Goals OT Pain Assessment Pain When Pain Assessed During Mobility Pain Present Pain Present Pain Reported Location R hip Intensity 4 Scale Used Numeric (0 - 10) M4 OT- IP ADL's Start: 01/30/25 09:22 Freq: Status: Active Protocol: Document 01/30/25:22 [facility] (Rec: 01/30/25 09:31 [facility] Desktop) OT DCA-Qjxf-Cbrhola General Evaluation Self-Feeding Ability Independent OT ADL-Grooming Comments OT Grooming Comments Pt able to wash her hands at the sink. OT ADL-Oral Care Comments Oral Care Comments Pt refused. OT ADL-Dressing General Eval Upper Body Dressing Independent Ability Lower Body Dressing Moderate Assistance Ability Areas Needing Pants/Shorts,Socks,Shoes Assistance Comments OT Dressing Comments Able to practice use of director product safety and sock aid. Educated to kavya her LLE first and take out last. OT ADL-Toileting Comments OT Toileting If needed suggested to wear pad so not having to hurry Comments to the bathroom at night. OT ADL-Bathing Comments OT Bathing Comments Spoke of care for bandage while showering. M5 OT- IP IADL's Start: 01/30/25 09:22 Freq: Status: Active Protocol: Document 01/30/25 09:22 [facility] (Rec: 01/30/25 09:31 [facility] Desktop) OT-Instrumental Activities of Daily Living Home Safety Awareness Awareness of Need Good Awareness for Assistance at Home Ability to Problem Able to Problem Solve Solve Emergency Situations Medication Management Medication No Deficits Identified Management Money Management Money Management No Deficits Identified Meal Preparation Meal Preparation Pt's to assist. Comments Curriculum Designer Curriculum Designer Pt's to assist. Comments M6 OT- IP Functional Cognition Start: 01/30/25 09:22 Freq: Status: Active Protocol: Document 01/30/25 09:22 [facility] (Rec: 01/30/25 09:31 [facility] Desktop) Cognitive Factors Limiting Selfcare Function Cognitive Ability Level of Alertness Alert Patient Orientation Name,Age,Birthday,Month,Date,Year,Day of Week,Place, Situation Attention Span Capable of Focused Attention,Capable of Sustained Ability Attention Ability to Follow Able to Follow One Step Commands Commands Safety Awareness Underestimates Need for Assistance Cognitive Comments Cognitive Assessment Pt able to follow commands for ADL and mobility needs. Comments Pt needing reminders to push up and reach back to surfaces prior to standing and sitting down. VC not to push on the FWW to stand. VC to keep the FWW in front of her. OT- Vision and Hearing OT- Hearing Assessment OT- Hearing Hearing Impaired,Use of Hearing Aids Assessment OT- Vision Assessment Visual Acuity Glasses For Reading Visual Attentiveness WFL Occular Pursuits WFL M7 OT- IP Mobility and Balance Start: 01/30/25 09:22 Freq: Status: Active Protocol: Document 01/30/25 09:22 [facility] (Rec: 01/30/25 09:31 [facility] Desktop) OT- Bed Mobility Assessment Supine to Sit Supine to Sit Assist Minimal Assistance OT-Transfer Assessment Sit to and From Stand Sit to and from Contact Guard Assistance Stand Transfers Transfer Ability Standby Assistance Technique Transfer Destination Bed,Chair,Toilet Transfer Technique Stand Step Pivot Devices Transfer Assistive Gait Belt,Front Wheeled Walker Devices Comments Mobility Comments Assist to help get her RLE and trunk upright. CGA to stand with the FWW. VC to slide the FWW versus picking it up. OT- Balance Assessment Sitting Balance and Reactions Static Sitting Normal Balance Ability Dynamic Sitting Good Balance Ability Standing Balance and Reactions Static Standing Good Balance Ability Dynamic Standing Fair Balance Ability M8 OT- IP Objective Assessments Start: 01/30/25 09:22 Freq: Status: Active Protocol: Document 01/30/25 09:22 [facility] (Rec: 01/30/25 09:31 [facility] Desktop) OT Gross Range of Motion Upper Extremity Range of Motion Assessment Within Functional Limits OT Strength Upper Extremity Strength Assessment Within Functional Limits M9 OT- IP Assessment and Plan Start: 01/30/25 09:22 Freq: Status: Active Protocol: Document 01/30/25 09:22 [facility] (Rec: 01/30/25 09:31 [facility] Desktop) OT Summary Assessment and Plan Potential Rehabilitation Excellent Potential Analytic Complexity Low at Evaluation Summary OT Impairments Pain,Balance,Functional Mobility,Dressing,Toileting, Bathing,Toilet Transfers,Shower Transfers Progress Towards Progressing Toward Goals Goals Assessment Summary Pt low complexity and main barriers are steps, will need assist or obtaining LB dressing equipment for dressing needs, and needing safety cues to push up and reach back to surfaces prior to standing and sitting down. Pt to go home with her and go to outpt PT . Goals Dressing Goal Independent,Children'S Literature Professor,Sock Aid Toileting Goal Independent Bathing Goal Independent Toilet Transfer Goal Independent Shower Transfer Goal Contact Guard Assistance Days to Meet Goals 5 Frequency of Treatment Other frequency 5x/week Treatment Plan OT Treatment Plan ADL Training,Functional Mobility,Patient/Family Education,Discharge Planning Discharge Recommendations OT Discharge Home with Assistance,Outpatient PT Recommendations Home Equipment Needs Sock aid Transportation Needs Private Vehicle at Discharge
--- NOTE | 2025-01-30 09:45 | PT.IPTN ---
Current Diagnoses Unilateral primary osteoarthritis, right hip (01/29/25) Surgery Performed Operation Date: 01/29/25 10:45 Actual Procedures p Total Hip Arthroplasty/Anterior Approach(Right) - Jas Hammond MD Physical Therapy Treatment Note M2 PT-IP Current Condition Start: 01/29/25 16:56 Freq: NEEDED Status: Discharge Protocol: Document 01/29/25 16:56 [facility] (Rec: 01/29/25 17:04 [facility] [id number]) Physical Therapy Current Condition Current Condition Evaluation Date 01/29/25 Treatment Diagnosis R ant BROWN M3 PT-IP Subjective Start: 01/29/25 16:56 Freq: NEEDED Status: Discharge Protocol: Document 01/30/25 09:45 AB (Rec: 01/30/25 12:59 AB [id number]) Subjective Physical Therapy Visit Type Type Treatment Note Visit Start Time 09:45 Visit Stop Time 10:35 Number of SCIENTIFIC SYSTEMS ANALYST Visits 0 Physical Therapy Visit Comments Patient Comments agreeable to do PT Therapy Pain Assessment Pain When Pain Assessed At Rest Pain Present Pain Present Pain Reported Location R hip Intensity 6 Scale Used Numeric (0 - 10) Pain Management Distraction,Modification of Treatment,Re-positioning, Techniques Timing of Activity with Medications M4 PT-IP Mobility and Gait Start: 01/29/25 16:56 Freq: NEEDED Status: Discharge Protocol: Document 01/30/25 09:45 AB (Rec: 01/30/25 12:59 AB [id number]) PT-Bed Mobility Assessment Supine to Sit Supine to Sit Minimal Assistance Sit to Supine Sit to Supine Minimal Assistance PT-Transfer Assessment Sit to and From Stand Sit to and from Contact Guard Assistance,1 Person Assistance,Use of Stand Upper Extremities Equipment Transfer Assistive Gait Belt,Front Wheeled Walker Device Orthotic/Prosthetic No Devices or Brace: Transfers Transfer Destination Chair Transfer Technique ambulated Transfer Ability Level of Assist Minimal Assistance,1 Person Assistance,Use of Upper Extremities Comments Mobility Comments pt sitting on the chair and agreeable to do PT. c/o increase R hip pain. completed sit to stand min A and step transfer to EOB using FWW min A and cues. (+) R knee slight buckling and cued pt for stability and quads activation. pt requiring min a and max cues for sit<>supine. pt sitting on EOB. c/o increase R hip pain. spouse just stepped in. Caregiver training conducted. educated spouse on how to assist pt with bed mobility. pt completed bed mobility again with spouse assisting. educated spouse on how to use safety belt. spouse was able to put safety belt on pt. pt completed sit to stand and ambulation using FWW with spouse assisting requiring min A and cues. stair climbing training. educated pt and spouse on how to do stairs. pt completed up/down steps using L rail min to mod A and max cues. assisted pt back to her room. ambulated from w/c to chair using FWW min A with spouse assisting. positioned pt in bed. call light and table placed within reach. pt and spouse without further concerns. Gait Assessment Gait Gait Assistance Minimum Assistance Required: Distance (Feet) 50 Able to Maintain Yes Weight Bearing Status During Gait Assistive Devices Assistive Device Gait Belt,Front Wheeled Walker Orthotic/Prosthetic No Devices or Brace: Gait Deviations General Gait Pattern Antalgic,Decreased Stride Length,Decreased Feet Clearance,Step-to Gait Factors Limiting Gait Function Factors Limiting Decreased Activity Tolerance,Decreased Strength, Gait Function Difficulty Following Directions,Limited Range of Motion ,Pain,Poor Balance,Poor Safety Awareness Stair Climbing Assessment Evaluation Level of Assist On Minimal Assistance,Moderate Assistance,1 Person Stairs Assistance Devices Stair Climbing Left Railing Assistive Devices Technique/Endurance Stair Climbing Ascend and Descend Direction Stair Climbing Step to Step Technique Number of Steps 3 Climbed Stair Climbing Set # 1 Repetitions (reps) M5 PT-IP Objective Assessments Start: 01/29/25 16:56 Freq: NEEDED Status: Discharge Protocol: Document 01/29/25 16:56 [facility] (Rec: 01/29/25 17:04 [facility] [id number]) Orientation Orientation/Cognition Level of Alertness Alert Language Function No Deficits Noted Ability Safety Awareness Understands Safety Issues Memory Description No Deficits Noted Gross Range of Motion Lower Extremity ROM Assessment Right Impaired M6 PT-IP Treatment Start: 01/29/25 16:56 Freq: NEEDED Status: Discharge Protocol: Document 01/30/25 09:45 AB (Rec: 01/30/25 12:59 AB [id number]) Physical Therapy Treatment Education Education Provided Safety M7 PT-IP Assessment and Plan Start: 01/29/25 16:56 Freq: NEEDED Status: Discharge Protocol: Document 01/30/25 09:45 AB (Rec: 01/30/25 12:59 AB [id number]) PT Summary Assessment and Plan Potential Rehabilitation Fair Potential Summary Impairments Pain,ROM,Strength,Balance,Coordination,Sensation,Tone, Cognition,Bed Mobility,Transfers,Gait,Activity Tolerance Progress Towards Slow Progress due to Pain,Slow Progress due to Activity Goals Tolerance Assessment Summary pt requiring min A and max cues with mobility using FWW . caregiver training conducted and spouse was able to assist pt. pt plans to go home and stated that she has outpt PT set up. Goals Bed Mobility Goal Independent Transfer Goal Independent Gait Goal Independent,Front Wheel Walker Gait Distance 125ft Other Goals up/down 3 stairs w/rail SBA Days to Meet Goals 5 Frequency of Treatment Frequency Of Twice a Day Treatment Treatment Plan Physical Therapy Bed Mobility Training,Transfer Training,Gait Training, Treatment Plan Therapeutic Exercise,Balance Retraining,Neuromuscular Re-ed,Manual Therapy Weight Bearing Status Weight Bearing Weight Bear as Tolerated Status Allowed Weight RLE WBAT Bearing Amount ( enter % or #) (%) Recommendations To Nursing Amount of Assist 1 Person Assist Needed Discharge Recommendations PT Discharge Home with Assistance,Outpatient PT Recommendations Transportation Needs Private Vehicle at Discharge - PT assist 1
[2025-01-30] MEDS: DOCUSATE 100 MG CAPSULE PO (09:53)
[2025-01-30] MEDS: ASPIRIN EC 81 MG TABLET PO (09:53)
--- NOTE | 2025-01-30 10:37 | CM.DANOTE ---
Initial DCP Assessment Visit Note Reviewed EMR and team rounds for pt's medical status and updates. Met with pt and spouse at bedside to introduce self and role. Pt was found to be alert/oriented, dressed, and ready for PT. Pt resides independently in her own home w/spouse here in [place]. Her spouse will transport her home following PT. No CM d/c needs are identified at this time. Payor: [facility] Attending: Dr. Hammond Pt is a 74 year-old F post-op day 1 from a R-total hip arthroplasty surgery. She has a hx of chronic R-hip arthritis that interferes with her ADL's and quality of life. She did well postoperatively, pain was well controlled, and she's been medically cleared for d/c. She plans to stay in their bottom level of the home for the initial recovery phase in order to avoid using the stairs, and her will be providing for her care needs. OP PT is set up, as is f/u with Ortho. Discharge Planning/Care Management CM Discharge Assessment Start: 01/29/25 08:27 Freq: Status: Active Protocol: Document 01/30/25 10:35 DPL (Rec: 01/30/25 10:37 DPL [id number]) Discharge Planning Assessment Assigned Discharge COURTNEY [place] Knockdown Man Provider Huy Singh [facility] Advance Directives? Yes Advance Directives No on File History Provided By Patient,Medical Record Has Patient been No admitted in last 30 days? Prior Living House Arrangements Household Members spouse Type of Drives own vehicle transporation used prior to admit Independent with ADL Yes 's Is patient alert and Yes oriented? Caregiver for No Another DME Already Rented / Bath Bench,Elevated Toilet Seat,FWW / Walker,Cane Owned Patient/Family OP PT Therapy Preference Barriers to No Discharge Discharge Plan Home Referrals Initiated None needed Whiteboard Updated Yes in Patient Room with name and ext. # of Practice Advisor Review Status In Process Please Provide Date 01/30/25 Initial DC Assessment Was Performed Pre-Anesthesia Assessment Start: 01/11/25 09:38 Freq: Status: Complete Protocol: Document 01/11/25 09:38 LB (Rec: 01/11/25 10:45 LB [id number]) Pre-Anesthesia Assessment PAC Comment 01/11/25 Phone assessment. Patient Information Phone Assessment Reviewed Via Assessment Completed Patient With Diagnostic Results BMP/CMP,CBC,EKG Comment 12/05/24 at . Primary Care Huy Singh Provider Medical Clearance Yes Received Seen Specialist in Yes Last 12 Months Specialist Seen Orthopedist Primary Language B[place] Preferred Language B[place]wan[place] Vmware Consultant Required No Height 154.94 cm Weight 68.039 kg Body Mass Index (BMI 28.3 ) Hearing Ability Hearing Impaired,Use of Hearing Aid Visual Assist Glasses Dentition Type Teeth, Natural Present Barriers to Learning None Other Aids No Comment For reading. Hx Anesthesia No Reactions Hx Family Anesthesia No Reaction Hx Malignant No Hyperthermia Hx Blood No Transfusions Anesthesia Review No Requested Head Sulfide Operator No alcohol intake current Alcohol intake holidays/special occasions only frequency Smoking Status Never smoker Substance Use Type [ does not use #R] Pain Present Pain Reported Comment Right hip, right knee. Musculoskeletal Abnormal Gait,Difficulty Walking,Joint Pain,Numbness, Symptoms Radiating Pain into Limb,Tingling History of Falling ( Yes Recent or History of ) Patient is No completely paralyzed or completely immobile Mental Status Oriented to own ability Comment Will bring walker. Is patient on oxygen No ? Does patient have No XIAO/SOB Hx Sleep Apnea Yes: Mild. CPAP/BIPAP use prescribed not used Comment Unable to tolerate CPAP. Currently Taking a No Beta Khadijah Can You Climb a Yes Flight of Stairs Without SOB Hx Chest Pain Yes: Associated with caffeine 2021. Hx SOB No Hx Syncope or Yes: Spontaneous vertigo. Dizziness Anti-Coagulant No Therapy Has a Coupon Manifest Clerk No Cardiac Testing Yes: Echo 12/12. Hx Pacemaker/ICD No Gastrointestinal Reflux Symptoms Chronic UTI No Bladder Pattern Frequency,Urgency Urinary Catheter No Present Hx Urinary Self No Catheterization Diabetes No Patient No Lactating No Hx Drug Resistant No Organism Presence of external Yes: Bilat IOL. or internal medical devices? Have you had any No close contact with someone diagnosed with COVID-19? Are you experiencing No symptoms any of these symptoms? Comment Denies covid last 8 weeks. Marital Status Lives With spouse Number of Floors ( Two Floors Floors) Number of Stairs To 3 stairs with railing to enter. Main floor living. Enter/Railing? Support System Spouse Does the Patient Yes Have Assistance After Surgery Patient Discharge Return Home Plan Description Additional comment Advised same day surgery by surgeon. Feels Safe in Yes Current Environment Do you have a plan No Plan to hurt yourself or others? Do You Have Any No Spiritual Beliefs That May Affect Your HC Choices? Do You Have Any No Cultural Practices That May Affect Your HC Choices? Emergency Contact Joseph Zhong - Name Emergency Contact [phone] - Home. Phone Number Advance Directives? Yes Advance Directives No on File Requested Patient Yes Bring Advanced Directives DOS Power of Sand Control Worker Yes Power of Sand Control Worker Joseph Zhong - Name Power of Sand Control Worker [phone] - cell Phone Number PAC Instructions Assistance for 24 hours post-op,Do not shave/clip surgical site,Durable medical equipment,Medications to take/avoid,Nasal antibiotic,No ETOH/petroleum product on skin DOS,NPO,Post-op transportation,Pre-surgical wash,Sensory aids,Sturdy shoes/comfortable clothes,Do not bring valuables and remove jewelry
--- NOTE | 2025-01-30 11:01 | PC.NURSE ---
Patient worked with OT and PT this morning. Discharge orders received. Discharge handouts reviewed with patient and her , they have no further questions or concerns at this time. IV was dc'd. Patient was escorted out via wheelchair by HOUSE PAINTER HELPER to discharge to home with her . Patient reports her prescriptions have been previously arranged and picked up, and her follow up appointments are scheduled. Patient is instructed to notify doctor with questions or concerns.
== END 2025-01-30 11:00 | disposition home or self-care (01) ==
LOC: OR 08:20 → AC 08:22
PROVIDERS: Physician Assistant Surgical; Family Provider Family Medicine; PCP Family Medicine; Referring Provider Orthopaedic Surgery Adult Reconstructive Orthopaedic Surgery; Visit Provider Orthopaedic Surgery Adult Reconstructive Orthopaedic Surgery
PROC: (CPT 27130; principal; 2025-01-29 10:45)
DX: M16.11 Unilateral primary osteoarthritis, right hip (principal); M25.751 Osteophyte, right hip; I45.10 Unspecified right bundle-branch block
CPT/HCPCS: 27130; 0054T; 36415; 71045; 73502; 76000; 80048; 85025; 97110; 97116; 97162; 97165; 97530; 97535; C1776; C1713; J0690; J1100; J1885; J2405; J2704

== ENCOUNTER 2025-02-12 08:59 | Emergency (ER) | payer OTHER, SELFPAY ==
[2025-01-29 08:27] VITALS: BMI 27.8
[2025-02-12 09:07] VITALS: BP 131/61; PULSE 97; O2SAT 99
[2025-02-12 09:11] VITALS: BP 151/89; PULSE 107; RESP 18; TEMP 36.9; O2SAT 98
[2025-02-12 09:30] VITALS: PULSE 90; O2SAT 97
[2025-02-12 09:40] VITALS: BP 131/61; PULSE 90; O2SAT 98
--- NOTE | 2025-02-12 09:43 | ED.SKABFB ---
HPI - Skin/Abscess/Foreign Bdy General Chief complaint: Skin/Abscess/Foreign Body Stated complaint: Hives all over body 4 days Time Seen by Provider: 02/12/25 09:29 Source: patient, RN notes reviewed and old records reviewed Mode of arrival: Ambulatory Limitations: no limitations History of Present Illness HPI narrative: 74-year-old female with a history of intermittent hives who presents with complaint of hives for the past 4 days. Patient notes that she had a right hip surgery on was taking oxycodone until but states rash started on the . Patient has occasionally had hives but not this persistent or this much. She has seen Allergy/immunology twice before. She does not appreciate any other triggers. She has not been taking any antibiotics. She does not appreciate any other new exposures although they note there was possibility for some. She states she has had hives but they have been persisting and having new patches show up over time. No mucous membrane involvement. No blistering. No fevers. No chest pain or shortness of breath. No follow up of the tongue or airway. No shortness of breath or chest pain. She has a little nausea at 1 point but not persistently. She has had 1 day where she had diarrhea but not persistently. No urinary symptoms. She is taking Benadryl 25 mg every 4-6 hours but with minimal improvement. She states no daily medications otherwise. Denies any other recent surgeries. Does have multiple allergies to medications. Notes that it is on her torso, upper and lower extremities particularly the truncal extremities as well as neck. Related Data Home Medications ?Medication ?Instructions ?Recorded ?Confirmed [MAGNESIUM] ##0 11/21/10 01/17/25 [CALCIUM] 1,000 mg PO DAILY ##0 11/26/10 01/17/25 omega 6-cwc-hbr-fish oil 1,200 mg cap PO 08/11/24 01/17/25 (144 mg-216 mg) capsule (Fish Oil) acetaminophen 500 mg tablet 1,000 mg PO TID PRN Pain. 01/11/25 01/17/25 (Acetaminophen Extra Strength) cholecalciferol (vitamin D3) 50 50 mcg PO DAILY 01/11/25 01/17/25 mcg (2,000 unit) capsule (Vitamin D3) kpmnuujg-vnes-swsc 8 mg-folic 400 1 tab PO DAILY 01/11/25 01/17/25 mcg-K 50 mcg-lutein 300 mcg tablet (Centrum Silver Women) Previous Rx's ?Medication ?Instructions ?Recorded clobetasol 0.05 % lotion 1 applic topical BID PRN Psoriasis 05/09/24 #118 mL aspirin 81 mg tablet,delayed 81 mg PO BID 45 days #90 tabs 01/17/25 release docusate sodium 100 mg capsule 100 mg PO BID PRN constipation #60 01/17/25 (Colace) caps ondansetron 4 mg disintegrating 4 mg PO Q8H PRN nausea and 01/17/25 tablet vomiting #7 tabs oxycodone 5 mg tablet 5 mg PO Q6H PRN pain #25 tabs 01/17/25 prednisone 10 mg tablets in a dose See Rx Instructions PO .COMPLEX 02/12/25 pack #21 ea Allergies Allergy/AdvReac Type Severity Reaction Status Date / Time doxycycline Allergy Severe NIGHTMARES Verified 02/12/25 09:12 hydrocodone Allergy Severe rash/itchy Verified 02/12/25 09:12 levofloxacin Allergy Severe rash/itchy Verified 02/12/25 09:12 penicillin G Allergy Severe RASH Verified 02/12/25 09:12 pseudoephedrine Allergy Severe PIERCE, Verified 02/12/25 09:12 NERVOUS, HYPER Sulfa (Sulfonamide Allergy Severe RASH Verified 02/12/25 09:12 Antibiotics) latex Allergy Intermediate Rash Verified 02/12/25 09:12 famotidine Allergy Mild Nausea Verified 02/12/25 09:12 NSAIDS (Non-Steroidal AdvReac Severe Rash, Verified 02/12/25 09:12 Anti-Inflamma headache. Review of Systems Review of Systems ROS Unobtainable: All systems reviewed & are unremarkable except as noted in HPI and below Patient History Medical History Chronic vasomotor rhinitis Torn meniscus Angina at rest Arthralgia Persistent postural-perceptual dizziness (Unknown) GERD (gastroesophageal reflux disease) (Unknown) DJD (degenerative joint disease) of cervical spine (Unknown) Migraines (Unknown) Osteoporosis (Unknown) Hyperlipemia (Unknown) Psoriasis (Unknown) Carpal tunnel syndrome (Unknown) Allergic rhinitis (Unknown) Sacroiliac joint pain (06/10/17) Hearing loss (06/10/17) Paresthesia of upper extremity (10/08/16) Gastroesophageal reflux disease (06/05/16) Vertigo (03/06/16) Weakness of both hips (11/07/15) Weakness of shoulder (11/07/15) Chronic fatigue (11/07/15) Other seasonal allergic rhinitis (04/11/15) Osteopenia (04/11/15) Mixed hyperlipidemia (04/11/15) Surgical History [place] teeth removed History of appendectomy (05/02/11) History of cervical spinal arthrodesis (03/06/16) Hx of cervical discectomy (Unknown) Family History Father Congestive heart failure Diabetes mellitus Heart disease Dementia Mother Loud snoring Obesity Hypertension Depression Brain aneurysm Grandfather No problems noted. Grandmother Cancer Family/Other Sleep apnea Hypertension Diabetes mellitus Anxiety Social History marital status: number of children: 0 household members: spouse lives independently: Yes housing: house pets and animals: No education level: college occupational status: other current occupational exposures/hazards: No leisure activities: volunteer work seatbelt use: always do you feel safe at home: Yes Smoking Status: Never smoker alcohol intake: current substance use type: does not use during the past year weight has: remained stable well-balanced diet: daily or most days daily servings fruits/ve-4 caffeine: No (Quit coffee in July 2024) eating out: 1-3 times/week Type(s) of exercise: sedentary lifestyle Smoking Status: Never smoker Exam Narrative Exam Narrative: GEN: well nourished, well appearing you, alert and oriented x 3, patient appears to be in mild distress. HEENT: Atraumatic, pupils are equal round reactive to light, extraocular movements are intact, nares are clear, there is no conjunctival pallor. Throat is clear without any exudates, erythema, tonsillar enlargement or uvular deviation, no lesions or changes of the mouth or tongue. HEART: Regular rate and rhythm without murmur, clicks, rubs. No carotid bruits, pulses are equal in upper and lower extremities LUNGS:Lungs clear to auscultation, no wheezes, rales, crackles, chest moves symmetrically ABD:bowel sounds normal, soft, non-tender, no guarding, rebound, rigidity, no masses noted, no hepatosplenomegaly MSCL: Non-tender, no muscle atrophy, muscles strength 5/5 upper and lower extremities, full range of motion, patient's incision on her right hip bandage was lifted appears clean dry and intact and healing appropriately. NEURO:CN 2-12 intact, sensation normal SKIN: Patient has raised erythematous wheals on her torso anterior and posteriorly, upper extremities particularly her upper arms but also in the forearm as well as thighs. It is bilateral. No blisters, no vesicles. There was no warmth. Is blanchable. No petechiae or other skin changes appreciated. Initial Vital Signs Initial Vital Signs: Vital Signs Pulse Rate 97 H 02/12/25 09:07 Blood Pressure 131/61 02/12/25 09:07 Pulse Oximetry 99 02/12/25 09:07 Course Orders Ordered: Discontinued Medications Prednisone (Prednisone 20 Mg Tablet) 60 mg PO NOW ONE Stop: 02/12/25 10:14 Last Admin: 02/12/25 10:22 Dose: 60 mg Documented By: KARMA Vital Signs Vital signs: Vital Signs - 8 hr 02/12/25 09:07 02/12/25 09:11 02/12/25 09:30 Temperature 98.4 F Pulse Rate 97 H 107 H 90 Respiratory Rate 18 Blood Pressure 131/61 151/89 H Pulse Oximetry 99 98 97 Oxygen Delivery Method Room Air 02/12/25 09:40 02/12/25 09:40 02/12/25 10:00 Temperature Pulse Rate 90 93 H Respiratory Rate Blood Pressure 131/61 Pulse Oximetry 98 99 Oxygen Delivery Method 02/12/25 10:00 Temperature Pulse Rate Respiratory Rate Blood Pressure 146/68 H Pulse Oximetry Oxygen Delivery Method MDM - Skin/Abscess/Foreign Bdy MDM Narrative Medical decision making narrative: 74-year-old female with a hives which has been persistent and having new pages show up over time patient notes has tried Benadryl 25 mg every 4-6 hours without improvement. Has had 2 prior episodes in the past has seen Allergy and immunology in the past with no clear source. Discussed possibly her surgery was triggering episode does not appear to be any other clear sources. She was taking oxycodone until the day prior but has been off this since the 08 of February and her rash started on the . We will go ahead and give a dose of oral prednisone, patient can continue with Benadryl 50 mg every 6 hours and discussed she can add Zyrtec twice daily [id number] with follow up with primary care if symptoms are persistent but mild. Patient is to return for re-evaluation if any other worsening or red flag symptoms. Discharge Plan Departure Patient Disposition: Home Clinical Impression: Hives Instructions: DI for Hives Activity Restrictions/Additional Instructions: Follow up with your physician and possibly allergy/immunology if your symptoms are persistent. You have been prescribed an oral steroid to help decrease your hives. Prescription sent to [facility]. You can continue with Benadryl 2 tablets (50mg) every 6 hours as needed for hives. You can also take Zyrtec 1 tablet every 12 hours for 5 days. Please return if you develop fevers, any signs of infection at your incision site, any blistering or hives that are peeling, any involvement of your lips, tongue or airway, any hives in mucosal areas such as inside your mouth or other new or concerning changes. Prescriptions: New prednisone 10 mg tablets,dose pack See Rx Instructions .ROUTE .COMPLEX Qty: 21 0RF Rx Instructions: 6 tabs p.o. x1 day, then 5 tabs p.o. x1 day, then 4 tablets p.o. x1 day, then 3 tabs p.o. x1 day, then 2 tabs p.o. x1 day, then 1 tab p.o. x1 day No Action omega 4-efr-sqn-fish oil [Fish Oil] 1,200 (144-216) mg capsule PO [MAGNESIUM] Qty: 0 [CALCIUM] 1,000 mg PO DAILY Qty: 0 clobetasol 0.05 % lotion 1 applic TOP BID PRN (Reason: Psoriasis) Qty: 118 5RF acetaminophen [Acetaminophen Extra Strength] 500 mg tablet 1,000 mg PO TID PRN (Reason: Pain.) Centrum Silver Women 8 mg iron-400 mcg-50 mcg tablet 1 tab PO DAILY cholecalciferol (vitamin D3) [Vitamin D3] 50 mcg (2,000 unit) capsule 50 mcg PO DAILY docusate sodium [Colace] 100 mg capsule 100 mg PO BID PRN (Reason: constipation) Qty: 60 0RF aspirin 81 mg tablet,delayed release (DR/EC) 81 mg PO BID 45 Days Qty: 90 0RF ondansetron 4 mg tablet,disintegrating 4 mg PO Q8H PRN (Reason: nausea and vomiting) Qty: 7 0RF oxycodone 5 mg tablet 5 mg PO Q6H PRN (Reason: pain) Qty: 25 0RF Referrals: Huy Singh MD [Primary Care Provider, Family Practice] Stand Alone Forms: Patient Portal/API
[2025-02-12 10:00] VITALS: BP 146/68; PULSE 93; O2SAT 99
== END 2025-02-12 10:43 | disposition home or self-care (01) ==
PROVIDERS: Emergency Provider Emergency Medicine; Family Provider Family Medicine; PCP Family Medicine
DX: L50.9 Urticaria, unspecified (principal)
CPT/HCPCS: 99283

== ENCOUNTER 2025-04-18 10:45 | Outpatient (RCR) | payer OTHER, SELFPAY ==
[2025-01-29 08:27] VITALS: BMI 27.8
--- NOTE | 2025-02-15 10:36 | PT.OIE ---
Current Diagnoses Unilateral primary osteoarthritis, right hip (02/15/25) Past Medical History (Last Reviewed 02/12/25 @ 10:18 by Mariia Morris DO) Allergic rhinitis (Unknown) Angina at rest Arthralgia Carpal tunnel syndrome (Unknown) Chronic fatigue (11/07/15) Chronic vasomotor rhinitis DJD (degenerative joint disease) of cervical spine (Unknown) Gastroesophageal reflux disease (06/05/16) GERD (gastroesophageal reflux disease) (Unknown) Hearing loss (06/10/17) Hyperlipemia (Unknown) Migraines (Unknown) Mixed hyperlipidemia (04/11/15) Osteopenia (04/11/15) Osteoporosis (Unknown) Other seasonal allergic rhinitis (04/11/15) Paresthesia of upper extremity (10/08/16) Persistent postural-perceptual dizziness (Unknown) Psoriasis (Unknown) Sacroiliac joint pain (06/10/17) Torn meniscus Vertigo (03/06/16) Weakness of both hips (11/07/15) Weakness of shoulder (11/07/15) Past Surgical History (Last Reviewed 02/12/25 @ 10:18 by Mariia Morris DO) History of appendectomy (05/02/11) History of cervical spinal arthrodesis (03/06/16) Hx of cervical discectomy (Unknown) [place] teeth removed Visit Care Team Role Provider Type Huy Singh MD Primary Care Provider Physician Specialty: Family Practice Obstetrics Address: [address] [place] [address], [id number] Email: [email or web address] Komal Herrera PA-C Attending Provider Advanced Agricultural Equipment Design Engineer Referring Provider Specialty: Orthopedics Orthopedic Surgery Address: [address] [place] [address], [id number] Email: [email or web address] Physical Therapy Initial Evaluation PT OP: Lower Back/Lower Extremity Start: 02/15/25 08:31 Freq: Status: Active Protocol: Document 02/15/25 08:58 SAK (Rec: 02/15/25 10:35 SAK Laptop) Out-Patient Physical Therapy Visit Information Visit Information Visit Type Initial Evaluation Visit Start Time 08:58 Visit Number 1 Evaluation Information Evaluation Date 02/15/25 Precautions Precautions BROWN hearing aids BBB Current Condition History of Current Condition Onset Date 01/29/25 Current Complaints right hip tight, painful, difficulty walking History of Current Right BROWN (posterior approach). Complication of hives Condition 02/09/25 days later, in ER. Uncertain of precautions. Has exercise handouts, doing some of the time. Comes to PT walking with walker, hopeful to be able to walk without device. Prior to surgery used SPC. Sleeping on main floor in recliner , has gone upstairs for shower 2x, walking sideways using railing. assisting with shower. assisting with right side dressing. Future Testing and Follow-up with surgeon 03/17/25 Treatments Planned Treatment Goals Patient/Caregiver be able to walk without walker or cane Goals Patient Questionnaires Lower Extremity Functional Scale LEFS Score OP-PT Pain Assessment Location R hip Pain Intensity 2 Description Aching,Tender OP Mobility Evaluation Bed Mobility Supine to and from cues for safety Sit Transfers Sit to Stand decreased weight-bearing right noted OP Gait Assessment Gait Gait Assistance Standby Assistance Required: Distance (Feet) 50 Assistive Devices Assistive Device Front Wheeled Walker Gait Deviations General Gait Pattern Antalgic,Decreased Stride Length,Decreased Feet Clearance,Flexed Trunk Comments Gait Comments poor weight shift to the right with step-to pattern Stair Climbing Evaluation Evaluation Level of Assist On Contact Guard Assistance Stairs Devices Stair Climbing Straight Cane,Left Railing Assistive Devices Technique/Endurance Stair Climbing Ascend and Descend Direction Stair Climbing Step to Step Technique Number of Steps 4 Climbed Comments Stair Climbing cues for correct technique; has been doing incorrectly Comments Palpation Assessment Location right hip Palpation Findings Edema,Soft Tissue Tightness,Tenderness Skin Assessment Edema Assessment right hip Edema Type Non-Pitting Edema Appearance Taut Subjective Edema Pain,Tightness Description Comments no signs or symptoms of infection Incisional Assessment Incision Appearance/ well healing, immature Comments Hip Goniometric Range of Motion Hip Right Active Hip ROM WFL Yes Testing Position Supine Comments caution for no extension beyond 0 right hip Left Active Hip ROM WFL Yes Hip Strength Hip Manual Muscle Testing Right Comments no MMT due to surgery, appears grossly 3-/5 Left Comments no MMT, appears to have antigravity strength Knee Strength Knee Manual Muscle Testing hollie Flexion (S2) 4 Good Extension (L3) 4 Good Ankle/Foot Strength Ankle and Foot Manual Muscle Testing hollie Dorsiflexion (L4) 4 Good Plantarflexion (S1) 4 Good Gait Training Gait Activity 2 Description stairs Device Used left railing, SPC Level of Assistance CGA, cues Surface 6 stairs Distance/Duration x3 Treatment Focus correct step-to patterning Comments present for training to assist follow-through 1 Description gait with FWW Device Used FWW Level of Assistance SBA, cues Surface firm Distance/Duration 50 ft x 2 Treatment Focus cues for increased wt shift to right, walker closer to body, symmetrical st Comments present for training to assist follow-through Manual Therapy Treatment Consent Patient gave verbal Yes consent for manual treatment Soft Tissue Mobilization right hip Body Location proximal thigh avoiding incision Mobilization Type Strumming Intensity/Depth gentle Body Position Supine Comments pillow under knee Self-Care/Home Management Treatment Education Patient Education Home Exercise Program Other Education issued written updated HEP; added glut set, quad set, standing weight shift, present Hot Pack/Cold Pack Treatment Cold Pack Location right hip Patient Tolerance Good Comments pillow under knees Physical Therapy Assessment Rehab Potential Rehabilitation Good Potential Evaluation Complexity Number of Personal 1-2 Factors/ Comorbidities Number of Body 3 Systems Impaired Clinical Evolving Presentation at Evaluation Impairments Impairments Gait,Integument,Strength Goals Four Impairment decreased scar and soft tissue mobility proximal right hip Nursing Home Goal (LTG) Improve scar and soft tissue mobility to WNL to allow normal right hip function Three Impairment right hip ROM and strength impairments Short Term Goal (STG Patient will be able to demonstrate 75% HEP without ) cues and verbalize compliance STG Duration 02/27/25 Nursing Home Goal (LTG) right hip strength at least 4+/5 and ROM WNL to allow return to prior level of function LTG Duration 05/17/25 Two Impairment step-to pattern on stairs using rail and SPC Hygiene Coordinator Goal (LTG) Patient will be able to ascend and descend stairs with alternating pattern with one railing LTG Duration 05/17/25 One Impairment antalgic gait, uses FWW Short Term Goal (STG Patient able to ambulate for household distances using ) FWW without limp STG Duration 03/17/25 Hygiene Coordinator Goal (LTG) Patient able to ambulate usual distances at home and community without assistive device, without limp LTG Duration 05/17/25 Assessment Summary Assessment Patient presents to PT with function-limiting post-op limitations right hip. Has tendency to move too quickly, has significant limp even with FWW, and is doing minimal HEP. She demonstrated incorrect gait sequence on stairs, is unable to fully shift her weight to her right LE. was present for eval and both patient and received education for gait correction, importance of taking time and focusing on technique and safety with mobility. Instructed in HEP and was issued written HO. Provided gentle STM to proximal right thigh avoiding incision. Treatment ended with ice pack to right hip. POC was discussed and patient was in agreement. Physical Therapy Plan Frequency and Duration Frequency of 2x/Week Treatment Duration of 12 treatment (weeks) Plan of Care Start 02/15/25 Date Plan of Care End 05/17/25 Date Therapeutic Interventions Therapeutic Gait Training,Home Exercise Program,Manual Therapy, Interventions Neuromuscular Re-education,Patient/Caregiver Education, Self-Care/Home Management,Soft Tissue Mobilization, Taping,Therapeutic Activities,Therapeutic Exercises Modalities Cold Pack/Ice Massage,Hot Packs Next Visit Focus/Plan Next Note Type Treatment Note Next Visit Plan Review HEP, continue gait training, manual treatment. Update HEP as indicated. End with ice.
--- NOTE | 2025-02-20 10:46 | PT.OTN ---
Current Diagnoses Unilateral primary osteoarthritis, right hip (02/20/25) Physical Therapy Treatment Note PT OP: Lower Back/Lower Extremity Start: 02/15/25 08:31 Freq: Status: Active Protocol: Document 02/20/25 09:48 [facility] (Rec: 02/20/25 10:29 SAK Laptop) Out-Patient Physical Therapy Visit Information Visit Information Visit Type Treatment Note Visit Start Time 09:48 Visit Stop Time 10:37 Visit Number 2 Number of TALENT RECRUITER Visits 0 Progress Note Due 05/17/25 Precautions Precautions BROWN hearing aids BBB Current Condition History of Current Condition Onset Date 01/29/25 Current Complaints right hip tight, painful, difficulty walking History of Current Right BROWN (anterior approach). Complication of hives Condition 02/09/25 days later, in ER. Uncertain of precautions. Has exercise handouts, doing some of the time. Comes to PT walking with walker, hopeful to be able to walk without device. Prior to surgery used SPC. Sleeping on main floor in recliner , has gone upstairs for shower 2x, walking sideways using railing. assisting with shower. assisting with right side dressing. Future Testing and Follow-up with surgeon 03/17/25 Treatments Planned OP-PT Subjective Patient Comments Patient Comments Reports 02/16/25 sprained right ankle; caught slipper on something, very swollen, reports low irritated also; Low back starting to feel better. Ankle feels better but weak. Didn't do many exercises as a result. Not taking pain medication, still has some hives. Cardio Equipment Recumbent Stepper (Sci-Fit) Duration (Minutes) 7 Resistance 1 Seat Position 8 Other 0.55 miles Gym Equipment Shuttle Recovery Unilateral Squats Resistance 25#L, 12#R Shuttle Recovery Stable Platform Reps/Time 10x1 Bilateral Squats Details vc not to lock out knees Resistance 50 Shuttle Recovery Stable Platform Reps/Time 10x2 Therapeutic Exercises Supine Exercises BROWN Supine Exercise Name AP, glut sets, heel slide, quad set (small pillow under knees ini), hip ab Reps/Minutes 10x Gait Training Gait Activity 1 Description gait with FWW Device Used FWW Level of Assistance SBA, cues Surface firm Distance/Duration 50 ft x 2 Treatment Focus cues for increased wt shift to right, walker closer to body, symmetrical st Comments present for training to assist follow-through Physical Therapy Assessment Goals Four Impairment decreased scar and soft tissue mobility proximal right hip Long-Term Goal (LTG) Improve scar and soft tissue mobility to WNL to allow normal right hip function Three Impairment right hip ROM and strength impairments Short Term Goal (STG Patient will be able to demonstrate 75% HEP without ) cues and verbalize compliance STG Duration 02/27/25 Long-Term Goal (LTG) right hip strength at least 4+/5 and ROM WNL to allow return to prior level of function LTG Duration 05/17/25 Two Impairment step-to pattern on stairs using rail and SPC Protein Scientist Goal (LTG) Patient will be able to ascend and descend stairs with alternating pattern with one railing LTG Duration 05/17/25 One Impairment antalgic gait, uses FWW Short Term Goal (STG Patient able to ambulate for household distances using ) FWW without limp STG Duration 03/17/25 Long-Term Goal (LTG) Patient able to ambulate usual distances at home and community without assistive device, without limp LTG Duration 05/17/25 Assessment Summary Assessment Patient continues to needs cues to slow down, pay attention to her walking, equal step lengths, turn slowly, work toward no limp. Pt ed for not always putting pillow under right thigh due to tightness. By end of session patient demonstrating improved gait and attention to technique. Pt. needs encouragement to do HEP. Physical Therapy Plan Frequency and Duration Frequency of 2x/Week Treatment Duration of 12 treatment (weeks) Plan of Care Start 02/15/25 Date Plan of Care End 05/17/25 Date Next Visit Focus/Plan Next Note Type Treatment Note Next Visit Plan Continue gait training with progession to cane when able to ambulate with walker without limp, review stairs, try 4 with alternating if ready. Progress ther ex and HEP as pt. tolerates. Manual therapy right quad,end with ice.
--- NOTE | 2025-02-22 15:19 | PT.OTN ---
Current Diagnoses Unilateral primary osteoarthritis, right hip (02/22/25) Physical Therapy Treatment Note PT OP: Lower Back/Lower Extremity Start: 02/15/25 08:31 Freq: Status: Active Protocol: Document 02/22/25 13:48 AB (Rec: 02/22/25 15:18 AB [id number]) Out-Patient Physical Therapy Visit Information Visit Information Visit Type Treatment Note Visit Start Time 14:25 Visit Stop Time 15:20 Visit Number 3 Number of PERISHABLE FRUIT INSPECTOR Visits 1 Progress Note Due 05/17/25 Precautions Precautions BROWN hearing aids BBB OP-PT Subjective Patient Comments Patient Comments Patient rates pain .10 R hip. SLS R LE 2 sec with reports of pain inc to 210. Patient stands with weight excessively shifted L, inc R LE hip and knee flexion and plantarflexion Therapeutic Exercises Supine Exercises HS stretch Supine Exercise Name from hooklying HEP Side right Reps/Minutes 60 sec X 2 Comments Verbal cues BROWN Supine Exercise Name AP, glut sets, heel slide, quad settherapist hand under knees ini), hip ab Reps/Minutes 10x Xeach exercise ex ankle pumps X 30 Comments Verbal cues/review Standing Exercises sit to stand Standing Exercise HEP Name Side bilateral Reps/Minutes X 2 training then X 5 X 3 Comments Pt ed self tactile cues for hip hinge, and to stand upright in good posture Manual Therapy Treatment Consent Patient gave verbal Yes consent for manual treatment Soft Tissue Mobilization right hip Body Location avoiding incision, illiopsoas, quad and HS, prox calf Mobilization Type Cross-Friction,Rolling Intensity/Depth Moderate Body Position Hooklying Hot Pack/Cold Pack Treatment Cold Pack Location right hip Patient Tolerance Good Comments LE's on [facility] Physical Therapy Assessment Goals Four Impairment decreased scar and soft tissue mobility proximal right hip Cardiovascular Specialist Goal (LTG) Improve scar and soft tissue mobility to WNL to allow normal right hip function Three Impairment right hip ROM and strength impairments Short Term Goal (STG Patient will be able to demonstrate 75% HEP without ) cues and verbalize compliance STG Duration 02/27/25 [facility] Goal (LTG) right hip strength at least 4+/5 and ROM WNL to allow return to prior level of function LTG Duration 05/17/25 Two Impairment step-to pattern on stairs using rail and SPC Cardiovascular Specialist Goal (LTG) Patient will be able to ascend and descend stairs with alternating pattern with one railing LTG Duration 05/17/25 One Impairment antalgic gait, uses FWW Short Term Goal (STG Patient able to ambulate for household distances using ) FWW without limp STG Duration 03/17/25 [facility] Goal (LTG) Patient able to ambulate usual distances at home and community without assistive device, without limp LTG Duration 05/17/25 Assessment Summary Assessment Patient rates R hip pain .09/30 knee 06/02 end of session ambulating with FWW. Patient able to transfer sit to stand with improved hip hinge and nearly equal WS L to R post training. Physical Therapy Plan Frequency and Duration Frequency of 2x/Week Treatment Duration of 12 treatment (weeks) Plan of Care Start 02/15/25 Date Plan of Care End 05/17/25 Date Next Visit Focus/Plan Next Note Type Treatment Note Next Visit Plan Continue gait training with progession to cane when able to ambulate with walker without limp, review stairs, try 4 with alternating if ready. Progress ther ex and HEP as pt. tolerates. Manual therapy right quad,end with ice.
--- NOTE | 2025-02-27 17:24 | PT.OTN ---
Current Diagnoses Unilateral primary osteoarthritis, right hip (02/27/25) Physical Therapy Treatment Note PT OP: Lower Back/Lower Extremity Start: 02/15/25 08:31 Freq: Status: Active Protocol: Document 02/27/25 14:34 AB (Rec: 02/27/25 15:19 AB [id number]) Out-Patient Physical Therapy Visit Information Visit Information Visit Type Treatment Note Visit Start Time 14:35 Visit Stop Time 15:26 Visit Number 4 Number of FORMS DESIGNER Visits 1 Progress Note Due 03/16/25 Precautions Precautions BROWN hearing aids BBB OP-PT Subjective Patient Comments Patient Comments Patient rates pain 0/10 ambulating into session with FWW. SLS R LE less than one sec with rating of pain 2/ 10. R knee lacking 4 deg ext in supine AROM see last note subjective patient standing with inc R LE hip and knee flexion. Therapeutic Exercises Supine Exercises SLR Reps/Minutes 15 Comments verbal Modified Angelo stretch Supine Exercise Name thigh on mat lower LE off mat, opp UE toward chest Reps/Minutes 60 sec with AROM knee flexion X 10 Comments verbal cues bridge Supine Exercise Name HEP Reps/Minutes X15 Comments verbal cues, monitored for pain HS stretch Supine Exercise Name from hooklying HEP Side right Reps/Minutes 60 sec X 2 Comments Verbal cues Sidelying Exercises hip abduction Side right Reps/Minutes X 15 Comments assist at trunk to hold position, verbal cues reverse clamshell Side right Reps/Minutes x 15 Comments verbal and tactile cues clamshell Side right Reps/Minutes X15 Comments verbal and tactile cues Standing Exercises step up Standing Exercise step up step back Name Side right Resistance 4 inch step Reps/Minutes X 15 Comments visual cues, monitored for pain Manual Therapy Treatment Consent Patient gave verbal Yes consent for manual treatment Soft Tissue Mobilization right hip Body Location avoiding incision, illiopsoas, quad and HS, prox calf, glute/piriformis Mobilization Type Cross-Friction,Rolling Intensity/Depth Moderate Body Position Hooklying Hot Pack/Cold Pack Treatment Cold Pack Location right hip Patient Tolerance Good Comments LE's on [facility] Physical Therapy Assessment Goals Four Impairment decreased scar and soft tissue mobility proximal right hip Care Home Goal (LTG) Improve scar and soft tissue mobility to WNL to allow normal right hip function Three Impairment right hip ROM and strength impairments Short Term Goal (STG Patient will be able to demonstrate 75% HEP without ) cues and verbalize compliance STG Duration 02/27/25 Care Home Goal (LTG) right hip strength at least 4+/5 and ROM WNL to allow return to prior level of function LTG Duration 05/17/25 Two Impairment step-to pattern on stairs using rail and SPC Care Home Goal (LTG) Patient will be able to ascend and descend stairs with alternating pattern with one railing LTG Duration 05/17/25 One Impairment antalgic gait, uses FWW Short Term Goal (STG Patient able to ambulate for household distances using ) FWW without limp STG Duration 03/17/25 Sweet Pickled Fruit Maker Goal (LTG) Patient able to ambulate usual distances at home and community without assistive device, without limp LTG Duration 05/17/25 Assessment Summary Assessment Patient rates R hip pain 06/02 end of session. Good reanna to step ups on 4 inch step and bridge. SLS continues to be limited and reports inc pain on trial. Physical Therapy Plan Frequency and Duration Frequency of 2x/Week Treatment Duration of 12 treatment (weeks) Plan of Care Start 02/15/25 Date Plan of Care End 05/17/25 Date Next Visit Focus/Plan Next Visit Plan Continue gait training with progession to cane when able to ambulate with walker without limp, review stairs, try 4 with alternating if ready. Progress ther ex and HEP as pt. tolerates. Manual therapy right quad,end with ice.
--- NOTE | 2025-03-01 15:33 | PT.OTN ---
Current Diagnoses Unilateral primary osteoarthritis, right hip (03/01/25) Physical Therapy Treatment Note PT OP: Lower Back/Lower Extremity Start: 02/15/25 08:31 Freq: Status: Active Protocol: Document 03/01/25 14:35 AB (Rec: 03/01/25 15:32 AB [id number]) Out-Patient Physical Therapy Visit Information Visit Information Visit Type Treatment Note Visit Note Access Code: [email or web address] Visit Start Time 14:35 Visit Stop Time 15:22 Visit Number 5 Number of PIT CRANE OPERATOR Visits 3 Progress Note Due 03/16/25 Precautions Precautions BROWN hearing aids BBB OP-PT Subjective Patient Comments Patient Comments Patient rates pain 2/10 start of session R LE, SLS 1 sec X 3 without UE use, reports pain remains 2/10 during trials. Patient reports she did her exercises today. Gym Equipment Shuttle Recovery Unilateral Squats Resistance 25# Shuttle Recovery Stable Platform Reps/Time X 15 Bilateral Squats Details vc not to lock out knees Resistance 50 Shuttle Recovery Stable Platform Reps/Time 10x2 VC for dec velocity eccentric Shuttle Balance RED Details normal FAM with head turns and scanning, stagger without visual or head tur Reps/Duration 5 min Comments CGA Therapeutic Exercises Supine Exercises Passive HS stretch Reps/Minutes 2 min Comments assist to set up, monitored for sensation of stretch Sitting Exercises Seated hip abd with band Sitting Exercise HEP Name Resistance Level 2 latex free band Reps/Minutes one minute Comments verbal cues, assist to set up band Standing Exercises side stepping with band Resistance level 2 band at ankles Reps/Minutes 10 feet L and right X 2 Comments with UE use VC and visual cues to avoid toeing out sit to stand Standing Exercise HEP Name Side bilateral Resistance level 4 band Reps/Minutes X 5 X 3 Comments VC for tension on band and upright posture R knee as straight as L when upr Manual Therapy Treatment Consent Patient gave verbal Yes consent for manual treatment Soft Tissue Mobilization right hip Body Location avoiding incision, illiopsoas, quad and HS, prox calf, glute/piriformis Mobilization Type Cross-Friction,Rolling Intensity/Depth Moderate Body Position Hooklying Neuro Re-Education Treatment Balance Activities step up taps Details standing on foam Reps/Duration X 10 each LE Comments CGA hands above bars SLS Details without UE use Reps/Duration X2-3 X 3 R LE Comments CGA Physical Therapy Assessment Goals Four Impairment decreased scar and soft tissue mobility proximal right hip Assisted Goal (LTG) Improve scar and soft tissue mobility to WNL to allow normal right hip function Three Impairment right hip ROM and strength impairments Short Term Goal (STG Patient will be able to demonstrate 75% HEP without ) cues and verbalize compliance STG Duration 02/27/25 Mail Officer Goal (LTG) right hip strength at least 4+/5 and ROM WNL to allow return to prior level of function LTG Duration 05/17/25 Two Impairment step-to pattern on stairs using rail and SPC Mail Officer Goal (LTG) Patient will be able to ascend and descend stairs with alternating pattern with one railing LTG Duration 05/17/25 One Impairment antalgic gait, uses FWW Short Term Goal (STG Patient able to ambulate for household distances using ) FWW without limp STG Duration 03/17/25 Assisted Goal (LTG) Patient able to ambulate usual distances at home and community without assistive device, without limp LTG Duration 05/17/25 Assessment Summary Assessment Patient rates pain 1.5 end of session, and pain decreased from 2 to 1.5 during SLS trials without UE use. Patient unable to stand on R LE more than 1 sec at this time, but is now able to reanna balance exercises without increased pain. Physical Therapy Plan Frequency and Duration Frequency of 2x/Week Treatment Duration of 12 treatment (weeks) Plan of Care Start 02/15/25 Date Plan of Care End 05/17/25 Date Next Visit Focus/Plan Next Note Type Treatment Note Next Visit Plan Continue gait training with progession to cane when able to ambulate with walker without limp, assess reanna to 6 inch step up. Progress ther ex and HEP as pt. tolerates. Manual therapy right quad,end with ice.
--- NOTE | 2025-03-08 12:27 | PT.OTN ---
Current Diagnoses Unilateral primary osteoarthritis, right hip (03/08/25) Physical Therapy Treatment Note PT OP: Lower Back/Lower Extremity Start: 02/15/25 08:31 Freq: Status: Active Protocol: Document 03/08/25 10:48 AB (Rec: 03/08/25 12:26 AB [id number]) Out-Patient Physical Therapy Visit Information Visit Information Visit Type Treatment Note Visit Note Access Code: [email or web address] Visit Start Time 10:49 Visit Stop Time 11:32 Visit Number 6 Number of NETWORK INTELLIGENCE ANALYST Visits 4 Progress Note Due 03/16/25 Precautions Precautions BROWN hearing aids BBB OP-PT Subjective Patient Comments Patient Comments Patient rates R hip pain .09/30 start of session. Patient ambulates with FWW inc velocity, stance time equal. SLS 1,3 4 sec without UE use reports no increased pain Gym Equipment Shuttle Recovery Bilateral Squats Details vc and tac cues for full ext with not locking out knees Resistance 50 Shuttle Recovery Stable Platform Reps/Time X 15 X 2 Therapeutic Exercises Sitting Exercises Seated hip abd with band Sitting Exercise HEP Name Resistance Level 4 latex free band Reps/Minutes 30 sec and then one minute Comments verbal cues, assist to set up band Standing Exercises calf stretch Standing Exercise Gastroc and soleus on CAM Name Reps/Minutes 60 sec each stretch Comments verbal cues side stepping with band Resistance level 4 band above knees Reps/Minutes 10 feet L and right X Comments with UE use VC and visual cues to avoid toeing out Gait Training Gait Activity 2 Description with SPC Comments SPC adj for height, VC sec and tech indoors, then 4 six inch steps X 5 with SPC ( no rails ) int step to pattern favoring R LE then reciprocal pattern with spc only. CGA to supervision Also outdoors asc and dec curb with step to and reciprocal pattern using SPC CGA Neuro Re-Education Treatment Balance Activities Hurdles Equipment 10 feet/6 hurdles X 4 CGA FWD, then lateral hands above bars X 1 L And R Comments noted R LE in ER when standing between trials step up taps Details standing on foam also Romberg with eyes closed and head turns Reps/Duration X 10 each LE ( Romberg 2 min) Comments CGA hands above bars SLS Details without UE use Reps/Duration X 3 R LE Comments CGA Physical Therapy Assessment Goals Four Impairment decreased scar and soft tissue mobility proximal right hip Half-Way Goal (LTG) Improve scar and soft tissue mobility to WNL to allow normal right hip function Three Impairment right hip ROM and strength impairments Short Term Goal (STG Patient will be able to demonstrate 75% HEP without ) cues and verbalize compliance STG Duration 02/27/25 Hand Reamer Goal (LTG) right hip strength at least 4+/5 and ROM WNL to allow return to prior level of function LTG Duration 05/17/25 Two Impairment step-to pattern on stairs using rail and SPC Half-Way Goal (LTG) Patient will be able to ascend and descend stairs with alternating pattern with one railing LTG Duration 05/17/25 One Impairment antalgic gait, uses FWW Short Term Goal (STG Patient able to ambulate for household distances using ) FWW without limp STG Duration 03/17/25 Hand Reamer Goal (LTG) Patient able to ambulate usual distances at home and community without assistive device, without limp LTG Duration 05/17/25 Assessment Summary Assessment Patient reports having no pain end of session, reports R LE feels a little numb and reports this is a sensation she gets when she is exercising. Good return demonstration and reanna for gait training with SPC this session. Physical Therapy Plan Frequency and Duration Frequency of 2x/Week Treatment Duration of 12 treatment (weeks) Plan of Care Start 02/15/25 Date Plan of Care End 05/17/25 Date Next Visit Focus/Plan Next Note Type Treatment Note Next Visit Plan Possiby calf stretches to HEP due to ER at hip R. assess reanna to 6 inch step up. Progress ther ex and HEP as pt. tolerates. Manual therapy right quad,end with ice.
--- NOTE | 2025-03-15 11:48 | PT.OTN ---
Current Diagnoses Unilateral primary osteoarthritis, right hip (03/15/25) Physical Therapy Treatment Note PT OP: Lower Back/Lower Extremity Start: 02/15/25 08:31 Freq: Status: Active Protocol: Document 03/15/25 09:53 AB (Rec: 03/15/25 11:46 AB [id number]) Out-Patient Physical Therapy Visit Information Visit Information Visit Type Treatment Note Visit Note Access Code: [email or web address] Visit Start Time 10:47 Visit Stop Time 11:33 Visit Number 7 Number of FIELD REVIEWER Visits 5 Progress Note Due 04/14/25 Precautions Precautions BROWN hearing aids BBB OP-PT Subjective Patient Comments Patient Comments Patient reports R LE feels numb gestures to ant thigh/ quad attributes to [place] and [place], reports this has happened before the surgery comments car is too small for them. Patient reports she saw the surgeon on Wednesday, and he was very pleased, comments the incision is fully healed. Pt reports MD noted she lists to the right when ambulating without cane and to work on that. Hip Strength Hip Manual Muscle Testing Right Flexion (L2) 3+ Fair+ Extension (S1) 3- Fair- Abduction 4- Good- Adduction 3+ Fair+ External Rotation 3- Fair- Internal Rotation 4+ Good+ Comments limited ROM for ER,add, ext tested within limited ROM Therapeutic Exercises Supine Exercises quad set Reps/Minutes X 10 Comments no cues able to follow handout correctly Glute sets Reps/Minutes 8 X for 5 sec Comments no cues required, follows handout correctly Modified Angelo stretch Supine Exercise Name thigh on mat lower LE off mat, opp UE toward chest Reps/Minutes 60 sec with AROM knee flexion X 10 Comments verbal cues bridge Supine Exercise Name HEP Reps/Minutes X10 Comments no cues required, patient able to perform correctly with written HEP HS stretch Supine Exercise Name from hooklying HEP Side right Reps/Minutes 60 sec X 1 Comments initiates with ~15 sec hold, VC for full 60 sec hold Sidelying Exercises hip abduction Side right Reps/Minutes X 10 Comments assist at trunk to hold position, verbal cues HEP Sitting Exercises Seated hip abd with band Sitting Exercise HEP Name Resistance Level 4 latex free band Reps/Minutes one minute Comments verbal cues, assist to set up band Standing Exercises standing WS Standing Exercise with and without use of chair Name Reps/Minutes X 12 Comments no cues required sit to stand Standing Exercise HEP Name Side bilateral Resistance level 4 band Reps/Minutes X 5 without band for HEP review then X 10 with level 4 band Comments sit to stand with band to HEP No cues required for sit to stand w/o band Therapeutic Activity Therapeutic Activity Sit to stand to amb with SPPC Comments Patient initi sit to stand with R LE extended and SPC is too low and Pt is using with handle backwards start of session. VC to position R LE as L prior to sit to stand to avoid favoring R LE. SPC adjusted for height and patient ed to turn handle around to correct position Physical Therapy Assessment Goals Four Impairment decreased scar and soft tissue mobility proximal right hip Tank Farm Gauger Goal (LTG) Improve scar and soft tissue mobility to WNL to allow normal right hip function 03/15/2025 not assessed this session. Three Impairment right hip ROM and strength impairments Short Term Goal (STG Patient will be able to demonstrate 75% HEP without ) cues and verbalize compliance 03/15/2025 Patient required one verbal cues for 1/7 exercises during review of HEP STG Duration 02/27/25 Retirement Goal (LTG) right hip strength at least 4+/5 and ROM WNL to allow return to prior level of function 03/15/2025 Only R hip IR to 4+/5 LTG Duration 05/17/25 Two Impairment step-to pattern on stairs using rail and SPC Retirement Goal (LTG) Patient will be able to ascend and descend stairs with alternating pattern with one railing 03/15/2025 Patient able to asc and dec 4 six inch steps with one rail reciprocal pattern, reports no increased pain LTG Duration 05/17/25 MET One Impairment antalgic gait, uses FWW Short Term Goal (STG Patient able to ambulate for household distances using ) FWW without limp 03/15/2025 Patient able to ambulate in and out of clinic with no limp, reports having no pain with SPC. STG Duration 03/17/25 Retirement Goal (LTG) Patient able to ambulate usual distances at home and community without assistive device, without limp LTG Duration 05/17/25 Assessment Summary Assessment 4+ IR, abd 4- all others 3+ to 3- R LE strength, goal met for stairs and patient is able to perform HEP with 85% accuracy. Patient has made gains, but still requires assistive device and Hip weakness continues to impact gait pattern/functional mobility. Physical Therapy Plan Frequency and Duration Frequency of 2x/Week Treatment Duration of 12 treatment (weeks) Plan of Care Start 02/15/25 Date Plan of Care End 05/17/25 Date Next Visit Focus/Plan Next Note Type Treatment Note Next Visit Plan Possiby calf stretches to HEP due to ER at hip R. assess reanna to 6 inch step up. Progress ther ex and HEP as pt. tolerates. Manual therapy right quad,end with ice.
--- NOTE | 2025-03-15 15:52 | PT.OPPN ---
Current Diagnoses Unilateral primary osteoarthritis, right hip (03/15/25) Physical Therapy Progress Note PT OP: Lower Back/Lower Extremity Start: 02/15/25 08:31 Freq: Status: Active Protocol: Document 03/15/25 15:51 SAK (Rec: 03/15/25 15:52 SAK Laptop) Out-Patient Physical Therapy Visit Information Visit Information Visit Type Progress Note Visit Start Time 10:50 Physical Therapy Assessment Assessment Summary Assessment 4+ IR, abd 4- all others 3+ to 3- R LE strength, goal met for stairs and patient is able to perform HEP with 85% accuracy. Patient has made gains, but still requires assistive device and Hip weakness continues to impact gait pattern/functional mobility. Physical Therapy Plan Frequency and Duration Frequency of 2x/Week Treatment Duration of 12 treatment (weeks) Plan of Care Start 02/15/25 Date Plan of Care End 05/17/25 Date Next Visit Focus/Plan Next Note Type Treatment Note Next Visit Plan Possiby calf stretches to HEP due to ER at hip R. assess reanna to 6 inch step up. Progress ther ex and HEP as pt. tolerates. Manual therapy right quad,end with ice.
--- NOTE | 2025-03-30 12:22 | PT.OTN ---
Current Diagnoses Unilateral primary osteoarthritis, right hip (03/30/25) Physical Therapy Treatment Note PT OP: Lower Back/Lower Extremity Start: 02/15/25 08:31 Freq: Status: Active Protocol: Document 03/30/25 10:35 AB (Rec: 03/30/25 11:31 AB [id number]) Out-Patient Physical Therapy Visit Information Visit Information Visit Type Treatment Note Visit Note Access Code: [email or web address] Visit Start Time 10:45 Visit Stop Time 11:30 Visit Number 8 Number of OPTIMIZATION CONSULTANT Visits 6 Progress Note Due 04/14/25 Precautions Precautions BROWN hearing aids BBB OP-PT Subjective Patient Comments Patient Comments Patient rates pain as less than 1/10 start of session R hip. Therapeutic Exercises Supine Exercises Modified Angelo stretch Supine Exercise Name thigh on mat lower LE off mat, opp UE toward chest Reps/Minutes X 2 60 sec with AROM knee flexion X 10 Comments verbal cues bridge Supine Exercise Name HEP Side bilateral Resistance level 5 latex free band Reps/Minutes X15 X 2 Comments no cues required, patient able to perform correctly with written HEP Sidelying Exercises hip abduction Side right Resistance level one band Reps/Minutes X 2 Comments verbal and tactile cues, limted by back pain clamshell Side right Reps/Minutes X15 Comments verbal and tactile cues Standing Exercises step ups Standing Exercise 6 inch step with UE use Name Reps/Minutes X 10 each LE Comments VC to perform slowly. prone hip ext Standing Exercise next sesssion Name Therapeutic Activity Therapeutic Activity floor recovery Comments X 3 post visual and verbal cues CGA use of mat at seat level Sit to stand to amb with SPPC Comments stairs with SPC 6 inch stairs X 4 X 2 SPC and opp UE above rail VC for SPC position descending. Pt ed SPC not useful behind body when descending stairs and to position SPC fwd to step descending to. Manual Therapy Treatment Consent Patient gave verbal Yes consent for manual treatment Soft Tissue Mobilization right hip Body Location car tissue illiopsoas Mobilization Type Cross-Friction,Rolling Intensity/Depth Moderate Body Position Hooklying Manual Techniques MET Type for R AI L PI and pubic shot gun Reps/Duration 6 x 6 sec each Physical Therapy Assessment Goals Four Impairment decreased scar and soft tissue mobility proximal right hip Correction Goal (LTG) Improve scar and soft tissue mobility to WNL to allow normal right hip function 03/15/2025 not assessed this session. Three Impairment right hip ROM and strength impairments Short Term Goal (STG Patient will be able to demonstrate 75% HEP without ) cues and verbalize compliance 03/15/2025 Patient required one verbal cues for 1/7 exercises during review of HEP STG Duration 02/27/25 Mannequin Mold Maker Goal (LTG) right hip strength at least 4+/5 and ROM WNL to allow return to prior level of function 03/15/2025 Only R hip IR to 4+/5 LTG Duration 05/17/25 Two Impairment step-to pattern on stairs using rail and SPC Correction Goal (LTG) Patient will be able to ascend and descend stairs with alternating pattern with one railing 03/15/2025 Patient able to asc and dec 4 six inch steps with one rail reciprocal pattern, reports no increased pain LTG Duration 05/17/25 MET One Impairment antalgic gait, uses FWW Short Term Goal (STG Patient able to ambulate for household distances using ) FWW without limp 03/15/2025 Patient able to ambulate in and out of clinic with no limp, reports having no pain with SPC. STG Duration 03/17/25 Mannequin Mold Maker Goal (LTG) Patient able to ambulate usual distances at home and community without assistive device, without limp LTG Duration 05/17/25 Assessment Summary Assessment Patient reports having no pain end of session. Patient required VC to position cane fwd on step she is descending to during stair training. Physical Therapy Plan Frequency and Duration Frequency of 2x/Week Treatment Duration of 12 treatment (weeks) Plan of Care Start 02/15/25 Date Plan of Care End 05/17/25 Date Therapeutic Interventions Therapeutic Gait Training,Home Exercise Program,Manual Therapy, Interventions Neuromuscular Re-education,Patient/Caregiver Education, Self-Care/Home Management,Soft Tissue Mobilization, Taping,Therapeutic Activities,Therapeutic Exercises Modalities Cold Pack/Ice Massage,Hot Packs Next Visit Focus/Plan Next Note Type Treatment Note Next Visit Plan Possiby calf stretches to HEP due to ER at hip R. assess reanna to 6 inch step up. Progress ther ex and HEP as pt. tolerates. Manual therapy right quad,end with ice.
--- NOTE | 2025-04-03 13:46 | PT.OPPN ---
Current Diagnoses Unilateral primary osteoarthritis, right hip (04/03/25) Physical Therapy Progress Note PT OP: Lower Back/Lower Extremity Start: 02/15/25 08:31 Freq: Status: Active Protocol: Document 04/03/25 13:03 [facility] (Rec: 04/03/25 13:46 [facility] Laptop) Out-Patient Physical Therapy Visit Information Visit Information Visit Type Treatment Note Visit Start Time 13:03 Visit Stop Time 13:45 Visit Number 9 Number of CONTINUOUS DRYOUT OPERATOR HELPER Visits 0 Progress Note Due 04/14/25 Evaluation Information Evaluation Date 02/15/25 Precautions Precautions BROWN hearing aids BBB Current Condition History of Current Condition Onset Date 01/29/25 Current Complaints right hip tight, painful, difficulty walking History of Current Right BROWN (anterior approach). Complication of hives Condition 02/09/25 days later, in ER. Uncertain of precautions. Has exercise handouts, doing some of the time. Comes to PT walking with walker, hopeful to be able to walk without device. Prior to surgery used SPC. Sleeping on main floor in recliner , has gone upstairs for shower 2x, walking sideways using railing. assisting with shower. assisting with right side dressing. Future Testing and Follow-up with surgeon 03/17/25 Treatments Planned OP-PT Subjective Patient Comments Patient Comments Feels like doing floor transfer again would be a good idea. Cardio Equipment Recumbent Elliptical (NuStep) Duration (Minutes) 10 Resistance 3-5 Seat Position 5 seen Gym Equipment Shuttle Recovery Unilateral Squats Resistance 25# Shuttle Recovery Stable Platform Reps/Time X 15 Bilateral Squats Details vc and tac cues for full ext with not locking out knees Resistance 50 Shuttle Recovery Stable Platform Reps/Time 15 X 2 Therapeutic Exercises Standing Exercises HC stretch Reps/Minutes 20x30 Gait Training Gait Activity 2 Description with SPC Device Used SPC Level of Assistance SBA, cues Surface 6 stairs Treatment Focus safety, sequencing Comments stairs Manual Therapy Treatment Soft Tissue Mobilization right hip Body Location car tissue illiopsoas Mobilization Type Cross-Friction,Rolling Intensity/Depth Moderate Body Position Hooklying Comments deep prep massage cream Physical Therapy Assessment Goals Four Impairment decreased scar and soft tissue mobility proximal right hip Table Games Shift Manager Goal (LTG) Improve scar and soft tissue mobility to WNL to allow normal right hip function 03/15/2025 not assessed this session. LTG Duration 05/17/25 Three Impairment right hip ROM and strength impairments Short Term Goal (STG Patient will be able to demonstrate 75% HEP without ) cues and verbalize compliance 03/15/2025 Patient required one verbal cues for 1/7 exercises during review of HEP STG Duration 02/27/25 Table Games Shift Manager Goal (LTG) right hip strength at least 4+/5 and ROM WNL to allow return to prior level of function 03/15/2025 Only R hip IR to 4+/5 04/03/25: good goal progress LTG Duration 05/17/25 Two Impairment step-to pattern on stairs using rail and SPC Table Games Shift Manager Goal (LTG) Patient will be able to ascend and descend stairs with alternating pattern with one railing 03/15/2025 Patient able to asc and dec 4 six inch steps with one rail reciprocal pattern, reports no increased pain LTG Duration 05/17/25 MET One Impairment antalgic gait, uses FWW Short Term Goal (STG Patient able to ambulate for household distances using ) FWW without limp 03/15/2025 Patient able to ambulate in and out of clinic with no limp, reports having no pain with SPC. STG Duration met Group Home Goal (LTG) Patient able to ambulate usual distances at home and community without assistive device, without limp1: mild limp with cane, appears habitual. LTG Duration 05/17/25 Progress Towards Goals Progress Towards Progressing Toward Goals Goals Assessment Summary Assessment Improved floor transfer today, pt reports improved ease vs last session; SBA. Cues for decreased lateral sway with gait. Continued STM scar due to mod tightness. Physical Therapy Plan Frequency and Duration Frequency of 2x/Week Treatment Duration of 12 treatment (weeks) Plan of Care Start 02/15/25 Date Plan of Care End 05/17/25 Date Therapeutic Interventions Therapeutic Gait Training,Home Exercise Program,Manual Therapy, Interventions Neuromuscular Re-education,Patient/Caregiver Education, Self-Care/Home Management,Soft Tissue Mobilization, Taping,Therapeutic Activities,Therapeutic Exercises Modalities Cold Pack/Ice Massage,Hot Packs Next Visit Focus/Plan Next Note Type Treatment Note Next Visit Plan Gait training with mirror, gait on uneven surfaces, continue progressive strengthening focused on functional.
--- NOTE | 2025-04-05 15:35 | PT.OTN ---
Current Diagnoses Unilateral primary osteoarthritis, right hip (04/05/25) Physical Therapy Treatment Note PT OP: Lower Back/Lower Extremity Start: 02/15/25 08:31 Freq: Status: Active Protocol: Document 04/05/25 13:47 AB (Rec: 04/05/25 14:34 AB [id number]) Out-Patient Physical Therapy Visit Information Visit Information Visit Type Treatment Note Visit Note Access Code: [email or web address] Visit Start Time 13:48 Visit Stop Time 14:33 Visit Number 10 Number of FLOW NURSE Visits 1 Progress Note Due 04/14/25 Precautions Precautions BROWN hearing aids BBB OP-PT Subjective Patient Comments Patient Comments Patient reports she walks a lot in the home is back to cooking, but hasn't gone for any long walks. Patient reports having tightness area of scar. Therapeutic Exercises Supine Exercises Modified Angelo stretch Supine Exercise Name thigh on mat lower LE off mat, opp UE toward chest Side bilateral Reps/Minutes X 2 60 sec with AROM knee flexion X 10 R X 1 L Comments verbal cues bridge Supine Exercise Name HEP Side bilateral Resistance level 2latex free band Reps/Minutes X15 X 2 Comments band added to HEP Sidelying Exercises hip abduction Side right Resistance level one band Reps/Minutes X 16 X 2 Comments VC for back fully to wall Standing Exercises ambulation with weight Standing Exercise 1 lb in each UE Name Reps/Minutes 15 feet then one min Comments verbal cues glute med isometric Standing Exercise HEP Name Reps/Minutes one min each side Comments verbal and visual cues prone hip ext Standing Exercise resting on pillows and bolster ( table height) Name Reps/Minutes X 15 Comments verbal and visual cues Gait Training Gait Activity Metronome Description 112 steps a minute is patient's rate Treatment Focus one min at 120 BPM without device Manual Therapy Treatment Soft Tissue Mobilization right hip Body Location scar,illiopsoas Mobilization Type Cross-Friction,Rolling Intensity/Depth Moderate Body Position Hooklying Physical Therapy Assessment Goals Four Impairment decreased scar and soft tissue mobility proximal right hip Group Home Paraprofessional Goal (LTG) Improve scar and soft tissue mobility to WNL to allow normal right hip function 03/15/2025 not assessed this session. LTG Duration 05/17/25 Three Impairment right hip ROM and strength impairments Short Term Goal (STG Patient will be able to demonstrate 75% HEP without ) cues and verbalize compliance 03/15/2025 Patient required one verbal cues for 1/7 exercises during review of HEP STG Duration 02/27/25 Group Home Paraprofessional Goal (LTG) right hip strength at least 4+/5 and ROM WNL to allow return to prior level of function 03/15/2025 Only R hip IR to 4+/5 04/03/25: good goal progress LTG Duration 05/17/25 Two Impairment step-to pattern on stairs using rail and SPC Group Home Paraprofessional Goal (LTG) Patient will be able to ascend and descend stairs with alternating pattern with one railing 03/15/2025 Patient able to asc and dec 4 six inch steps with one rail reciprocal pattern, reports no increased pain LTG Duration 05/17/25 MET One Impairment antalgic gait, uses FWW Short Term Goal (STG Patient able to ambulate for household distances using ) FWW without limp 03/15/2025 Patient able to ambulate in and out of clinic with no limp, reports having no pain with SPC. STG Duration met Group Home Paraprofessional Goal (LTG) Patient able to ambulate usual distances at home and community without assistive device, without limp1: mild limp with cane, appears habitual. LTG Duration 05/17/25 Assessment Summary Assessment Good reanna to glute med isometric at wall and addition of level one band to sidelying hip abduction. Scar continues to cause sensation of tightness and ipsilateral trunk side bend with stance phase R persists. Physical Therapy Plan Frequency and Duration Frequency of 2x/Week Treatment Duration of 12 treatment (weeks) Plan of Care Start 02/15/25 Date Plan of Care End 05/17/25 Date Next Visit Focus/Plan Next Note Type Treatment Note Next Visit Plan Gait training with mirror, gait on uneven surfaces, continue progressive strengthening focused on functional.
--- NOTE | 2025-04-09 17:01 | PT.OTN ---
Current Diagnoses Unilateral primary osteoarthritis, right hip (04/09/25) Physical Therapy Treatment Note PT OP: Lower Back/Lower Extremity Start: 02/15/25 08:31 Freq: Status: Active Protocol: Document 04/09/25 10:44 SAK (Rec: 04/09/25 11:33 SAK Laptop) Out-Patient Physical Therapy Visit Information Visit Information Visit Type Treatment Note Visit Start Time 10:44 Visit Stop Time 11:30 Visit Number 10 Number of ASSOCIATE PROFESSOR OF MUSIC Visits 1 Progress Note Due 04/14/25 Precautions Precautions BROWN hearing aids BBB Current Condition History of Current Condition Onset Date 01/29/25 Current Complaints right hip tight, painful, difficulty walking History of Current Right BROWN (anterior approach). Complication of hives Condition 02/09/25 days later, in ER. Uncertain of precautions. Has exercise handouts, doing some of the time. Comes to PT walking with walker, hopeful to be able to walk without device. Prior to surgery used SPC. Sleeping on main floor in recliner , has gone upstairs for shower 2x, walking sideways using railing. assisting with shower. assisting with right side dressing. Future Testing and Follow-up with surgeon 03/17/25 Treatments Planned OP-PT Subjective Patient Comments Patient Comments No new c/o except a little depressed with the weather. Arben new ex well. Massaging her scar a couple times per day. Reports some cramping of left thigh and calf. Cardio Equipment Recumbent Elliptical (NuStep) Duration (Minutes) 6 Resistance 3-5 Seat Position 5 seen Other cues for LE alignment Gym Equipment Shuttle Recovery Unilateral Squats Resistance 37# Shuttle Recovery Stable Platform Reps/Time X 15 Bilateral Squats Details vc and tac cues for full ext with not locking out knees Resistance 62 Shuttle Recovery Stable Platform Reps/Time 15 X 2 Therapeutic Exercises Supine Exercises Modified Angelo stretch Supine Exercise Name thigh on mat lower LE off mat, opp UE toward chest Side bilateral Reps/Minutes X 2 60 sec with AROM knee flexion X 10 R X 1 L Comments verbal cues Sidelying Exercises hip abduction Side right Resistance level one band Reps/Minutes X 16 X 2 Comments VC for back fully to wall Standing Exercises ambulation with weight Standing Exercise 1 lb in each UE Name Reps/Minutes 1 min Comments verbal cues glute med isometric Standing Exercise HEP Name Reps/Minutes one min each side Comments verbal and visual cues prone hip ext Standing Exercise resting on pillows and bolster ( table height) Name Reps/Minutes X 15 Comments verbal and visual cues side stepping with band Resistance L1 TB Reps/Minutes 10 feet L and right X Comments with UE use VC and visual cues to avoid toeing out step up Standing Exercise step touch Name Reps/Minutes 10x Comments 4 stairs Manual Therapy Treatment Soft Tissue Mobilization right hip Body Location scar,illiopsoas Mobilization Type Cross-Friction,Rolling Intensity/Depth Moderate Body Position Hooklying Comments deep prep massage cream Physical Therapy Assessment Goals Four Impairment decreased scar and soft tissue mobility proximal right hip Controls Engineer Goal (LTG) Improve scar and soft tissue mobility to WNL to allow normal right hip function 03/15/2025 not assessed this session. LTG Duration 05/17/25 Three Impairment right hip ROM and strength impairments Short Term Goal (STG Patient will be able to demonstrate 75% HEP without ) cues and verbalize compliance 03/15/2025 Patient required one verbal cues for 1/ exercises during review of HEP STG Duration 02/27/25 Intermediate Goal (LTG) right hip strength at least 4+/5 and ROM WNL to allow return to prior level of function 03/15/2025 Only R hip IR to 4+/5 04/03/25: good goal progress LTG Duration 05/17/25 Two Impairment step-to pattern on stairs using rail and SPC Controls Engineer Goal (LTG) Patient will be able to ascend and descend stairs with alternating pattern with one railing 03/15/2025 Patient able to asc and dec 4 six inch steps with one rail reciprocal pattern, reports no increased pain LTG Duration 05/17/25 MET One Impairment antalgic gait, uses FWW Short Term Goal (STG Patient able to ambulate for household distances using ) FWW without limp 03/15/2025 Patient able to ambulate in and out of clinic with no limp, reports having no pain with SPC. STG Duration met Controls Engineer Goal (LTG) Patient able to ambulate usual distances at home and community without assistive device, without limp1: mild limp with cane, appears habitual. LTG Duration 05/17/25 Assessment Summary Assessment Patient walks into PT without cane, ambulating with lateral sway, able to mostly correct with gait training in front of mirror. Able to progress weight with shuttle leg press. Compliant to HEP. Physical Therapy Plan Frequency and Duration Frequency of 2x/Week Treatment Duration of 12 treatment (weeks) Plan of Care Start 02/15/25 Date Plan of Care End 05/17/25 Date Therapeutic Interventions Therapeutic Gait Training,Home Exercise Program,Manual Therapy, Interventions Neuromuscular Re-education,Patient/Caregiver Education, Self-Care/Home Management,Soft Tissue Mobilization, Taping,Therapeutic Activities,Therapeutic Exercises Modalities Cold Pack/Ice Massage,Hot Packs Next Visit Focus/Plan Next Note Type Treatment Note Next Visit Plan Gait training with mirror, gait training with metronome , gait on uneven surfaces, continue progressive strengthening focused on hip ab activation followed by functional closed chain ex.
--- NOTE | 2025-04-11 12:20 | PT.OTN ---
Current Diagnoses Unilateral primary osteoarthritis, right hip (04/11/25) Physical Therapy Treatment Note PT OP: Lower Back/Lower Extremity Start: 02/15/25 08:31 Freq: Status: Active Protocol: Document 04/11/25 11:10 AB (Rec: 04/11/25 12:20 AB [id number]) Out-Patient Physical Therapy Visit Information Visit Information Visit Type Treatment Note Visit Note Access Code: [email or web address] Visit Start Time 11:35 Visit Stop Time 12:18 Visit Number 11 Number of SENIOR VISUAL DESIGNER Visits 2 Progress Note Due 04/14/25 Precautions Precautions BROWN hearing aids BBB OP-PT Subjective Patient Comments Patient Comments Debbie reports she has no complaints. Therapeutic Exercises Sitting Exercises seated hip flexor stretc Equipment Used BIG chair Reps/Minutes 60 sec X2 Comments verbal cues Standing Exercises ambulation with weight Standing Exercise 2 lb in each UE Name Reps/Minutes 1 min Comments verbal cues glute med isometric Standing Exercise HEP Name Reps/Minutes one min each side Comments verbal and visual cues prone hip ext Standing Exercise holding // bar Name Side bilateral Resistance level one band calf stretch Standing Exercise Gastroc and soleus on CAM Name Reps/Minutes 60 sec each stretch also step thru X 10 each LE Comments verbal cues side stepping with band Resistance L2 TB Reps/Minutes 10 feet L and right Xv3 Comments with UE use VC and visual cues to avoid toeing out sit to stand Standing Exercise HEP Name Side bilateral Resistance level 4 band Reps/Minutes X10 X 3 Comments monitored for pain Gait Training Gait Activity Metronome Treatment Focus 8 min at 120 BPM without device Comments out doors and indoors Physical Therapy Assessment Goals Four Impairment decreased scar and soft tissue mobility proximal right hip Gun Examiner Goal (LTG) Improve scar and soft tissue mobility to WNL to allow normal right hip function 03/15/2025 not assessed this session. LTG Duration 05/17/25 Three Impairment right hip ROM and strength impairments Short Term Goal (STG Patient will be able to demonstrate 75% HEP without ) cues and verbalize compliance 03/15/2025 Patient required one verbal cues for 1/7 exercises during review of HEP STG Duration 02/27/25 Senior Care Goal (LTG) right hip strength at least 4+/5 and ROM WNL to allow return to prior level of function 03/15/2025 Only R hip IR to 4+/5 04/03/25: good goal progress LTG Duration 05/17/25 Two Impairment step-to pattern on stairs using rail and SPC Senior Care Goal (LTG) Patient will be able to ascend and descend stairs with alternating pattern with one railing 03/15/2025 Patient able to asc and dec 4 six inch steps with one rail reciprocal pattern, reports no increased pain LTG Duration 05/17/25 MET One Impairment antalgic gait, uses FWW Short Term Goal (STG Patient able to ambulate for household distances using ) FWW without limp 03/15/2025 Patient able to ambulate in and out of clinic with no limp, reports having no pain with SPC. STG Duration met Gun Examiner Goal (LTG) Patient able to ambulate usual distances at home and community without assistive device, without limp1: mild limp with cane, appears habitual. LTG Duration 05/17/25 Assessment Summary Assessment Decreased step length, ipsilateral trunk sidebend with ambulation persists, but decreased with Metronome ambulation out doors toward end of session. Progress to band at ankle with standing hip extension and level 2 band with side stepping this session. Physical Therapy Plan Frequency and Duration Frequency of 2x/Week Treatment Duration of 12 treatment (weeks) Plan of Care Start 02/15/25 Date Plan of Care End 05/17/25 Date Next Visit Focus/Plan Next Note Type Treatment Note Next Visit Plan Gait training with mirror, gait training with metronome , gait on uneven surfaces, continue progressive strengthening focused on hip ab activation followed by functional closed chain ex.
--- NOTE | 2025-04-16 11:27 | PT.OPPN ---
Current Diagnoses Unilateral primary osteoarthritis, right hip (04/16/25) Physical Therapy Progress Note PT OP: Lower Back/Lower Extremity Start: 02/15/25 08:31 Freq: Status: Active Protocol: Document 04/16/25 10:45 SAK (Rec: 04/16/25 11:27 SAK Laptop) Out-Patient Physical Therapy Visit Information Visit Information Visit Type Treatment Note Visit Note Access Code: [email or web address] Visit Start Time 10:46 Visit Number 12 Number of SURGICAL TECHNOLOGY INSTRUCTOR Visits 0 Progress Note Due 04/14/25 Precautions Precautions BROWN hearing aids BBB Current Condition History of Current Condition Onset Date 01/29/25 Current Complaints right hip tight, painful, difficulty walking History of Current Right BROWN (anterior approach). Complication of hives Condition 02/09/25 days later, in ER. Uncertain of precautions. Has exercise handouts, doing some of the time. Comes to PT walking with walker, hopeful to be able to walk without device. Prior to surgery used SPC. Sleeping on main floor in recliner , has gone upstairs for shower 2x, walking sideways using railing. assisting with shower. assisting with right side dressing. Future Testing and Follow-up with surgeon 03/17/25 Treatments Planned OP-PT Subjective Patient Comments Patient Comments No new c/o, feels like she is walking better. Doing HEP most days. States she had muscle cramps in her good leg last night but stretching helped. Cardio Equipment Recumbent Elliptical (NuStep) Duration (Minutes) 10 Resistance 3-5 Seat Position 5 seen Other cues for LE alignment Gym Equipment Shuttle Recovery Unilateral Squats Resistance 37# Shuttle Recovery Stable Platform Reps/Time X 15 Bilateral Squats Details vc and tac cues for full ext with not locking out knees Resistance 62 Shuttle Recovery Stable Platform Reps/Time 15 X 2 Therapeutic Exercises Supine Exercises Modified Angelo stretch Supine Exercise Name thigh on mat lower LE off mat, opp UE toward chest Side bilateral Reps/Minutes X 2 60 sec with AROM knee flexion X 10 R X 1 L Comments verbal cues Standing Exercises march Reps/Minutes 10 ft x 6 Comments cues for slow, controlled lunge Reps/Minutes 10x hollie Comments cues for technique, glut engagement prone hip ext Standing Exercise resting forward on table Name Side bilateral Resistance L1 TB calf stretch Standing Exercise Gastroc and soleus on CAM Name Reps/Minutes 60 sec each stretch also step thru X 10 each LE Comments verbal cues side stepping with band Resistance L2 TB Reps/Minutes 10 feet L and right Xv3 Comments with UE use VC and visual cues to avoid toeing out step up Standing Exercise step touch Name Resistance 2# hollie Reps/Minutes 30x Comments 4 stairs sit to stand Standing Exercise HEP Name Side bilateral Resistance level 4 band Reps/Minutes X10 X 3 Comments monitored for pain Gait Training Gait Activity Metronome Treatment Focus 5 min at 120 BPM without device Comments indoors Manual Therapy Treatment Soft Tissue Mobilization right hip Body Location scar,illiopsoas Mobilization Type Cross-Friction,Rolling Intensity/Depth Moderate Body Position Hooklying Comments deep prep massage cream Physical Therapy Assessment Goals Four Impairment decreased scar and soft tissue mobility proximal right hip Penitentiary Goal (LTG) Improve scar and soft tissue mobility to WNL to allow normal right hip function 03/15/2025 not assessed this session. : much improved scar tissue mobility, pt. doing on own at home 2x/day LTG Duration 05/17/25 Three Impairment right hip ROM and strength impairments Short Term Goal (STG Patient will be able to demonstrate 75% HEP without ) cues and verbalize compliance 03/15/2025 Patient required one verbal cues for 1/7 exercises during review of HEP 04/16/25:mostly met STG Duration 02/27/25 Toolroom Machinist Goal (LTG) right hip strength at least 4+/5 and ROM WNL to allow return to prior level of function 03/15/2025 Only R hip IR to 4+/5 04/03/25: good goal progress LTG Duration 05/17/25 Two Impairment step-to pattern on stairs using rail and SPC Penitentiary Goal (LTG) Patient will be able to ascend and descend stairs with alternating pattern with one railing 03/15/2025 Patient able to asc and dec 4 six inch steps with one rail reciprocal pattern, reports no increased pain LTG Duration 05/17/25 MET One Impairment antalgic gait, uses FWW Short Term Goal (STG Patient able to ambulate for household distances using ) FWW without limp 03/15/2025 Patient able to ambulate in and out of clinic with no limp, reports having no pain with SPC. STG Duration met Penitentiary Goal (LTG) Patient able to ambulate usual distances at home and community without assistive device, without limp 04/03/25: mild limp with cane, appears habitual. 04/16/25: much improved, very min limp without cane LTG Duration 05/17/25 Progress Towards Goals Progress Towards Progressing Toward Goals Goals Assessment Summary Assessment Much improved gait with less lateral lean, improved symmetry and gait speed. Progressed to L2 TB with sidestepping and hip ext. Should be ready for discharge after one further PT treatment. Physical Therapy Plan Frequency and Duration Frequency of 2x/Week Treatment Duration of 12 treatment (weeks) Plan of Care Start 02/15/25 Date Plan of Care End 05/17/25 Date Therapeutic Interventions Therapeutic Gait Training,Home Exercise Program,Manual Therapy, Interventions Neuromuscular Re-education,Patient/Caregiver Education, Self-Care/Home Management,Soft Tissue Mobilization, Taping,Therapeutic Activities,Therapeutic Exercises Modalities Cold Pack/Ice Massage,Hot Packs Next Visit Focus/Plan Next Note Type Discharge Summary Next Visit Plan Review HEP, update as indicated. Further gait training , include uneven surfaces. Anticipate discharge after 1 further PT visit.
--- NOTE | 2025-04-18 13:49 | PT.OPDS ---
Current Diagnoses Unilateral primary osteoarthritis, right hip (04/18/25) Visit Care Team Role Provider Type Huy Singh MD Primary Care Provider Physician Specialty: Family Practice Obstetrics Address: [address] [place], [address] Email: [email or web address] Komal Herrera PA-C Attending Provider Advanced Inside Solar Sales Consultant Referring Provider Specialty: Orthopedics Orthopedic Surgery Address: [address] [facility] [place] [place], [address] Email: [email or web address] Visit Number Visit Number 13 Discharge Summary PT OP: Lower Back/Lower Extremity Start: 02/15/25 08:31 Freq: Status: Active Protocol: Document 04/18/25 10:13 (Rec: 04/18/25 11:30 [id number]) Out-Patient Physical Therapy Visit Information Visit Information Visit Type Discharge Summary Visit Note Access Code: [email or web address] Visit Start Time 10:45 Visit Stop Time 11:30 Visit Number 13 Number of REAL ESTATE SPECIALIST Visits 0 Progress Note Due 04/14/25 Precautions Precautions BROWN hearing aids BBB OP-PT Subjective Patient Comments Patient Comments Patient reports she is doing well S/P R BROWN. Reports only complaints is left outer thigh ache (06/02) in the evenings and with going to bed. Feels may be related to compensation due to R BROWN. Therapeutic Exercises Supine Exercises bridge Supine Exercise Name Bridge Side bilateral Resistance level 2latex free band Reps/Minutes X10 Comments band added to HEP HS stretch Supine Exercise Name Supine Hamstring Stretch Side bilateral Reps/Minutes 10 sec, 3reps, 1xday Sidelying Exercises Clamshell Circuit Sidelying Exercise Clamshell, Adv Clam, Hip Abd in SL Name Side bilateral Reps/Minutes 10x, 2 sets Comments HEP - Reports difficulty with sideline hip abd so educated in clam circuit Standing Exercises Sidestepping w/Resistance Standing Exercise Sidestepping w/Resistance Band at table Name Side bilateral Resistance Green elastic band Comments W/Mini-Squat, Cueing for Posture Single Leg Stance Standing Exercise Single Leg Stance Name Side bilateral Reps/Minutes 30 sec, 3x, 2xday Hip Abd Standing Exercise Hip Abd in standing w/UE support Name Side bilateral Reps/Minutes 10x, 1-3 sets, 2xday Physical Therapy Assessment Goals Four Impairment decreased scar and soft tissue mobility proximal right hip Digital Publishing Specialist Goal (LTG) Improve scar and soft tissue mobility to WNL to allow normal right hip function 03/15/2025 not assessed this session. : much improved scar tissue mobility, pt. doing on own at home 2x/day LTG Duration 05/17/25 Three Impairment right hip ROM and strength impairments Short Term Goal (STG Patient will be able to demonstrate 75% HEP without ) cues and verbalize compliance 03/15/2025 Patient required one verbal cues for 05/30 exercises during review of HEP 04/16/25:mostly met STG Duration 02/27/25 Senior Care Goal (LTG) right hip strength at least 4+/5 and ROM WNL to allow return to prior level of function 03/15/2025 Only R hip IR to 4+/5 04/03/25: good goal progress LTG Duration 05/17/25 Two Impairment step-to pattern on stairs using rail and SPC Digital Publishing Specialist Goal (LTG) Patient will be able to ascend and descend stairs with alternating pattern with one railing 03/15/2025 Patient able to asc and dec 4 six inch steps with one rail reciprocal pattern, reports no increased pain LTG Duration 05/17/25 MET One Impairment antalgic gait, uses FWW Short Term Goal (STG Patient able to ambulate for household distances using ) FWW without limp 03/15/2025 Patient able to ambulate in and out of clinic with no limp, reports having no pain with SPC. STG Duration met Senior Care Goal (LTG) Patient able to ambulate usual distances at home and community without assistive device, without limp 04/03/25: mild limp with cane, appears habitual. 04/16/25: much improved, very min limp without cane LTG Duration 05/17/25 Assessment Summary Assessment Focus today on review and progression of home exercise program with emphasis on hip strengthening. Patient reports she feels ready to discharge from physical therapy following today's session as planned by primary PT. Physical Therapy Plan Discharge Physical Therapy Discharge Reasons Patient Request Discharge Comments Patient reports she feels ready to discharge from physical therapy following today's session as planned by primary PT.
== END 2025-04-23 09:28 | disposition home or self-care (01) ==
LOC: PHYS 10:45
PROVIDERS: PCP Family Medicine; Referring Provider Physician Assistant Surgical; Visit Provider Physician Assistant Surgical
DX: M16.11 Unilateral primary osteoarthritis, right hip (principal)
CPT/HCPCS: 97110; 97112; 97116; 97140; 97161; 97530; 97535